=== PATIENT | male | born 1970 | race Caucasian/White ===

== ENCOUNTER 2018-04-02 12:34 | Outpatient (CLI) | payer BC ==
--- NOTE | 2018-04-02 13:45 | ULT ---
ULTRASOUND WITH DOPPLER DUPLEX VENOUS LOWER EXTREMITY LEFT: HISTORY: A 47-year-old male with M79.605, acute pain of left lower extremity. TECHNIQUE: Color flow Doppler, spectral waveform analysis of pulsed Doppler, and alfaro-scale imaging with taylor ceferino and augmentation were used to evaluate the left common femoral, femoral, popliteal, posterior ti bial, and superficial femoral veins, and the proximal portions of the profunda femoral and greater sa phenous veins. FINDINGS: There is normal compressibility, demonstration of blood flow by color Doppler and pulsed Doppler, and response to augmentation, in all interrogated veins. IMPRESSION: Negative. No deep vein thrombosis in the left lower extremity. jn[] POS: DAVID
== END 2018-04-02 12:35 | disposition home or self-care (01) ==
LOC: ULT 12:34
PROVIDERS: ATTEND Family Medicine
DX: M79.605 Pain in left leg (principal)

== ENCOUNTER 2018-05-02 14:43 | Outpatient (CLI) | payer BC ==
[~2018-05-02 14:43] MED LIST: Gadobenate Dimeglumine 529 MG/1 ML (20ML VIAL) ONE
--- NOTE | 2018-05-02 17:32 | RAD ---
TWO VIEWS OF THE LEFT FOOT: DATE: 05/02/2018. COMPARISON: None. HISTORY: Swelling and tenderness, edema and pain. FINDINGS: Mild degenerative change noted at the 1st metatarsal phalangeal joint. There is mild enthesophyte fo rmation at the insertion of the Achilles tendon. No displaced fracture or dislocation. IMPRESSION: No acute osseous abnormality. POS: C
--- NOTE | 2018-05-02 17:36 | RAD ---
LEFT FORELEG RADIOGRAPHS 2 VIEWS: DATE: 05/02/2018. PROVIDED CLINICAL HISTORY: Left leg pain. FINDINGS: No evidence for a fracture or other acute osseous abnormality. If there is persistent clinical penny rn, conservative management and followup imaging are advised. IMPRESSION: As above. POS: ZAYDA
--- NOTE | 2018-05-03 08:48 | MRI ---
MRI LEFT FORELEG: DATE: 05/02/2018. PROVIDED CLINICAL HISTORY: Left leg pain and swelling without injury. FINDINGS: Evaluation is limited by poor signal to noise ratio. There is diffuse noncircumscribed fluid signal intensity within the subcutaneous adipose layer circumferentially about the foreleg, primarily distal ly. There is a fascial-based fluid collection superficial to the medial head of the gastrocnemius mu scle which appears likely confluent with a Osei's cyst. There is also some signal alteration presen t within the gastrocnemius muscle and it is possible that this reflects sequelae of medial head gastr ocnemius injury with associated fascial hematoma. Regional marrow signal appears grossly normal. Th e courses of the regional major neurovascular structures appear grossly normal. IMPRESSION: 1. Limited study. 2. Diffuse noncircumscribed fluid signal intensity within the subcutaneous adipose layer about the f oreleg primarily distally. Lymphedema and cellulitis are possible. 3. Small fascial fluid collection superficial to the medial head of the gastrocnemius muscle. This may reflect changes related to ruptured Osei's cyst. This could also reflect fluid collection relat ed to prior myofascial tear of the medial head of the gastrocnemius muscle. POS: TPC
--- NOTE | 2018-05-03 08:55 | MRI ---
MRI LEFT KNEE WITH AND WITHOUT IV CONTRAST: Date: 05/02/18 PROVIDED CLINICAL HISTORY: Posterior left knee pain. FINDINGS: Evaluation for internal derangement is limited due to the protocol selected. The anterior cruciate li gament, posterior cruciate ligament, medial collateral ligament, and lateral collateral ligamentous c omplex appears intact, as does the extensor mechanism. Evaluation of the menisci, in particular, is limited. No evidence for displaced meniscal tear. There is articular cartilage loss that involves the full thickness of the articular cartilage involving the central weightbearing portions of the medial femoral condyle. There is a moderate to large knee joint effusion with Osei's cyst formation, which appears confluent with fluid signal intensity superficial to the medial head of the gastrocnemius mu scle that may indicate rupture. The postcontrast images demonstrate a somewhat thickened and enhancin g appearance to the synovium of the knee joint suggesting synovitis. Regional marrow and muscular sig nal appear normal. IMPRESSION: 1. Conspicuous degenerative chondrosis involving the central weightbearing portions of the medial fe moral condyle with full thickness articular cartilage loss. 2. Moderate to large knee joint effusion with findings suggesting synovitis and probable ruptured Ba ker's cyst. POS: TPC
== END 2018-05-02 14:44 | disposition home or self-care (01) ==
LOC: BICMRI 14:43
PROVIDERS: ATTEND Family Medicine
DX: M25.562 Pain in left knee (principal); M79.605 Pain in left leg; R60.0 Localized edema; I87.2 Venous insufficiency (chronic) (peripheral); M79.662 Pain in left lower leg; M25.462 Effusion, left knee; T14.8XXA Other injury of unspecified body region, initial encounter; M24.10 Other articular cartilage disorders, unspecified site
CPT/HCPCS: A9579

== ENCOUNTER 2018-10-29 12:53 | Outpatient (CLI) | payer BC ==
--- NOTE | 2018-10-29 13:11 | RAD ---
FExam: Chest 2 view HISTORY:Dyspnea Comparison: 04/04/2018 FINDINGS: Lungs: No masses or consolidation. Cardiac silhouette: Normal size Pulmonary vessels: Normal Pleural Spaces: Clear Pneumothorax: None Osseous abnormalities: Osseous degenerative changes IMPRESSION: No acute cardiopulmonary process.
== END 2018-10-29 12:54 | disposition home or self-care (01) ==
LOC: RAD 12:53
PROVIDERS: ATTEND Internal Medicine Critical Care Medicine
DX: R06.00 Dyspnea, unspecified (principal)
CPT/HCPCS: 71046

== ENCOUNTER 2019-12-17 14:59 | Inpatient (IN) | payer BC ==
[2019-12-17] MEDS ORDERED: Senokot S 8.6-50 MG TAB PO PRN (15:24)
[2019-12-17] MEDS ORDERED: Morphine 2 MG/ML SYRINGE SLOW IVP PRN (15:30)
[2019-12-17] MEDS: metroNIDAZOLE 500 MG in Premix Bag 1 BAG IVPB SCH (16:01)
[2019-12-17] MEDS: oxyCODONE/Acetaminophen 5 mg/325 mg Tablet PO PRN (16:01)
--- NOTE | 2019-12-17 16:13 | HP ---
CHIEF COMPLAINT: Throat pain. HISTORY OF PRESENT ILLNESS: A 49-year-old male with recent history of pneumonia , had swelling on his lower lips and also he has ongoing two weeks of nosebleed intermittently. He is recently recovering from pneumonia. He lives alone. He is a divorcee. He had a right hip replacement in the fall 2018. Since then, his functional status is declining, he states. He did not have any fever, night sweats, or chills. No sick exposure. He is using Afrin for his epistaxis. Currently, it is better. He is transferred from [facility]. His angioedema is improved. He is on lisinopril for some time and he stopped taking since last night. He quit smoking a couple of years ago. At a previous facility, Dr. Rodriguez, ENT has been notified. They had CT scan done, it showed phlegmon in the pharynx. He is transferred here for IV antibiotics and further ENT evaluation. REVIEW OF SYSTEMS: A 13-point review of systems reviewed. The pertinents addressed in the history of present illness, the rest are negative. Including no recent fever, night sweats, or chills. However, he is recently recovering from pneumonia. He has no currently productive cough. No chest pain, orthopnea, PND, or lower extremity edema. No nausea, vomiting, abdominal pain, constipation, hematuria, or dysuria. Denies any headache, tingling, or numbness in his extremities. PAST MEDICAL HISTORY: Hypertension. MEDICATIONS: Lisinopril. PAST SURGICAL HISTORY: Right hip replacement in the fall 2018. SOCIAL HISTORY: Quit smoking two years ago. He uses alcohol daily. FAMILY HISTORY: Noncontributory. PHYSICAL EXAMINATION: VITAL SIGNS: He is afebrile, normotensive. He looks nontoxic. HEENT: I did not examine him closely for his throat at this point as he is COVID rule out pending. CARDIOVASCULAR: Regular rate and rhythm without murmurs, rubs, or gallops. LUNGS: Clear to auscultation bilaterally. ABDOMEN: Soft, nontender, and nondistended. Good bowel sounds. EXTREMITIES: Without any pitting edema. NEUROLOGIC: No focal deficits. LABORATORY DATA: Labs done at [facility] did not show any elevated white count. CT scan showed some phlegmon in the retropharyngeal area. IMPRESSION AND PLAN: 1. A 49-year-old male with a history of hypertension on lisinopril, presented with angioedema in his lower lips as well as retropharyngeal abscess. 2. The patient received ceftriaxone, Flagyl, as well as vancomycin at the previous facility. I will start him here on Unasyn as well as Flagyl. I have consulted the ENT specialist, Dr. Rodriguez for further recommendations. They want to wait until COVID is ruled out. 3. Hypokalemia. His potassium is being replaced. 4. We will get stat labs for now as he is transferred from an outside facility. We will follow the clinical course. 5. He is hemodynamically stable. We will watch him closely. No significant swelling in his neck or the lips noted with the brief examination. 6. Full code. Job ID: [id number] MTDD
[2019-12-17] MEDS: Ampicillin/Sulbactam 1.5 GM in Sodium Chloride 0.9% 100 ML IVPB SCH ×2 (17:45→21:28)
[2019-12-17] MEDS: Sodium Chloride 0.9% 1,000 ML IV SCH (17:46)
[2019-12-18] MEDS: oxyCODONE/Acetaminophen 5 mg/325 mg Tablet PO PRN ×4 (00:03→23:04)
[2019-12-18] MEDS: metroNIDAZOLE 500 MG in Premix Bag 1 BAG IVPB SCH ×4 (00:03→23:03)
[2019-12-18] MEDS: Ampicillin/Sulbactam 1.5 GM in Sodium Chloride 0.9% 100 ML IVPB SCH ×4 (04:35→21:32)
[2019-12-18 05:05] LABS: #Basophils 0.1 thou/uL (0.0-0.2); #Lymphocytes 0.8 thou/uL (1.20-3.40); #Monocytes 0.8 thou/uL (0.11-0.59); #Neutrophils 5.4 thou/uL (1.40-6.50); %Eosinophils 0.1 % (0.0-10.0); %Lymphocytes 11.4 % (21.0-51.0); %Monocytes 11.4 % (0.0-10.0); %Neutrophils 76.2 % (42.0-75.0); Anion Gap 13 mmol/L (10-20); BUN (Urea Nitrogen) 13 mg/dL (8.9-20.6); Calc. Creatinine Clearance 218 mL/min (70-130); Calcium 8.1 mg/dL (7.8-10.44); Carbon Dioxide 24 mmol/L (22-29); Chloride 103 mmol/L (98-107); Estimated GFR-MDRD Greater than 90; Glucose 101 mg/dL (70-105); Hemoglobin 12.3 g/dL (14.0-18.0); Mean Corpuscular Hemoglobin 29.6 pg (27.0-31.0); Mean Corpuscular Volume 92.6 fL (78.0-98.0); Mean Platelet Volume 9.5 fL (7.4-10.4); Platelet Count 117 thou/uL (130-400); Platelet Morphology Comment Appears Decreased; RBC Distribution Width 14.5 % (11.5-14.5); Red Blood Cell (RBC) Count 4.17 mill/uL (4.70-6.10); Sodium 136 mmol/L (136-145)
[2019-12-18] MEDS ORDERED: Aluminum & Magnesium Hydroxide 60 ML, Lidocaine 2% Viscous Solution 30 ML, diphenhydrAM... SSW PRN (05:19)
[2019-12-18] MEDS: Aluminum & Magnesium Hydroxide 60 ML, Lidocaine 2% Viscous Solution 30 ML, diphenhydrAM... SSW PRN ×3 (06:09→23:03)
[2019-12-18 11:59] VITALS: BMI 42.9
--- NOTE | 2019-12-18 12:47 | PDOC.HOSPP ---
- Subjective Encounter Date: 12/18/19 Encounter Time: 09:40 Subjective: pt ambulkeyonna gin his room, able to eat and not much discomfort when swallows. explained ENT doc will see him after coivd r/o. facility where it was tested was contacted by nursing this am, and it appears they will call us w. the result, when they get it. - Objective Vital Signs & Weight: Vital Signs (12 hours) Temp Pulse Resp BP BP Pulse Ox 12/18/19 12:05 98.0 F 86 20 147/69 H 94 L 12/18/19 09:15 97.7 F 73 16 138/69 96 12/18/19 04:35 98.2 F 75 18 144/76 H 96 Weight Admit Weight 311 lb 8 oz Weight 316 lb 9.6 oz I&O: 12/17/19 12/18/19 12/19/19 06:59 06:59 06:59 Intake Total 1359 Balance 1359 Result Diagrams: 12/18/19 04:38 12/18/19 04:38 Hospitalist ROS - Medication Medications: Active Medications Generic Name Dose Route Start Last Admin Trade Name Freq PRN Reason Stop Dose Admin Al Hydroxide/Mg Hydroxide 60 0 ml 12/18/19 05:30 12/18/19 06:09 ml/ Lidocaine HCl 30 ml/ SSW 10 ml Diphenhydramine HCl 75 mg TID PRN Administration THROAT PAIN Ampicillin Sodium/Sulbactam 100 mls @ 200 mls/hr 12/17/19 16:00 12/18/19 10: 21 Sodium 1.5 gm/ Sodium Chloride IVPB 100 mls 0400,1000,1600,2200 LAKISHA Administration Metronidazole 500 mg/ Device 100 mls @ 100 mls/hr 12/17/19 16:00 12/18/19 09: 05 IVPB 100 mls 0800,1600,2359 LAKISHA Administration Sodium Chloride 1,000 mls @ 30 mls/hr 12/17/19 17:45 12/17/19 17:46 Normal Saline 0.9% IV 1,000 mls .Q24H LAKISHA Administration Vancomycin HCl 2 gm/ Sodium 500 mls @ 250 mls/hr 12/18/19 11:00 12/18/19 12: 00 Chloride IVPB 500 mls Q8H LAKISHA Administration Oxycodone/Acetaminophen 1 tab 12/17/19 15:29 12/18/19 04:59 Percocet 5/325 PO 1 tab Q4H PRN Administration Pain - Exam General Appearance: NAD, awake alert Eye: PERRL Neck: supple Heart: RRR Respiratory: CTAB, normal chest expansion Gastrointestinal: soft, normal bowel sounds Neurological: no focal deficits Psychiatric: normal behavior, A&O x 3 Hosp A/P - Plan angioedema --d/t ACEI - improved Retropharyngeal absecss --cw unasyn, flagyl and vanc -- explained ENT doc will see him after coivd r/o. facility where it was tested was contacted by nursing this am, and it appears they will call us w. the result, when they get it. --pending ENT evaluation.
[2019-12-18] MEDS: Sodium Chloride 0.9% 1,000 ML IV SCH (17:07)
[2019-12-18] MEDS ORDERED: Vancomycin 1 GM in Premix Bag 1 BAG IVPB SCH (21:00)
[2019-12-19 02:25] LABS: #Eosinphils 0.1 thou/uL (0.0-0.7); #Monocytes 0.5 thou/uL (0.11-0.59); #Neutrophils 4.5 thou/uL (1.40-6.50); %Basophils 0.6 % (0.0-1.0); %Eosinophils 0.8 % (0.0-10.0); %Lymphocytes 15.8 % (21.0-51.0); %Monocytes 8.8 % (0.0-10.0); Hemoglobin 12.8 g/dL (14.0-18.0); Mean Corpuscular HGB CONC 31.2 g/dL (32.0-36.0); Mean Corpuscular Hemoglobin 29.4 pg (27.0-31.0); Mean Corpuscular Volume 94.3 fL (78.0-98.0); Mean Platelet Volume 9.9 fL (7.4-10.4); Platelet Count 104 thou/uL (130-400); RBC Distribution Width 14.6 % (11.5-14.5); Red Blood Cell (RBC) Count 4.33 mill/uL (4.70-6.10); White Blood Cell (WBC) Count 6.1 thou/uL (4.8-10.8)
[2019-12-19 02:38] LABS: Vancomycin, Trough 17.2 ug/mL
[2019-12-19] MEDS: Ampicillin/Sulbactam 1.5 GM in Sodium Chloride 0.9% 100 ML IVPB SCH ×4 (04:45→21:57)
[2019-12-19] MEDS: metroNIDAZOLE 500 MG in Premix Bag 1 BAG IVPB SCH ×3 (07:42→23:23)
[2019-12-19] MEDS ORDERED: Iopamidol-370 76% 500 ML 1 ML ONE (09:58)
[2019-12-19] MEDS: Acetaminophen 325 MG TAB PO PRN ×2 (10:39→19:11)
[2019-12-19] MEDS: Aluminum & Magnesium Hydroxide 60 ML, Lidocaine 2% Viscous Solution 30 ML, diphenhydrAM... SSW PRN (10:39)
--- NOTE | 2019-12-19 12:30 | PDOC.HOSPP ---
- Subjective Encounter Date: 12/19/19 Encounter Time: 09:30 Subjective: pt feels quite nauseated. states that he has headache. able to have a good po intake. it appears no staffs noticed his emesis episodes. informed the pt to let the nursing know and d/w RN as well. pending covid test result. if negative , plan is to send him to ENT clinic here. If positive, then keep him as inpt and continue the medical mangaement for his retropharygeal abscess. [ie cont abx x7 days and if getting worse, we can involve Dr. Herr]. - Objective Vital Signs & Weight: Vital Signs (12 hours) Temp Pulse Resp BP Pulse Ox 12/19/19 11:00 98.4 F 84 16 176/76 H 95 12/19/19 07:45 98.5 F 85 16 153/68 H 93 L 12/19/19 05:05 98.3 F 88 18 167/82 H 93 L Weight Admit Weight 311 lb 8 oz Weight 316 lb 9.6 oz I&O: 12/18/19 12/19/19 12/20/19 06:59 06:59 06:59 Intake Total 1359 3600 Balance 1359 3600 Result Diagrams: 12/19/19 02:13 12/18/19 04:38 Hospitalist ROS - Medication Medications: Active Medications Generic Name Dose Route Start Last Admin Trade Name Freq PRN Reason Stop Dose Admin Acetaminophen 650 mg 12/17/19 15:24 12/19/19 10:39 Tylenol PO 650 mg Q4H PRN Administration Headache/Fever/Mild Pain (1-3) Al Hydroxide/Mg Hydroxide 60 0 ml 12/18/19 05:30 12/19/19 10:39 ml/ Lidocaine HCl 30 ml/ SSW 60 ml Diphenhydramine HCl 75 mg TID PRN Administration THROAT PAIN Ampicillin Sodium/Sulbactam 100 mls @ 200 mls/hr 12/17/19 16:00 12/19/19 09: 42 Sodium 1.5 gm/ Sodium Chloride IVPB 100 mls 0400,1000,1600,2200 LAKISHA Administration Metronidazole 500 mg/ Device 100 mls @ 100 mls/hr 12/17/19 16:00 12/19/19 07: 42 IVPB 100 mls 0800,1600,2359 LAKISHA Administration Sodium Chloride 1,000 mls @ 30 mls/hr 12/17/19 17:45 12/18/19 17:07 Normal Saline 0.9% IV 1,000 mls .Q24H LAKISHA Administration Vancomycin HCl 2 gm/ Sodium 500 mls @ 250 mls/hr 12/19/19 11:00 12/19/19 10: 38 Chloride IVPB 500 mls 0300,1100,1900 LAKISHA Administration Oxycodone/Acetaminophen 1 tab 12/17/19 15:29 12/18/19 23:04 Percocet 5/325 PO 1 tab Q4H PRN Administration Pain Sodium Chloride 10 ml 12/18/19 21:00 12/19/19 07:43 Flush - Normal Saline IVF 10 ml Q12HR LAKISHA Administration - Exam General Appearance: NAD, awake alert ENT: normocephalic atraumatic Neck: supple Heart: RRR Respiratory: CTAB, normal chest expansion Gastrointestinal: soft, normal bowel sounds Hosp A/P - Plan angioedema --d/t ACEI - improved Retropharyngeal absecss --cw unasyn, flagyl and vanc -- explained ENT doc will see him after coivd r/o. facility where it was tested was contacted by nursing this am, and it appears they will call us w. the result, when they get it. --pending ENT evaluation. pending covid test result. if negative, plan is to send him to ENT clinic here, per Dr. Rodriguez. If positive, then keep him as inpt and continue the medical mangaement for his retropharygeal abscess. [ie cont abx x7 days and if getting worse, we can involve Dr. Herr]. In my opinion, he may not need ID consult at this time, he is stable, no fever or high wbcs, and having good PO intake and no c/o dysphagia however, this am, he states that his pain is spreading to his ears-- he is on unasyn. H.e. since he is having nausea and headache, i am getting CT-head and CT - sinuses to make sure,w hat appears to be phlegmon is not spreading to [facility]. Dr. Rodriguez looked at the CT done at [facility] and felt that not overt abscess. pl follow up on HCT and sinuses and clinical course
[2019-12-19] MEDS: Sodium Chloride 0.9% 1,000 ML IV SCH (16:30)
--- NOTE | 2019-12-19 18:03 | CT ---
CT OF THE BRAIN WITHOUT CONTRAST: 12/19/19 COMPARISON: 04/04/18 HISTORY: Headache with nausea. TECHNIQUE: Multiple contiguous axial images were obtained in a CT of the brain without contrast. FINDINGS: The brain is normal in morphology and attenuation without focal lesions or o confluent areas of infar ction. There is no evidence of hydrocephalus, intracranial hemorrhage, or extra-axial fluid collectio n. The calvarium and overlying soft tissues are unremarkable. The visualized paranasal sinuses and masto id air cells are well aerated. IMPRESSION: No evidence of acute intracranial abnormality. POS: EAA
--- NOTE | 2019-12-19 18:32 | CT ---
CT SINUSES WITH CONTRAST: 12/19/19 COMPARISON: None. HISTORY: Headache. History of nose bleeds that take a long time of stop. Possible nasopharyngeal abscess. Eval uate for COVID-19. TECHNIQUE: Multiple contiguous axial images were obtained in a CT of the sinuses with contrast. Sagittal and cor onal reformats were performed. FINDINGS: No mucosal abnormality is seen in the nasopharynx or oropharynx. No focal fluid collection is seen. The paranasal sinuses are well aerated without mucosal thickening or opacification. The mastoid air c ells are well aerated. No facial fractures are identified. The globes and retrobulbar soft tissues are unremarkable. IMPRESSION: No significant abnormality. POS: EAA
[2019-12-19] MEDS: oxyCODONE/Acetaminophen 5 mg/325 mg Tablet PO PRN (21:57)
[2019-12-20] MEDS: Ampicillin/Sulbactam 1.5 GM in Sodium Chloride 0.9% 100 ML IVPB SCH ×5 (04:26→22:00)
[2019-12-20 05:51] LABS: #Eosinphils 0.2 thou/uL (0.0-0.7); #Lymphocytes 0.8 thou/uL (1.20-3.40); #Monocytes 0.5 thou/uL (0.11-0.59); #Neutrophils 3.5 thou/uL (1.40-6.50); %Basophils 0.2 % (0.0-1.0); %Eosinophils 3.3 % (0.0-10.0); %Monocytes 9.2 % (0.0-10.0); %Neutrophils 70.3 % (42.0-75.0); Hemoglobin 12.2 g/dL (14.0-18.0); Mean Corpuscular HGB CONC 31.3 g/dL (32.0-36.0); Mean Corpuscular Hemoglobin 29.3 pg (27.0-31.0); Mean Corpuscular Volume 93.6 fL (78.0-98.0); Mean Platelet Volume 9.7 fL (7.4-10.4); Platelet Count 107 thou/uL (130-400); RBC Distribution Width 14.8 % (11.5-14.5); Red Blood Cell (RBC) Count 4.17 mill/uL (4.70-6.10); White Blood Cell (WBC) Count 4.9 thou/uL (4.8-10.8)
[2019-12-20] MEDS: metroNIDAZOLE 500 MG in Premix Bag 1 BAG IVPB SCH ×2 (07:41→17:49)
[2019-12-20 10:52] LABS: Vancomycin, Trough 14.6 ug/mL
[2019-12-20] MEDS: oxyCODONE/Acetaminophen 5 mg/325 mg Tablet PO PRN ×2 (13:15→22:51)
--- NOTE | 2019-12-20 13:34 | PDOC.HOSPP ---
- Subjective Encounter Date: 12/20/19 Encounter Time: 13:33 Subjective: Mr. Schwartz was seen today in follow-up of epistaxis, Angioedema, and retropharyngeal abscess. He says he feels fine. He noted just a small amount of bleeding from his nose earlier. He denies trouble speaking or swallowing or breathing. - Objective Vital Signs & Weight: Vital Signs (12 hours) Temp Pulse Resp BP BP Pulse Ox 12/20/19 11:20 97.7 F 78 18 168/80 H 93 L 12/20/19 07:30 98.3 F 77 20 148/70 H 95 12/20/19 04:40 98.3 F 73 20 157/80 H 94 L Weight Admit Weight 311 lb 8 oz Weight 316 lb 9.6 oz I&O: 12/19/19 12/20/19 12/21/19 06:59 06:59 06:59 Intake Total 3600 3875 Balance 3600 3875 Result Diagrams: 12/20/19 04:35 12/18/19 04:38 Hospitalist ROS - Medication Medications: Active Medications Generic Name Dose Route Start Last Admin Trade Name Freq PRN Reason Stop Dose Admin Acetaminophen 650 mg 12/17/19 15:24 12/19/19 19:11 Tylenol PO 650 mg Q4H PRN Administration Headache/Fever/Mild Pain (1-3) Al Hydroxide/Mg Hydroxide 60 0 ml 12/18/19 05:30 12/19/19 10:39 ml/ Lidocaine HCl 30 ml/ SSW 60 ml Diphenhydramine HCl 75 mg TID PRN Administration THROAT PAIN Ampicillin Sodium/Sulbactam 100 mls @ 200 mls/hr 12/17/19 16:00 12/20/19 11: 15 Sodium 1.5 gm/ Sodium Chloride IVPB 100 mls 0400,1000,1600,2200 LAKISHA Administration Metronidazole 500 mg/ Device 100 mls @ 100 mls/hr 12/17/19 16:00 12/20/19 07: 41 IVPB 100 mls 0800,1600,2359 LAKISHA Administration Sodium Chloride 1,000 mls @ 30 mls/hr 12/17/19 17:45 12/19/19 16:30 Normal Saline 0.9% IV 1,000 mls .Q24H LAKISHA Administration Vancomycin HCl 2 gm/ Sodium 500 mls @ 250 mls/hr 12/19/19 11:00 12/20/19 13: 15 Chloride IVPB 500 mls 0300,1100,1900 LAKISHA Administration Oxycodone/Acetaminophen 1 tab 12/17/19 15:29 12/20/19 13:15 Percocet 5/325 PO 1 tab Q4H PRN Administration Pain Sodium Chloride 10 ml 12/18/19 21:00 12/20/19 07:42 Flush - Normal Saline IVF 10 ml Q12HR LAKISHA Administration - Exam Eye: PERRL, anicteric sclera Neck - other findings: No stridor Heart: RRR, no murmur, no gallops, no rubs Respiratory: CTAB, no wheezes, no rales, no ronchi, normal chest expansion, no tachypnea Gastrointestinal: soft, non-tender, non-distended, normal bowel sounds, no palpable masses, no hepatomegaly Extremities: no cyanosis, no clubbing, no edema Hosp A/P (1) Retropharyngeal abscess Code(s): J39.0 - RETROPHARYNGEAL AND PARAPHARYNGEAL ABSCESS Status: Acute (2) Epistaxis Code(s): R04.0 - EPISTAXIS Status: Acute (3) Angioedema Code(s): T78.3XXA - ANGIONEUROTIC EDEMA, INITIAL ENCOUNTER Status: Acute (4) Hypertension Code(s): I10 - ESSENTIAL (PRIMARY) HYPERTENSION Status: Acute - Plan * Retropharyngeal abscess- continue Unasyn, and Vancomycin * Can discontinue Flagyl * Epistaxis- resolving * Angioedema- will continue off Lisinopril * HTN- change blood pressure medication to Amlodipine
[2019-12-20] MEDS ORDERED: Amlodipine 5 MG TAB PO SCH (14:00)
[2019-12-20] MEDS: Sodium Chloride 0.9% 1,000 ML IV SCH (16:00)
[2019-12-20] MEDS ORDERED: Labetalol HCl 100 MG/20 ML VIAL SLOW IVP PRN (17:55)
[2019-12-20] MEDS ORDERED: hydrALAZINE 20 MG/ML VIAL SLOW IVP PRN (17:55)
[2019-12-20 19:55] LABS: SARS-CoV-2 MS2 Positive; SARS-CoV-2 N Gene Negative; SARS-CoV-2 S Gene Negative; SARS-CoV-2 orf1ab Negative
[2019-12-20] MEDS: cloNIDine 0.1 MG TAB PO PRN (21:30)
[2019-12-20] MEDS: Acetaminophen 325 MG TAB PO PRN (21:30)
[2019-12-21] MEDS: cloNIDine 0.1 MG TAB PO PRN (00:04)
[2019-12-21] MEDS: Ampicillin/Sulbactam 1.5 GM in Sodium Chloride 0.9% 100 ML IVPB SCH ×4 (00:40→22:56)
[2019-12-21 04:07] LABS: #Eosinphils 0.2 thou/uL (0.0-0.7); #Lymphocytes 1.1 thou/uL (1.20-3.40); #Monocytes 0.6 thou/uL (0.11-0.59); #Neutrophils 4.6 thou/uL (1.40-6.50); %Basophils 0.7 % (0.0-1.0); %Eosinophils 3.8 % (0.0-10.0); %Monocytes 9.2 % (0.0-10.0); %Neutrophils 70.3 % (42.0-75.0); Hemoglobin 12.4 g/dL (14.0-18.0); Mean Corpuscular HGB CONC 31.5 g/dL (32.0-36.0); Mean Corpuscular Hemoglobin 29.5 pg (27.0-31.0); Mean Corpuscular Volume 93.9 fL (78.0-98.0); Mean Platelet Volume 9.2 fL (7.4-10.4); Platelet Count 114 thou/uL (130-400); RBC Distribution Width 15.3 % (11.5-14.5); Red Blood Cell (RBC) Count 4.19 mill/uL (4.70-6.10); White Blood Cell (WBC) Count 6.6 thou/uL (4.8-10.8)
[2019-12-21] MEDS: Amlodipine 5 MG TAB PO SCH (08:17)
[2019-12-21] MEDS: oxyCODONE/Acetaminophen 5 mg/325 mg Tablet PO PRN ×2 (08:17→20:04)
--- NOTE | 2019-12-21 15:06 | PDOC.HOSPP ---
- Subjective Encounter Date: 12/21/19 Encounter Time: 15:04 Subjective: Ms. Schwartz was seen today in follow-up of Angioedema, and retropharyngeal abscess. He notes some pain in the back of his throat off and on , especially when he talks. He also notes a headache off and on. - Objective Vital Signs & Weight: Vital Signs (12 hours) Temp Pulse Resp BP BP Pulse Ox 12/21/19 11:01 86 18 179/85 H 93 L 12/21/19 08:12 98.7 F 81 20 184/89 H 94 L 12/21/19 08:11 94 L Weight Admit Weight 311 lb 8 oz Weight 316 lb 9.6 oz I&O: 12/20/19 12/21/19 12/22/19 06:59 06:59 06:59 Intake Total 3875 840 Output Total 800 700 Balance 3875 40 -700 Result Diagrams: 12/21/19 03:31 12/18/19 04:38 Hospitalist ROS - Medication Medications: Active Medications Generic Name Dose Route Start Last Admin Trade Name Freq PRN Reason Stop Dose Admin Acetaminophen 650 mg 12/17/19 15:24 12/20/19 21:30 Tylenol PO 650 mg Q4H PRN Administration Headache/Fever/Mild Pain (1-3) Amlodipine Besylate 5 mg 12/21/19 09:00 12/21/19 08:17 Norvasc PO 5 mg DAILY LAKISHA Administration Clonidine 0.1 mg 12/20/19 17:55 12/21/19 00:04 Catapres PO 0.1 mg Q4H PRN Administration SBP Greater Than 170 Al Hydroxide/Mg Hydroxide 60 0 ml 12/18/19 05:30 12/19/19 10:39 ml/ Lidocaine HCl 30 ml/ SSW 60 ml Diphenhydramine HCl 75 mg TID PRN Administration THROAT PAIN Hydralazine HCl 10 mg 12/20/19 17:55 12/21/19 03:54 Apresoline SLOW IVP 10 mg Q4H PRN Administration SBP > 180 and HR < 70 Sodium Chloride 1,000 mls @ 30 mls/hr 12/17/19 17:45 12/20/19 16:00 Normal Saline 0.9% IV 1,000 mls .Q24H LAKISHA Administration Vancomycin HCl 2 gm/ Sodium 500 mls @ 250 mls/hr 12/19/19 11:00 12/21/19 10: 54 Chloride IVPB 500 mls 0300,1100,1900 LAKISHA Administration Ampicillin Sodium/Sulbactam 100 mls @ 200 mls/hr 12/20/19 23:59 12/21/19 14: 32 Sodium 1.5 gm/ Sodium Chloride IVPB 100 mls Q6HR LAKISHA Administration Oxycodone/Acetaminophen 1 tab 12/17/19 15:29 12/21/19 08:17 Percocet 5/325 PO 1 tab Q4H PRN Administration Pain Sodium Chloride 10 ml 12/18/19 21:00 12/21/19 08:19 Flush - Normal Saline IVF Not Given Q12HR LAKISHA - Exam Eye: PERRL, anicteric sclera Neck - other findings: no stridor Heart: RRR, no murmur, no gallops, no rubs, normal peripheral pulses Respiratory: CTAB, no wheezes, no rales, no ronchi, normal chest expansion, no tachypnea, normal percussion Gastrointestinal: soft, non-tender, non-distended, normal bowel sounds, no palpable masses, no hepatomegaly Extremities: no cyanosis, no edema Hosp A/P (1) Retropharyngeal abscess Code(s): J39.0 - RETROPHARYNGEAL AND PARAPHARYNGEAL ABSCESS Status: Acute (2) Epistaxis Code(s): R04.0 - EPISTAXIS Status: Acute (3) Angioedema Code(s): T78.3XXA - ANGIONEUROTIC EDEMA, INITIAL ENCOUNTER Status: Acute (4) Hypertension Code(s): I10 - ESSENTIAL (PRIMARY) HYPERTENSION Status: Acute - Plan * Retropharyngeal abscess- continue Unasyn, and Vancomycin * Await ENT evaluation * Epistaxis- resolved * Angioedema- will continue off Lisinopril * HTN- Amlodipine was just started today- his blood pressure is a bit elevated - will continue Amlodipine and monitor the trend.
[2019-12-21] MEDS: Acetaminophen 325 MG TAB PO PRN (17:15)
[2019-12-22] MEDS: Ampicillin/Sulbactam 1.5 GM in Sodium Chloride 0.9% 100 ML IVPB SCH ×3 (02:10→15:50)
[2019-12-22] MEDS: Sodium Chloride 0.9% 1,000 ML IV SCH (07:28)
[2019-12-22] MEDS: Amlodipine 5 MG TAB PO SCH (08:18)
[2019-12-22] MEDS: oxyCODONE/Acetaminophen 5 mg/325 mg Tablet PO PRN ×2 (11:50→16:00)
--- NOTE | 2019-12-22 15:18 | PDOC.HOSPP ---
- Subjective Encounter Date: 12/22/19 Encounter Time: 15:16 Subjective: Mr. Schwartz was seen today in follow-up of retropharyngeal abscess and angioedema. He does not have any new complaints. - Objective Vital Signs & Weight: Vital Signs (12 hours) Temp Pulse Resp BP BP Pulse Ox 12/22/19 11:40 98.4 F 90 18 162/79 H 95 12/22/19 08:03 98.8 F 94 22 H 175/83 H 95 12/22/19 04:00 98.3 F 87 18 175/82 H 95 Weight Admit Weight 311 lb 8 oz Weight 309 lb 15.519 oz I&O: 12/21/19 12/22/19 12/23/19 06:59 06:59 06:59 Intake Total 840 3240 Output Total 800 700 Balance 40 2540 Result Diagrams: 12/21/19 03:31 12/18/19 04:38 Hospitalist ROS - Medication Medications: Active Medications Generic Name Dose Route Start Last Admin Trade Name Freq PRN Reason Stop Dose Admin Acetaminophen 650 mg 12/17/19 15:24 12/21/19 17:15 Tylenol PO 650 mg Q4H PRN Administration Headache/Fever/Mild Pain (1-3) Amlodipine Besylate 5 mg 12/21/19 09:00 12/22/19 08:18 Norvasc PO 5 mg DAILY LAKISHA Administration Clonidine 0.1 mg 12/20/19 17:55 12/21/19 00:04 Catapres PO 0.1 mg Q4H PRN Administration SBP Greater Than 170 Al Hydroxide/Mg Hydroxide 60 0 ml 12/18/19 05:30 12/19/19 10:39 ml/ Lidocaine HCl 30 ml/ SSW 60 ml Diphenhydramine HCl 75 mg TID PRN Administration THROAT PAIN Hydralazine HCl 10 mg 12/20/19 17:55 12/21/19 03:54 Apresoline SLOW IVP 10 mg Q4H PRN Administration SBP > 180 and HR < 70 Sodium Chloride 1,000 mls @ 30 mls/hr 12/17/19 17:45 12/22/19 07:28 Normal Saline 0.9% IV 1,000 mls .Q24H LAKISHA Administration Vancomycin HCl 2 gm/ Sodium 500 mls @ 250 mls/hr 12/19/19 11:00 12/22/19 11: 51 Chloride IVPB 500 mls 0300,1100,1900 LAKISHA Administration Ampicillin Sodium/Sulbactam 100 mls @ 200 mls/hr 12/21/19 20:30 12/22/19 08: 17 Sodium 1.5 gm/ Sodium Chloride IVPB 100 mls Q6H LAKISHA Administration Oxycodone/Acetaminophen 1 tab 12/17/19 15:29 12/22/19 11:50 Percocet 5/325 PO 1 tab Q4H PRN Administration Pain Sodium Chloride 10 ml 12/18/19 21:00 12/22/19 08:18 Flush - Normal Saline IVF 10 ml Q12HR LAKISHA Administration - Exam Eye: PERRL, anicteric sclera ENT: no oropharyngeal lesions, moist mucosa Neck - other findings: no stridor Heart: RRR, no murmur, no gallops, no rubs, normal peripheral pulses Respiratory: CTAB, no wheezes, no rales, no ronchi, normal chest expansion Gastrointestinal: soft, non-tender, non-distended, normal bowel sounds Extremities: no cyanosis, no edema Hosp A/P (1) Retropharyngeal abscess Code(s): J39.0 - RETROPHARYNGEAL AND PARAPHARYNGEAL ABSCESS Status: Acute (2) Epistaxis Code(s): R04.0 - EPISTAXIS Status: Acute (3) Angioedema Code(s): T78.3XXA - ANGIONEUROTIC EDEMA, INITIAL ENCOUNTER Status: Acute (4) Hypertension Code(s): I10 - ESSENTIAL (PRIMARY) HYPERTENSION Status: Acute - Plan * Retropharyngeal abscess- he is clinically improving * ENT was called. Since he is clinically stable he can be seen as an outpatient * Epistaxis- resolved * Angioedema- will continue off Lisinopril * HTN- Amlodipine was just started today- his blood pressure is a bit elevated - will continue Amlodipine and monitor the trend. * Stable for discharge home with close outpatient follow-up.
[2019-12-22 15:56] VITALS: BP 175/88; TEMP 98.8
[2019-12-22] MEDS: cloNIDine 0.1 MG TAB PO PRN (15:57)
--- NOTE | 2019-12-22 16:45 | DIS ---
DATE OF ADMISSION: 12/17/2019 DATE OF DISCHARGE: 12/22/2019 PRIMARY CARE PHYSICIAN: Sabas Carver MD DISCHARGE DIAGNOSES: 1. Retropharyngeal abscess. 2. Angioedema, likely secondary to lisinopril. 3. Hypertension, poorly controlled. 4. Morbid obesity with a BMI of 42. He is 6 feet tall, 309 pounds. 5. Epistaxis, resolved. DISCHARGE MEDICATIONS: 1. Augmentin 875 mg one p.o. twice daily for 7 days, multivitamin once daily. 2. Amlodipine 5 mg p.o. daily. 3. Florastor 250 mg p.o. daily. IMAGING STUDIES: Done during his hospital stay, the patient had a CT scan of the brain, which was negative for any acute intracranial abnormalities. The patient had a CT scan of the sinuses, which was negative. CODE STATUS: Full code. ALLERGIES: TO LISINOPRIL, WHICH IS A NEW ALLERGY DURING THIS HOSPITAL STAY. HOSPITAL COURSE: Mr. Schwartz is a pleasant 49-year-old gentleman, who was sent to our facility from the [facility] Emergency Room after he had presented there with lip and tongue swelling after suffering an episode of epistaxis and he was also noting some soreness in his throat. He had been on lisinopril for several years and being that this was the only likely culprit for the angioedema after doing a historical questioning, this was discontinued. He was transferred to our facility due to concerns for a possible retropharyngeal abscess. ENT was consulted and Dr. Rodriguez recommended that he be placed on IV antibiotics and monitored in the hospital for a few days. The patient never had any stridor or any findings of his airway compromise. Over the course of the next several days, he continued to improve. After removal of the lisinopril, the angioedema resolved completely. He was changed from lisinopril to amlodipine for blood pressure management. At the time of discharge, his blood pressure which had been as high as 180 and 190 systolic was down to 162 systolic and we expect continued blood pressure lowering with this dose of medication over the course of the next several days. This was explained to the patient and also that he would need close outpatient followup with Dr. Carver, who could continue to adjust and titrate his blood pressure medication. With regard to the retropharyngeal abscess, again there was no evidence of any airway compromise and therefore, the ENT evaluation will be deferred as an outpatient given that this was a holiday weekend and there was no emergent need for evaluation. Job ID: [id number]
== END 2019-12-22 17:30 | disposition home or self-care (01) | DRG 153 ==
LOC: 2SW 14:59 → 2NO 12-20 23:34
PROVIDERS: ADMIT Internal Medicine; ATTEND Internal Medicine
DX: J39.0 Retropharyngeal and parapharyngeal abscess (principal); Z68.41 Body mass index [BMI] 40.0-44.9, adult; E87.6 Hypokalemia; Z96.641 Presence of right artificial hip joint; W19.XXXA Unspecified fall, initial encounter; T78.3XXA Angioneurotic edema, initial encounter; I10 Essential (primary) hypertension; R04.0 Epistaxis; E66.01 Morbid (severe) obesity due to excess calories; T46.4X5A Adverse effect of angiotensin-converting-enzyme inhibitors, initial encounter; Z87.01 Personal history of pneumonia (recurrent); Z87.891 Personal history of nicotine dependence
CPT/HCPCS: 36415; 70450; 80048; 80202; 85025; 87635; J0295; J0360; J3370; J3490; J7030; Q0163; Q9967; U0003

== ENCOUNTER 2020-11-16 03:49 | Inpatient (IN) | payer BC ==
[2020-11-16 05:01] LABS: #Basophils 0.2 thou/uL (0.0-0.2); #Eosinphils 0.2 thou/uL (0.0-0.7); #Lymphocytes 3.2 thou/uL (1.20-3.40); #Monocytes 1.4 thou/uL (0.11-0.59); #Neutrophils 5.2 thou/uL (1.40-6.50); %Basophils 1.5 % (0.0-1.0); %Eosinophils 2.4 % (0.0-10.0); %Lymphocytes 30.9 % (21.0-51.0); %Monocytes 13.8 % (0.0-10.0); %Neutrophils 51.3 % (42.0-75.0); Mean Corpuscular HGB CONC 30.9 g/dL (32.0-36.0); Mean Corpuscular Volume 90.7 fL (78.0-98.0); Mean Platelet Volume 10.2 fL (7.4-10.4); Platelet Count 144 thou/uL (130-400); RBC Distribution Width 19.6 % (11.5-14.5); Red Blood Cell (RBC) Count 3.19 mill/uL (4.70-6.10); White Blood Cell (WBC) Count 10.2 thou/uL (4.8-10.8)
[2020-11-16 05:24] LABS: ALT (SGPT) 29 U/L (8-55); AST (SGOT) 109 U/L (5-34); Albumin 3.2 g/dL (3.5-5.0); Alkaline Phosphatase 160 U/L (40-110); Anion Gap 14 mmol/L (10-20); BUN (Urea Nitrogen) 9 mg/dL (8.9-20.6); Calc. Creatinine Clearance 0 mL/min (70-130); Calcium 9.5 mg/dL (7.8-10.44); Carbon Dioxide 27 mmol/L (22-29); Chloride 104 mmol/L (98-107); Globulin 4.2 g/dL (2.4-3.5); Glucose 100 mg/dL (70-105); Potassium 3.5 mmol/L (3.5-5.1); Protein, Total 7.4 g/dL (6.0-8.3); Sodium 141 mmol/L (136-145)
[2020-11-16] MEDS ORDERED: Furosemide 40 MG/4 ML VIAL ONE ×2 (05:42→13:16)
[2020-11-16 07:39] LABS: Troponin I 0.028 ng/mL (< 0.028)
[2020-11-16 10:38] LABS: Troponin I 0.025 ng/mL (< 0.028)
[2020-11-16] MEDS ORDERED: Magnesium 2 GM/50 ML 2 GM in Premix Bag 1 BAG IVPB SCH (11:15)
[2020-11-16] MEDS ORDERED: Magnesium 2 GM/50 ML BAG (IN WATER) ONE (13:17)
[2020-11-16] MEDS ORDERED: methylPREDNISolone Sod Succ 40 MG VIAL ONE (13:17)
[2020-11-16] MEDS: methylPREDNISolone Sod Succ 40 MG VIAL IVP SCH ×2 (13:35→21:55)
[2020-11-16] MEDS: Furosemide 40 MG/4 ML VIAL SLOW IVP SCH (13:35)
[2020-11-16] MEDS ORDERED: Acetaminophen 325 MG TAB ONE ×2 (14:35)
[2020-11-16] MEDS: Acetaminophen 325 MG TAB PO PRN ×2 (14:40→19:23)
[2020-11-16 16:30] LABS: Amphetamine Not Detected (NotDetected); Barbiturates Screen Not Detected (NotDetected); Benzodiazepine Screen Not Detected (NotDetected); Cocaine Metabolite Screen Not Detected (NotDetected); Medtox Control Line Valid? VALID (VALID); Medtox Reader # READER 4; Methadone Not Detected (NotDetected); Methamphetamine Not Detected (NotDetected); Opiate Screen Not Detected (NotDetected); Oxycodone Screen Not Detected (NotDetected); Phencyclidine (PCP) Not Detected (NotDetected); THC/Cannabinoid Screen Not Detected (NotDetected); Tricyclic Screen Not Detected (NotDetected)
[2020-11-16] MEDS ORDERED: Ondansetron PF 4 MG/2 ML Vial IVP PRN (18:45)
[2020-11-16] MEDS ORDERED: Ondansetron ODT 4 MG TAB PO PRN (18:45)
[2020-11-16] MEDS ORDERED: Labetalol HCl 100 MG/20 ML VIAL SLOW IVP PRN (18:46)
[2020-11-16 19:14] LABS: Hemoglobin 9.1 g/dL (14.0-18.0)
[2020-11-16] MEDS: hydrALAZINE 20 MG/ML VIAL SLOW IVP PRN (19:24)
[2020-11-16] MEDS: Metoprolol Tartrate 50 MG TAB PO SCH (21:54)
[2020-11-16] MEDS: Pantoprazole 40 MG VIAL IVP SCH (21:56)
[2020-11-17 00:01] LABS: Hemoglobin 9.3 g/dL (14.0-18.0)
[2020-11-17] MEDS: Acetaminophen 325 MG TAB PO PRN (00:40)
[2020-11-17] MEDS: Furosemide 40 MG/4 ML VIAL SLOW IVP SCH ×2 (05:31→16:30)
[2020-11-17] MEDS: methylPREDNISolone Sod Succ 40 MG VIAL IVP SCH (05:31)
[2020-11-17 06:29] LABS: #Basophils 0.1 thou/uL (0.0-0.2); #Lymphocytes 0.9 thou/uL (1.20-3.40); #Monocytes 0.5 thou/uL (0.11-0.59); #Neutrophils 6.4 thou/uL (1.40-6.50); %Basophils 0.7 % (0.0-1.0); %Eosinophils 0.1 % (0.0-10.0); %Lymphocytes 11.9 % (21.0-51.0); %Monocytes 6.4 % (0.0-10.0); %Neutrophils 80.9 % (42.0-75.0); Mean Corpuscular HGB CONC 32.1 g/dL (32.0-36.0); Mean Corpuscular Hemoglobin 28.9 pg (27.0-31.0); Mean Platelet Volume 10.2 fL (7.4-10.4); Platelet Count 123 thou/uL (130-400); RBC Distribution Width 19.6 % (11.5-14.5); Red Blood Cell (RBC) Count 3.44 mill/uL (4.70-6.10); White Blood Cell (WBC) Count 7.9 thou/uL (4.8-10.8)
[2020-11-17 06:37] LABS: SARS-CoV-2 PCR by NAA Not Detected (NotDetected)
[2020-11-17 06:49] LABS: Anion Gap 16 mmol/L (10-20); BUN (Urea Nitrogen) 11 mg/dL (8.9-20.6); Calc. Creatinine Clearance 184 mL/min (70-130); Calcium 9.4 mg/dL (7.8-10.44); Carbon Dioxide 28 mmol/L (22-29); Chloride 97 mmol/L (98-107); Glucose 124 mg/dL (70-105); Iron 125 ug/dL (65-175); Iron Binding Capacity, Total 394 mcg/dL (261-462); Potassium 3.9 mmol/L (3.5-5.1); Sodium 137 mmol/L (136-145)
[2020-11-17 07:08] LABS: Ferritin 95.57 ng/mL (22-322); Thyroid Stimulating Hormone 2.1806 uIU/mL (0.35-4.94)
[2020-11-17] MEDS: hydrALAZINE 20 MG/ML VIAL SLOW IVP PRN (08:36)
[2020-11-17] MEDS: Pantoprazole 40 MG VIAL IVP SCH ×2 (08:43→20:22)
[2020-11-17] MEDS ORDERED: Pantoprazole 40 MG VIAL IVP SCH (09:00)
[2020-11-17] MEDS ORDERED: Non-Formulary Item 1 EACH (Magnesium [Magnesium] 30 MG Tablet) PO SCH (09:00)
[2020-11-17] MEDS ORDERED: Amlodipine 10 MG TAB PO SCH (09:45)
[2020-11-17] MEDS ORDERED: hydrALAZINE 25 MG TAB PO SCH (09:45)
[2020-11-17] MEDS: Fioricet 325/50/40 mg Tablet PO PRN ×2 (10:29→20:24)
[2020-11-17] MEDS: Aspirin Chewable 81 MG TAB PO SCH (11:35)
[2020-11-17] MEDS: Metoprolol Tartrate 50 MG TAB PO SCH ×3 (11:35→20:20)
[2020-11-17] MEDS: Potassium Chloride 10 MEQ TAB PO SCH (11:37)
[2020-11-17] MEDS: Multivit, Therapeutic 1 TAB PO SCH (11:37)
[2020-11-17] MEDS ORDERED: Magnesium 2 GM/50 ML 2 GM in Premix Bag 1 BAG IVPB SCH (12:15)
[2020-11-17 13:34] VITALS: BMI 42.7
[2020-11-17] MEDS: hydrALAZINE 25 MG TAB PO SCH ×2 (16:30→20:19)
[2020-11-17 19:18] LABS: Cardiac Risk 6.8 (Less than 4.5)
[2020-11-17 19:58] LABS: Hemoglobin A1c 4.2 % (4.0-6.0)
[2020-11-18] MEDS: Fioricet 325/50/40 mg Tablet PO PRN (04:16)
[2020-11-18] MEDS: Furosemide 40 MG/4 ML VIAL SLOW IVP SCH ×2 (05:11→14:13)
[2020-11-18 07:46] LABS: #Lymphocytes 1.8 thou/uL (1.20-3.40); #Monocytes 1.3 thou/uL (0.11-0.59); #Neutrophils 6.4 thou/uL (1.40-6.50); %Basophils 0.2 % (0.0-1.0); %Eosinophils 0.5 % (0.0-10.0); %Lymphocytes 18.8 % (21.0-51.0); %Monocytes 13.4 % (0.0-10.0); %Neutrophils 67.1 % (42.0-75.0); Hemoglobin 9.2 g/dL (14.0-18.0); Mean Corpuscular HGB CONC 32.1 g/dL (32.0-36.0); Mean Corpuscular Hemoglobin 28.9 pg (27.0-31.0); Mean Platelet Volume 10.3 fL (7.4-10.4); Platelet Count 132 thou/uL (130-400); RBC Distribution Width 19.3 % (11.5-14.5); White Blood Cell (WBC) Count 9.5 thou/uL (4.8-10.8)
[2020-11-18] MEDS: Aspirin Chewable 81 MG TAB PO SCH (08:06)
[2020-11-18] MEDS: hydrALAZINE 25 MG TAB PO SCH (08:06)
[2020-11-18] MEDS: Potassium Chloride 10 MEQ TAB PO SCH (08:08)
[2020-11-18] MEDS: Metoprolol Tartrate 50 MG TAB PO SCH ×3 (08:08→14:21)
[2020-11-18] MEDS: Multivit, Therapeutic 1 TAB PO SCH (08:08)
[2020-11-18] MEDS: Pantoprazole 40 MG VIAL IVP SCH (08:09)
[2020-11-18 08:10] LABS: Anion Gap 15 mmol/L (10-20); BUN (Urea Nitrogen) 17 mg/dL (8.9-20.6); Calc. Creatinine Clearance 154 mL/min (70-130); Calcium 9.1 mg/dL (7.8-10.44); Carbon Dioxide 30 mmol/L (22-29); Chloride 95 mmol/L (98-107); Glucose 96 mg/dL (70-105); Potassium 3.1 mmol/L (3.5-5.1); Sodium 137 mmol/L (136-145)
[2020-11-18] MEDS ORDERED: Amlodipine 10 MG TAB PO SCH (09:00)
[2020-11-18 12:08] VITALS: BP 110/51; TEMP 98.3
[2020-11-18] MEDS ORDERED: Potassium Chloride 20 MEQ TAB PO SCH (13:15)
== END 2020-11-18 16:17 | disposition home or self-care (01) | DRG 291 ==
LOC: ERS 03:49 → ERHOLD 06:30 → OBSVTOIN 06:30 → 2SW 15:54
PROVIDERS: ADMIT Internal Medicine; ATTEND Internal Medicine
DX: I11.0 Hypertensive heart disease with heart failure (principal); I50.31 Acute diastolic (congestive) heart failure; J39.0 Retropharyngeal and parapharyngeal abscess; Z20.822 Contact with and (suspected) exposure to COVID-19; Z96.641 Presence of right artificial hip joint; D64.9 Anemia, unspecified; Z51.5 Encounter for palliative care; T78.3XXA Angioneurotic edema, initial encounter; R04.0 Epistaxis; E78.00 Pure hypercholesterolemia, unspecified; E66.9 Obesity, unspecified; Z68.41 Body mass index [BMI] 40.0-44.9, adult; Z87.891 Personal history of nicotine dependence; Z88.8 Allergy status to other drugs, medicaments and biological substances; Z79.82 Long term (current) use of aspirin; Z79.899 Other long term (current) drug therapy
CPT/HCPCS: 36415; 36416; 70450; 71045; 80048; 80053; 80061; 80306; 82274; 82728; 83036; 83540; 83550; 83735; 83880; 84443; 84484; 85025; 87635; 93005; 93010; 93306; 93970; 96365; 96374; 96375; 96376; C9113; G0378; J0360; J1940; J2405; J2920; J3475; Q0162; U0003; U0005

== ENCOUNTER 2020-12-12 18:46 | Inpatient (IN) | payer BC ==
[~2020-12-12 18:46] MED LIST changes: -Gadobenate Dimeglumine 529 MG/1 ML (20ML VIAL) ONE; +Iopamidol-370 76% 500 ML 1 ML ONE
[2020-12-12 19:32] LABS: Hemoglobin 9.8 g/dL (14.0-18.0); Mean Corpuscular Hemoglobin 28.8 pg (27.0-31.0); Mean Corpuscular Volume 87.4 fL (78.0-98.0); RBC Distribution Width 17.9 % (11.5-14.5); Red Blood Cell (RBC) Count 3.41 mill/uL (4.70-6.10); White Blood Cell (WBC) Count 6.6 thou/uL (4.8-10.8)
[2020-12-12 19:37] LABS: #Basophils 0.1 thou/uL (0.0-0.2); #Eosinphils 0.1 thou/uL (0.0-0.7); #Lymphocytes 1.8 thou/uL (1.20-3.40); #Monocytes 0.8 thou/uL (0.11-0.59); #Neutrophils 3.8 thou/uL (1.40-6.50); %Basophils 0.8 % (0.0-1.0); %Eosinophils 1.4 % (0.0-10.0); %Lymphocytes 27.6 % (21.0-51.0); %Monocytes 12.2 % (0.0-10.0); Mean Platelet Volume 11.9 fL (7.4-10.4); Platelet Count 71 thou/uL (130-400)
[2020-12-12 19:47] LABS: Anisocytosis SLIGHT = 6-15 cells (100X) (0-5/hpf); Large Platelets SLIGHT; MDiff Complete? YES; Platelet Morphology Comment Appears Decreased; Polychromasia SLIGHT = 2-3 cells (100X) (0-2/hpf)
[2020-12-12 19:48] LABS: ALT (SGPT) 40 U/L (8-55); AST (SGOT) 133 U/L (5-34); Albumin 3.5 g/dL (3.5-5.0); Alkaline Phosphatase 149 U/L (40-110); Anion Gap 16 mmol/L (10-20); BUN (Urea Nitrogen) 7 mg/dL (8.9-20.6); Bilirubin, Total 2.2 mg/dL (0.2-1.2); Calc. Creatinine Clearance 0 mL/min (70-130); Calcium 8.5 mg/dL (7.8-10.44); Carbon Dioxide 26 mmol/L (22-29); Chloride 100 mmol/L (98-107); Globulin 4.3 g/dL (2.4-3.5); Glucose 102 mg/dL (70-105); Potassium 3.6 mmol/L (3.5-5.1); Protein, Total 7.8 g/dL (6.0-8.3); Sodium 138 mmol/L (136-145)
[2020-12-12 20:13] LABS: Acetaminophen Less than 6.0 mcg/mL (10.0-30.0); Alcohol 303 mg/dL (Less than 10); Magnesium 2.1 mg/dL (1.6-2.6); Salicylate Less than 8.0 mg/dL (15.0-30.0)
[2020-12-12 20:23] LABS: Amphetamine Not Detected (NotDetected); Barbiturates Screen Detected (NotDetected); Benzodiazepine Screen Not Detected (NotDetected); Cocaine Metabolite Screen Not Detected (NotDetected); Medtox Control Line Valid? VALID (VALID); Medtox Reader # READER 1; Methadone Not Detected (NotDetected); Methamphetamine Not Detected (NotDetected); Opiate Screen Not Detected (NotDetected); Oxycodone Screen Not Detected (NotDetected); Phencyclidine (PCP) Not Detected (NotDetected); THC/Cannabinoid Screen Not Detected (NotDetected); Tricyclic Screen Not Detected (NotDetected)
[2020-12-12] MEDS ORDERED: Metoclopramide HCl 10 MG/2 ML VIAL ONE (20:24)
[2020-12-12] MEDS ORDERED: Ketorolac Tromethamine 30 MG/ML VIAL ONE (20:25)
[2020-12-12] MEDS ORDERED: diphenhydrAMINE 50 MG/ML VIAL ONE (20:26)
[2020-12-12] MEDS ORDERED: Lorazepam 2 MG/ML VIAL ONE (22:21)
[2020-12-13 01:41] LABS: Troponin I 0.025 ng/mL (< 0.028)
[2020-12-13] MEDS ORDERED: Ondansetron PF 4 MG/2 ML Vial IVP PRN (04:36)
[2020-12-13] MEDS ORDERED: Acetaminophen 325 MG TAB PO PRN (04:36)
[2020-12-13] MEDS ORDERED: Nitroglycerin 0.4 MG TAB (25 Tab Bottle) SL PRN (04:40)
[2020-12-13 06:02] LABS: Anion Gap 14 mmol/L (10-20); BUN (Urea Nitrogen) 7 mg/dL (8.9-20.6); Calc. Creatinine Clearance 172 mL/min (70-130); Calcium 7.9 mg/dL (7.8-10.44); Carbon Dioxide 27 mmol/L (22-29); Chloride 102 mmol/L (98-107); Glucose 83 mg/dL (70-105); Potassium 3.3 mmol/L (3.5-5.1); Sodium 140 mmol/L (136-145)
[2020-12-13 06:08] LABS: Troponin I Less than 0.010 ng/mL (< 0.028)
[2020-12-13 06:12] LABS: #Basophils 0.1 thou/uL (0.0-0.2); #Eosinphils 0.1 thou/uL (0.0-0.7); #Lymphocytes 1.5 thou/uL (1.20-3.40); #Monocytes 0.6 thou/uL (0.11-0.59); #Neutrophils 2.3 thou/uL (1.40-6.50); %Basophils 1.2 % (0.0-1.0); %Eosinophils 1.6 % (0.0-10.0); %Lymphocytes 33.3 % (21.0-51.0); %Monocytes 13.2 % (0.0-10.0); %Neutrophils 50.7 % (42.0-75.0); Hemoglobin 8.9 g/dL (14.0-18.0); Mean Corpuscular HGB CONC 32.2 g/dL (32.0-36.0); Mean Corpuscular Volume 87.2 fL (78.0-98.0); Mean Platelet Volume 6.9 fL (7.4-10.4); Platelet Count 61 thou/uL (130-400); RBC Distribution Width 17.9 % (11.5-14.5); Red Blood Cell (RBC) Count 3.19 mill/uL (4.70-6.10); White Blood Cell (WBC) Count 4.5 thou/uL (4.8-10.8)
[2020-12-13] MEDS ORDERED: Fioricet 325/50/40 mg Tablet PO PRN (06:14)
[2020-12-13] MEDS ORDERED: Potassium Chloride 20 MEQ TAB PO SCH (06:30)
[2020-12-13] MEDS: Carvedilol 6.25 MG TAB PO SCH ×2 (06:46→17:45)
[2020-12-13] MEDS ORDERED: Dextrose 5 %-0.45 % NaCl 1,000 ML IV SCH (07:15)
[2020-12-13] MEDS ORDERED: Amlodipine 10 MG TAB PO SCH (09:00)
[2020-12-13] MEDS: Furosemide 20 MG TAB PO SCH (09:35)
[2020-12-13] MEDS: Folic Acid 1 MG TAB PO SCH (09:35)
[2020-12-13] MEDS: Cyanocobalamin (Vitamin B-12) 1,000 MCG TAB PO SCH (09:35)
[2020-12-13] MEDS: Amlodipine 5 MG TAB PO SCH (09:35)
[2020-12-13 10:00] LABS: Bacteria/HPF None Seen HPF (None Seen); Bilirubin Negative (Negative); Blood, Urine Negative (Negative); Clarity Clear (Clear); Glucose, Urine (Dipstick) Normal (Negative); Ketone, Urine Negative (Negative); Leukocyte Negative Leu/uL (Negative); Nitrite Negative (Negative); Protein, Urine (Dipstick) 10 mg/dL (Neg-Trace); RBC/HPF 0-3 HPF (0-3); Squamous Epithelial None Seen HPF (0-3); WBC/HPF 0-3 HPF (0-3); pH, Urine 6.5 (5.0-9.0)
[2020-12-13 10:04] LABS: Specific Gravity, Urine 1.046 (1.002-1.036); Urine Culture Reflex No No
[2020-12-13] MEDS: Famotidine 20 MG TAB PO SCH ×2 (11:47→20:53)
[2020-12-13 19:03] LABS: SARS-CoV-2 NAA Rapid Test Not Detected (NotDetected)
[2020-12-13 20:54] LABS: Iron 25 ug/dL (65-175); Iron Binding Capacity, Total 393 mcg/dL (261-462)
[2020-12-13 21:13] LABS: Ferritin 37.71 ng/mL (22-322)
[2020-12-13 21:20] LABS: Vitamin B12 633 pg/mL (211-911)
[2020-12-13] MEDS ORDERED: Zolpidem Tartrate 5 MG TAB PO SCH (23:30)
[2020-12-14 02:04] LABS: HBSAg Index 0.21 S/CO (0-0.99); Hep B Surf Ag Non-Reactive S/CO (NonReactive); Hep C IgG Ab Non-Reactive (NonReactive); Hep C Index 0.16 S/CO (0-0.79)
[2020-12-14 02:06] LABS: Hep A IgM AB Non-Reactive (NonReactive)
[2020-12-14 02:07] LABS: Hep A IgM S/CO 0.15 S/CO (0-0.79)
[2020-12-14 02:08] LABS: Hepatitis B Core IgM Abs Non-Reactive (NonReactive)
[2020-12-14 05:53] LABS: Hemoglobin 9.2 g/dL (14.0-18.0); Mean Corpuscular HGB CONC 31.6 g/dL (32.0-36.0); Mean Corpuscular Hemoglobin 27.7 pg (27.0-31.0); Mean Corpuscular Volume 87.6 fL (78.0-98.0); Mean Platelet Volume 8.5 fL (7.4-10.4); Platelet Count 58 thou/uL (130-400); RBC Distribution Width 17.7 % (11.5-14.5); Red Blood Cell (RBC) Count 3.34 mill/uL (4.70-6.10); White Blood Cell (WBC) Count 5.1 thou/uL (4.8-10.8)
[2020-12-14 06:11] LABS: Anion Gap 11 mmol/L (10-20); BUN (Urea Nitrogen) 7 mg/dL (8.9-20.6); Calc. Creatinine Clearance 195 mL/min (70-130); Calcium 8.6 mg/dL (7.8-10.44); Carbon Dioxide 27 mmol/L (22-29); Chloride 102 mmol/L (98-107); Glucose 89 mg/dL (70-105); Magnesium 1.7 mg/dL (1.6-2.6); Potassium 3.3 mmol/L (3.5-5.1); Sodium 137 mmol/L (136-145)
[2020-12-14 06:13] LABS: Band 15 % (5-11); Eosinophils 3 % (0-10); Lymphocytes 24 % (21-51); MDiff Complete? YES; Monocytes 7 % (0-10); Neutrophil 51 % (42-75); Platelet Morphology Comment Appears Decreased
[2020-12-14] MEDS ORDERED: Propranolol 40 MG TAB PO SCH (09:00)
[2020-12-14] MEDS ORDERED: Enoxaparin Sodium 40 MG/0.4 ML SYRINGE SC SCH (09:00)
[2020-12-14] MEDS: Amlodipine 5 MG TAB PO SCH (09:32)
[2020-12-14] MEDS: Cyanocobalamin (Vitamin B-12) 1,000 MCG TAB PO SCH (09:32)
[2020-12-14] MEDS: Folic Acid 1 MG TAB PO SCH (09:34)
[2020-12-14] MEDS: Furosemide 20 MG TAB PO SCH (09:34)
[2020-12-14] MEDS: Famotidine 20 MG TAB PO SCH ×2 (09:45→20:58)
[2020-12-14 13:27] VITALS: BMI 40.6
[2020-12-14] MEDS ORDERED: Carvedilol 6.25 MG TAB PO SCH ×2 (17:15→21:00)
[2020-12-14] MEDS ORDERED: Potassium Chloride 20 MEQ TAB PO SCH (18:00)
[2020-12-14] MEDS: Propranolol 40 MG TAB PO SCH (21:03)
[2020-12-14] MEDS ORDERED: Zolpidem Tartrate 5 MG TAB PO PRN (21:36)
[2020-12-15 05:34] LABS: #Eosinphils 0.2 thou/uL (0.0-0.7); #Lymphocytes 1.4 thou/uL (1.20-3.40); #Monocytes 0.9 thou/uL (0.11-0.59); #Neutrophils 3.8 thou/uL (1.40-6.50); %Basophils 0.8 % (0.0-1.0); %Eosinophils 3.3 % (0.0-10.0); %Lymphocytes 22.2 % (21.0-51.0); %Monocytes 14.5 % (0.0-10.0); %Neutrophils 59.4 % (42.0-75.0); Hemoglobin 10.2 g/dL (14.0-18.0); Mean Corpuscular HGB CONC 31.8 g/dL (32.0-36.0); Mean Corpuscular Hemoglobin 27.9 pg (27.0-31.0); Mean Corpuscular Volume 87.8 fL (78.0-98.0); Mean Platelet Volume 7.7 fL (7.4-10.4); Platelet Count 61 thou/uL (130-400); RBC Distribution Width 17.5 % (11.5-14.5); Red Blood Cell (RBC) Count 3.66 mill/uL (4.70-6.10); White Blood Cell (WBC) Count 6.3 thou/uL (4.8-10.8)
[2020-12-15 06:04] LABS: Anion Gap 13 mmol/L (10-20); BUN (Urea Nitrogen) 7 mg/dL (8.9-20.6); Calc. Creatinine Clearance 196 mL/min (70-130); Calcium 8.7 mg/dL (7.8-10.44); Carbon Dioxide 26 mmol/L (22-29); Chloride 102 mmol/L (98-107); Glucose 86 mg/dL (70-105); Magnesium 1.7 mg/dL (1.6-2.6); Potassium 3.6 mmol/L (3.5-5.1); Sodium 137 mmol/L (136-145)
[2020-12-15] MEDS ORDERED: Spironolactone 25 MG TAB PO SCH (08:00)
[2020-12-15 08:25] VITALS: TEMP 98.1
[2020-12-15] MEDS: Famotidine 20 MG TAB PO SCH (10:00)
[2020-12-15] MEDS: Propranolol 40 MG TAB PO SCH (10:01)
[2020-12-15] MEDS: Furosemide 20 MG TAB PO SCH (10:01)
[2020-12-15] MEDS: Cyanocobalamin (Vitamin B-12) 1,000 MCG TAB PO SCH (10:01)
[2020-12-15] MEDS: Folic Acid 1 MG TAB PO SCH (10:01)
[2020-12-15] MEDS: Amlodipine 5 MG TAB PO SCH (10:01)
[2020-12-15] MEDS ORDERED: Potassium Chloride 20 MEQ TAB PO SCH (10:45)
[2020-12-15 11:41] VITALS: BP 118/58
[2020-12-15 12:12] LABS: ANA Symphony (Qualitative) Negative (Negative); ANA Symphony (Quantitative) 0.4 Ratio (< 0.7 Negative); EliA Vaculitis New Method **** NEW METHOD ****; Mitochondrial Ab 1.6 U/mL (<4 Negative)
[2020-12-16] MEDS ORDERED: Potassium Chloride 20 MEQ TAB PO SCH (08:00)
== END 2020-12-15 16:30 | disposition home or self-care (01) | DRG 896 ==
LOC: ERS 18:46 → 2SW 12-13 00:05 → OBSVTOIN 12-14 15:01
PROVIDERS: ADMIT Internal Medicine; ATTEND Internal Medicine
DX: F10.229 Alcohol dependence with intoxication, unspecified (principal); G92 Toxic encephalopathy; I50.32 Chronic diastolic (congestive) heart failure; Z68.41 Body mass index [BMI] 40.0-44.9, adult; I67.4 Hypertensive encephalopathy; D61.818 Other pancytopenia; K76.6 Portal hypertension; F10.239 Alcohol dependence with withdrawal, unspecified; Z20.822 Contact with and (suspected) exposure to COVID-19; K70.30 Alcoholic cirrhosis of liver without ascites; E66.01 Morbid (severe) obesity due to excess calories; I11.0 Hypertensive heart disease with heart failure; Y90.8 Blood alcohol level of 240 mg/100 ml or more; G25.2 Other specified forms of tremor; K21.9 Gastro-esophageal reflux disease without esophagitis; K70.10 Alcoholic hepatitis without ascites; D64.9 Anemia, unspecified; F41.9 Anxiety disorder, unspecified; R07.89 Other chest pain; E87.6 Hypokalemia; Z87.891 Personal history of nicotine dependence; Z79.899 Other long term (current) drug therapy
CPT/HCPCS: 36415; 70450; 70551; 71045; 71275; 74174; 76705; 80048; 80053; 80074; 80306; 80307; 81001; 82105; 82140; 82607; 82728; 82746; 83516; 83540; 83550; 83690; 83735; 83880; 84484; 85025; 86038; 86225; 93005; 94760; 96365; 96366; 96367; 96375; G0378; J1200; J1885; J2060; J2405; J2765; J3411; Q9967; U0002

== ENCOUNTER 2021-01-17 21:03 | Inpatient (IN) | payer BC ==
[2021-01-17 22:23] LABS: Hemoglobin 8.1 g/dL (14.0-18.0); Mean Corpuscular HGB CONC 33.5 g/dL (32.0-36.0); Mean Corpuscular Hemoglobin 29.6 pg (27.0-31.0); Mean Corpuscular Volume 88.3 fL (78.0-98.0); Mean Platelet Volume 9.8 fL (7.4-10.4); Platelet Count 188 thou/uL (130-400); Red Blood Cell (RBC) Count 2.75 mill/uL (4.70-6.10); White Blood Cell (WBC) Count 13.2 thou/uL (4.8-10.8)
[2021-01-17 22:43] LABS: ALT (SGPT) 38 U/L (8-55); AST (SGOT) 87 U/L (5-34); Albumin 3.6 g/dL (3.5-5.0); Alkaline Phosphatase 143 U/L (40-110); Anion Gap 19 mmol/L (10-20); BUN (Urea Nitrogen) 74 mg/dL (8.9-20.6); Bilirubin, Total 4.5 mg/dL (0.2-1.2); CK (CPK) 158 U/L (30-200); Calc. Creatinine Clearance 0 mL/min (70-130); Carbon Dioxide 19 mmol/L (22-29); Chloride 91 mmol/L (98-107); Globulin 4.2 g/dL (2.4-3.5); Glucose 128 mg/dL (70-105); Lipase 62 U/L (8-78); Protein, Total 7.8 g/dL (6.0-8.3); Sodium 123 mmol/L (136-145)
[2021-01-17 22:48] LABS: Band 6 % (5-11); Lymphocytes 10 % (21-51); MDiff Complete? YES; Monocytes 12 % (0-10); Neutrophil 72 % (42-75)
[2021-01-17] MEDS ORDERED: Furosemide 40 MG/4 ML VIAL SLOW IVP SCH (23:45)
[2021-01-18] MEDS ORDERED: Albuterol Sulfate 1.25 MG/3 ML NEB ONE ×2 (00:32→00:33)
[2021-01-18] MEDS ORDERED: Activated Charcoal/Sorbitol 25 GM/120 ML TUBE ONE (00:34)
[2021-01-18] MEDS ORDERED: Dextrose 50% Abboject 50 ML SYRINGE ONE (00:34)
[2021-01-18] MEDS ORDERED: Calcium Chloride 1 GM/10 ML Abboject SYRINGE ONE (00:35)
[2021-01-18] MEDS ORDERED: Sodium Bicarb 50 MEQ/50 ML Abboject 8.4% SYRINGE ONE (00:36)
[2021-01-18] MEDS ORDERED: Insulin Regular 300 UNITS/3 ML VIAL ONE ×2 (00:36→06:36)
[2021-01-18] MEDS ORDERED: Furosemide 40 MG/4 ML VIAL ONE (00:38)
[2021-01-18] MEDS ORDERED: Albuterol Sulfate 2.5 mg/3 ml Neb ONE (01:20)
[2021-01-18] MEDS ORDERED: Albuterol Sulfate 2.5 mg/0.5 ml Neb ONE ×2 (01:20)
[2021-01-18 02:06] LABS: Troponin I Less than 0.010 ng/mL (< 0.028)
[2021-01-18] MEDS ORDERED: Acetaminophen 325 MG TAB PO PRN ×2 (03:30→10:08)
[2021-01-18] MEDS ORDERED: Ondansetron ODT 4 MG TAB SL PRN (03:30)
[2021-01-18] MEDS ORDERED: Ondansetron PF 4 MG/2 ML Vial IVP PRN ×2 (03:30→10:08)
[2021-01-18 04:03] LABS: Bacteria/HPF 1+ HPF (None Seen); Bilirubin Negative (Negative); Blood, Urine Negative (Negative); Clarity Turbid (Clear); Glucose, Urine (Dipstick) Normal (Negative); Ketone, Urine Negative (Negative); Leukocyte Negative Leu/uL (Negative); Nitrite Negative (Negative); Protein, Urine (Dipstick) 200 mg/dL (Neg-Trace); Specific Gravity, Urine 1.016 (1.002-1.036); Squamous Epithelial 0-3 HPF (0-3); Urobilinogen Normal mg/dL (Less than 2)
[2021-01-18 04:12] VITALS: BMI 44.9
[2021-01-18 04:56] LABS: Albumin 3.4 g/dL (3.5-5.0); Anion Gap 18 mmol/L (10-20); BUN (Urea Nitrogen) 74 mg/dL (8.9-20.6); BUN/Creatinine Ratio 15.58; Calc. Creatinine Clearance 40 mL/min (70-130); Calcium 9.8 mg/dL (7.8-10.44); Carbon Dioxide 21 mmol/L (22-29); Chloride 91 mmol/L (98-107); Glucose 118 mg/dL (70-105); Phosphorus 6.2 mg/dL (2.3-4.7); Sodium 124 mmol/L (136-145)
[2021-01-18 05:05] LABS: Troponin I Less than 0.010 ng/mL (< 0.028)
[2021-01-18] MEDS ORDERED: Calcium Gluc 4.6 MEQ/10 ML (100 MG/ML) SLOW IVP SCH (05:52)
[2021-01-18] MEDS ORDERED: Dextrose 50% Abboject 50 ML SYRINGE SLOW IVP SCH (06:00)
[2021-01-18] MEDS ORDERED: Insulin Regular 300 UNITS/3 ML VIAL IVP SCH (06:00)
[2021-01-18] MEDS ORDERED: Furosemide 40 MG/4 ML VIAL SLOW IVP SCH (09:15)
[2021-01-18] MEDS ORDERED: hydrALAZINE 20 MG/ML VIAL SLOW IVP PRN (10:08)
[2021-01-18] MEDS ORDERED: Ondansetron ODT 4 MG TAB PO PRN (10:08)
[2021-01-18] MEDS ORDERED: cloNIDine 0.1 MG TAB PO PRN (10:08)
[2021-01-18 10:59] LABS: INR-International Normal Ratio 1.3; Prothrombin Time 16.1 sec (12.0-14.7)
[2021-01-18 11:47] LABS: SARS-CoV-2 PCR by NAA Not Detected (NotDetected)
[2021-01-18 13:34] LABS: Anion Gap 17 mmol/L (10-20); BUN (Urea Nitrogen) 74 mg/dL (8.9-20.6); Calc. Creatinine Clearance 42 mL/min (70-130); Calcium 9.8 mg/dL (7.8-10.44); Carbon Dioxide 24 mmol/L (22-29); Chloride 92 mmol/L (98-107); Glucose 111 mg/dL (70-105); Potassium 4.7 mmol/L (3.5-5.1); Sodium 128 mmol/L (136-145)
[2021-01-18] MEDS: Furosemide 40 MG/4 ML VIAL SLOW IVP SCH (14:58)
[2021-01-18] MEDS: HYDROcodone/Acetaminophen 5/325 mg Tablet PO PRN (18:54)
[2021-01-19 05:19] LABS: Hemoglobin 7.4 g/dL (14.0-18.0); Mean Corpuscular HGB CONC 32.3 g/dL (32.0-36.0); Mean Corpuscular Hemoglobin 28.8 pg (27.0-31.0); Mean Corpuscular Volume 89.3 fL (78.0-98.0); Mean Platelet Volume 9.1 fL (7.4-10.4); Platelet Count 164 thou/uL (130-400); RBC Distribution Width 19.1 % (11.5-14.5); Red Blood Cell (RBC) Count 2.56 mill/uL (4.70-6.10); White Blood Cell (WBC) Count 7.7 thou/uL (4.8-10.8)
[2021-01-19 05:24] LABS: INR-International Normal Ratio 1.4; Prothrombin Time 16.8 sec (12.0-14.7)
[2021-01-19 05:31] LABS: Albumin 3.2 g/dL (3.5-5.0); Anion Gap 13 mmol/L (10-20); BUN (Urea Nitrogen) 67 mg/dL (8.9-20.6); BUN/Creatinine Ratio 20.87; Calc. Creatinine Clearance 59 mL/min (70-130); Calcium 9.4 mg/dL (7.8-10.44); Carbon Dioxide 26 mmol/L (22-29); Chloride 93 mmol/L (98-107); Glucose 105 mg/dL (70-105); Phosphorus 5.8 mg/dL (2.3-4.7); Potassium 3.7 mmol/L (3.5-5.1); Sodium 128 mmol/L (136-145)
[2021-01-19] MEDS: Furosemide 40 MG/4 ML VIAL SLOW IVP SCH ×2 (05:33→14:03)
[2021-01-19] MEDS: HYDROcodone/Acetaminophen 5/325 mg Tablet PO PRN ×2 (05:33→22:04)
[2021-01-19 05:57] LABS: Band 10 % (5-11); Eosinophils 3 % (0-10); Lymphocytes 14 % (21-51); MDiff Complete? YES; Monocytes 8 % (0-10); Neutrophil 65 % (42-75)
[2021-01-19 08:53] LABS: Iron 57 ug/dL (65-175); Iron Binding Capacity, Total 381 mcg/dL (261-462)
[2021-01-19] MEDS: Amlodipine 10 MG TAB PO SCH (09:40)
[2021-01-19] MEDS: Phenazopyridine HCl 100 MG TAB PO SCH ×3 (09:40→17:36)
[2021-01-19] MEDS ORDERED: Melatonin 3 MG TAB PO PRN (22:10)
[2021-01-19] MEDS ORDERED: traMADol HCl 50 MG TAB PO PRN (22:10)
[2021-01-20 05:18] LABS: Albumin 3.2 g/dL (3.5-5.0); Anion Gap 15 mmol/L (10-20); BUN (Urea Nitrogen) 39 mg/dL (8.9-20.6); BUN/Creatinine Ratio 22.41; Calc. Creatinine Clearance 106 mL/min (70-130); Calcium 9.2 mg/dL (7.8-10.44); Carbon Dioxide 26 mmol/L (22-29); Chloride 96 mmol/L (98-107); Glucose 105 mg/dL (70-105); Phosphorus 4.4 mg/dL (2.3-4.7); Potassium 3.2 mmol/L (3.5-5.1); Sodium 134 mmol/L (136-145)
[2021-01-20] MEDS ORDERED: Potassium Chloride 20 MEQ TAB PO SCH (06:00)
[2021-01-20] MEDS: Furosemide 40 MG/4 ML VIAL SLOW IVP SCH ×2 (06:25→14:26)
[2021-01-20 08:39] LABS: Hemoglobin 8.3 g/dL (14.0-18.0); Mean Corpuscular HGB CONC 31.8 g/dL (32.0-36.0); Mean Corpuscular Hemoglobin 28.5 pg (27.0-31.0); Mean Corpuscular Volume 89.6 fL (78.0-98.0); Mean Platelet Volume 8.4 fL (7.4-10.4); Platelet Count 165 thou/uL (130-400); White Blood Cell (WBC) Count 6.9 thou/uL (4.8-10.8)
[2021-01-20] MEDS: Phenazopyridine HCl 100 MG TAB PO SCH ×3 (09:04→17:43)
[2021-01-20] MEDS: HYDROcodone/Acetaminophen 5/325 mg Tablet PO PRN (09:04)
[2021-01-20] MEDS: Amlodipine 10 MG TAB PO SCH (09:05)
[2021-01-20] MEDS: Pantoprazole 40 MG VIAL IVP SCH ×2 (09:10→20:28)
[2021-01-20 09:44] LABS: Band 2 % (5-11); Eosinophils 1 % (0-10); Lymphocytes 22 % (21-51); MDiff Complete? YES; Monocytes 11 % (0-10); Myelocyte 1 % (0-0); Neutrophil 61 % (42-75); Platelet Morphology Comment Appears Adequate; Polychromasia SLIGHT = 2-3 cells (100X) (0-2/hpf)
[2021-01-20] MEDS ORDERED: GoLYTELY 4,000 ml Bottle PO SCH (17:00)
[2021-01-21 05:23] LABS: Anion Gap 12 mmol/L (10-20); BUN (Urea Nitrogen) 19 mg/dL (8.9-20.6); Calc. Creatinine Clearance 138 mL/min (70-130); Carbon Dioxide 31 mmol/L (22-29); Chloride 97 mmol/L (98-107); Potassium 3.2 mmol/L (3.5-5.1); Sodium 137 mmol/L (136-145)
[2021-01-21 05:24] LABS: Albumin 3.1 g/dL (3.5-5.0); BUN/Creatinine Ratio 14.84; Calcium 8.9 mg/dL (7.8-10.44); Glucose 100 mg/dL (70-105); Phosphorus 2.1 mg/dL (2.3-4.7)
[2021-01-21] MEDS ORDERED: Potassium Chloride 20 MEQ TAB PO SCH (06:30)
[2021-01-21] MEDS: Furosemide 40 MG/4 ML VIAL SLOW IVP SCH (06:46)
[2021-01-21] MEDS: Amlodipine 10 MG TAB PO SCH (08:45)
[2021-01-21] MEDS: Pantoprazole 40 MG VIAL IVP SCH (08:45)
[2021-01-21] MEDS: Phenazopyridine HCl 100 MG TAB PO SCH ×3 (08:45→15:34)
[2021-01-21] MEDS ORDERED: Furosemide 20 MG TAB PO SCH (09:00)
[2021-01-21] MEDS: Furosemide 40 MG TAB PO SCH ×2 (10:00→15:35)
[2021-01-21] MEDS ORDERED: PROPOFOL 200 MG/20 ML VIAL ONE (13:10)
[2021-01-21] MEDS ORDERED: Lidocaine 1% PF 5 ML VIAL ONE (13:10)
[2021-01-21] MEDS ORDERED: Promethazine HCl 25 MG/ML VIAL IM PRN (14:01)
[2021-01-21] MEDS ORDERED: Promethazine HCl 25 MG/ML VIAL SLOW IVP PRN (14:01)
[2021-01-21] MEDS ORDERED: Ondansetron HCl/PF 4 MG/2 ML Vial IVP PRN (14:01)
[2021-01-21 17:12] VITALS: BP 145/63; TEMP 98.5
== END 2021-01-21 18:55 | disposition home or self-care (01) | DRG 291 ==
LOC: ERS 21:03 → 2NO 01-18 00:36
PROVIDERS: ADMIT Internal Medicine; ATTEND Student in an Organized Health Care Education/Training Program
PROC: 0DJ08ZZ Inspection of Upper Intestinal Tract, Via Natural or Artificial Opening Endoscopic (ICD-10-PCS; principal; 2021-01-21)
PROC: 0DJD8ZZ Inspection of Lower Intestinal Tract, Via Natural or Artificial Opening Endoscopic (ICD-10-PCS; 2021-01-21)
DX: I13.0 Hypertensive heart and chronic kidney disease with heart failure and stage 1 through stage 4 chronic kidney disease, or unspecified chronic kidney disease (principal); I50.33 Acute on chronic diastolic (congestive) heart failure; N17.9 Acute kidney failure, unspecified; Z20.822 Contact with and (suspected) exposure to COVID-19; E87.1 Hypo-osmolality and hyponatremia; E87.2 Acidosis; K92.2 Gastrointestinal hemorrhage, unspecified; I85.00 Esophageal varices without bleeding; E78.5 Hyperlipidemia, unspecified; E78.00 Pure hypercholesterolemia, unspecified; Z96.649 Presence of unspecified artificial hip joint; E87.5 Hyperkalemia; D63.1 Anemia in chronic kidney disease; N18.9 Chronic kidney disease, unspecified; E66.01 Morbid (severe) obesity due to excess calories; K74.60 Unspecified cirrhosis of liver; E83.39 Other disorders of phosphorus metabolism; K72.90 Hepatic failure, unspecified without coma; I25.10 Atherosclerotic heart disease of native coronary artery without angina pectoris; K21.9 Gastro-esophageal reflux disease without esophagitis; F10.10 Alcohol abuse, uncomplicated; R04.0 Epistaxis; Z68.41 Body mass index [BMI] 40.0-44.9, adult; Z87.891 Personal history of nicotine dependence; Z88.8 Allergy status to other drugs, medicaments and biological substances; Z79.899 Other long term (current) drug therapy
CPT/HCPCS: 36415; 36416; 51702; 71045; 76770; 80053; 80069; 80307; 81003; 81015; 82140; 82274; 82550; 82728; 83540; 83550; 83690; 83880; 83935; 84300; 84484; 85025; 85610; 93005; 96374; 96375; C9113; J1815; J1940; J2001; J2704; J7611; U0003; U0005

== ENCOUNTER 2021-04-19 11:16 | Emergency (ER) | payer BC ==
[2021-04-19] MEDS ORDERED: Iopamidol-370 76% 500 ML 1 ML ONE (11:47)
[2021-04-19 12:19] LABS: #Eosinphils 0.2 thou/uL (0.0-0.7); #Lymphocytes 1.5 thou/uL (1.20-3.40); #Neutrophils 4.4 thou/uL (1.40-6.50); %Basophils 0.6 % (0.0-1.0); %Eosinophils 2.9 % (0.0-10.0); %Lymphocytes 21.5 % (21.0-51.0); %Monocytes 13.7 % (0.0-10.0); %Neutrophils 61.4 % (42.0-75.0); Hemoglobin 10.1 g/dL (14.0-18.0); Mean Corpuscular HGB CONC 33.4 g/dL (32.0-36.0); Mean Corpuscular Hemoglobin 30.8 pg (27.0-31.0); Mean Corpuscular Volume 92.3 fL (78.0-98.0); Mean Platelet Volume 8.7 fL (7.4-10.4); Platelet Count 122 thou/uL (130-400); RBC Distribution Width 14.7 % (11.5-14.5); Red Blood Cell (RBC) Count 3.29 mill/uL (4.70-6.10); White Blood Cell (WBC) Count 7.2 thou/uL (4.8-10.8)
[2021-04-19 12:45] LABS: ALT (SGPT) 22 U/L (8-55); AST (SGOT) 54 U/L (5-34); Albumin 3.4 g/dL (3.5-5.0); Alkaline Phosphatase 131 U/L (40-110); Anion Gap 14 mmol/L (10-20); BUN (Urea Nitrogen) 13 mg/dL (8.9-20.6); Bilirubin, Total 4.1 mg/dL (0.2-1.2); Calc. Creatinine Clearance 0 mL/min (70-130); Calcium 8.9 mg/dL (7.8-10.44); Carbon Dioxide 25 mmol/L (22-29); Chloride 99 mmol/L (98-107); Globulin 3.9 g/dL (2.4-3.5); Glucose 96 mg/dL (70-105); Potassium 3.6 mmol/L (3.5-5.1); Protein, Total 7.3 g/dL (6.0-8.3); Sodium 134 mmol/L (136-145)
[2021-04-19] MEDS ORDERED: Magnesium 2 GM/50 ML BAG (IN WATER) ONE (12:51)
[2021-04-19] MEDS ORDERED: Ondansetron PF 4 MG/2 ML Vial ONE (12:51)
[2021-04-19 13:23] LABS: Lipase 49 U/L (8-78)
[2021-04-19 13:23] LABS: INR-International Normal Ratio 1.3; PTT 46.5 sec (22.9-36.1); Prothrombin Time 16.6 sec (12.0-14.7)
[2021-04-19] MEDS ORDERED: Fentanyl 100 MCG/2 ML VIAL ONE (13:49)
[2021-04-19] MEDS ORDERED: cefTRIAXone\\ROCEPHIN 2 GM VIAL ONE (15:54)
[2021-04-19] MEDS ORDERED: Promethazine HCl 25 MG/ML VIAL ONE (15:54)
[2021-04-19] MEDS ORDERED: Furosemide 20 MG/2 ML VIAL ONE (15:54)
== END 2021-04-19 17:26 | disposition home or self-care (01) ==
LOC: ERS 11:16
DX: L03.115 Cellulitis of right lower limb (principal); I11.0 Hypertensive heart disease with heart failure; I50.9 Heart failure, unspecified; Z79.899 Other long term (current) drug therapy; E78.5 Hyperlipidemia, unspecified; E78.00 Pure hypercholesterolemia, unspecified; Z87.891 Personal history of nicotine dependence
CPT/HCPCS: 36415; 71045; 74177; 80053; 83605; 83690; 83735; 83880; 84484; 85025; 85610; 85730; 87040; 93005; 96365; 96367; 96375; J0696; J1940; J2405; J2550; J3010; J3475; Q9967

== ENCOUNTER 2021-04-23 16:32 | Inpatient (IN) | payer BC ==
[2021-04-23] MEDS ORDERED: Cefepime 2 GM VIAL ONE (17:19)
[2021-04-23 17:23] LABS: #Basophils 0.1 thou/uL (0.0-0.2); #Eosinphils 0.3 thou/uL (0.0-0.7); #Lymphocytes 1.6 thou/uL (1.20-3.40); #Monocytes 0.7 thou/uL (0.11-0.59); #Neutrophils 4.4 thou/uL (1.40-6.50); %Basophils 0.8 % (0.0-1.0); %Eosinophils 4.3 % (0.0-10.0); %Lymphocytes 22.7 % (21.0-51.0); %Monocytes 10.4 % (0.0-10.0); %Neutrophils 61.9 % (42.0-75.0); Hemoglobin 10.7 g/dL (14.0-18.0); Mean Corpuscular HGB CONC 31.8 g/dL (32.0-36.0); Mean Corpuscular Hemoglobin 30.1 pg (27.0-31.0); Mean Corpuscular Volume 94.8 fL (78.0-98.0); Platelet Count 139 thou/uL (130-400); RBC Distribution Width 14.8 % (11.5-14.5); Red Blood Cell (RBC) Count 3.55 mill/uL (4.70-6.10); White Blood Cell (WBC) Count 7.2 thou/uL (4.8-10.8)
[2021-04-23 17:44] LABS: ALT (SGPT) 24 U/L (8-55); AST (SGOT) 72 U/L (5-34); Albumin 3.5 g/dL (3.5-5.0); Alkaline Phosphatase 181 U/L (40-110); Anion Gap 11 mmol/L (10-20); BUN (Urea Nitrogen) 12 mg/dL (8.9-20.6); Calc. Creatinine Clearance 0 mL/min (70-130); Calcium 8.9 mg/dL (7.8-10.44); Carbon Dioxide 29 mmol/L (22-29); Chloride 100 mmol/L (98-107); Globulin 4.2 g/dL (2.4-3.5); Glucose 116 mg/dL (70-105); Potassium 3.4 mmol/L (3.5-5.1); Protein, Total 7.7 g/dL (6.0-8.3); Sodium 137 mmol/L (136-145)
[2021-04-23] MEDS ORDERED: Vancomycin 1 GM/200 ML BAG ONE (17:50)
[2021-04-23 17:59] LABS: Bacteria/HPF None Seen HPF (None Seen); Bilirubin Negative (Negative); Blood, Urine Negative (Negative); Clarity Clear (Clear); Glucose, Urine (Dipstick) Normal (Negative); Ketone, Urine Negative (Negative); Leukocyte Negative Leu/uL (Negative); Nitrite Negative (Negative); Protein, Urine (Dipstick) Negative (Neg-Trace); RBC/HPF 0-3 HPF (0-3); Specific Gravity, Urine 1.014 (1.002-1.036); Squamous Epithelial None Seen HPF (0-3); Urobilinogen Normal mg/dL (Less than 2); WBC/HPF 0-3 HPF (0-3)
[2021-04-23] MEDS ORDERED: Ondansetron ODT 4 MG TAB PO PRN (19:50)
[2021-04-23] MEDS ORDERED: Potassium Chloride 20 MEQ TAB PO SCH (20:30)
[2021-04-23] MEDS ORDERED: Propranolol 40 MG TAB PO SCH (21:00)
[2021-04-23] MEDS: ceFAZolin Sodium/D5W 2 GM in Premix Bag 1 BAG IVPB SCH (22:17)
[2021-04-23 22:29] VITALS: BMI 37.2
[2021-04-24] MEDS: ceFAZolin Sodium/D5W 2 GM in Premix Bag 1 BAG IVPB SCH ×3 (04:42→21:19)
[2021-04-24] MEDS ORDERED: Prevnar 13-Val Conj/PF 0.5 ML SYRINGE IM ONE (09:00)
[2021-04-24] MEDS: Spironolactone 25 MG TAB PO SCH (09:37)
[2021-04-24] MEDS: Potassium Chloride 10 MEQ TAB PO SCH (09:38)
[2021-04-24 18:39] LABS: SARS-CoV-2 PCR by NAA Not Detected (NotDetected)
[2021-04-24] MEDS ORDERED: HYDROcodone/Acetaminophen 5/325 mg Tablet PO SCH (19:45)
[2021-04-24] MEDS ORDERED: Ondansetron ODT 4 MG TAB PO PRN (20:32)
[2021-04-25] MEDS: ceFAZolin Sodium/D5W 2 GM in Premix Bag 1 BAG IVPB SCH (05:04)
[2021-04-25 08:16] VITALS: BP 115/65; TEMP 97.9
[2021-04-25] MEDS: Spironolactone 25 MG TAB PO SCH (08:42)
[2021-04-25] MEDS: Potassium Chloride 10 MEQ TAB PO SCH (08:42)
== END 2021-04-25 11:06 | disposition home or self-care (01) | DRG 871 ==
LOC: ERS 16:32 → SJJU 18:29
PROVIDERS: ADMIT Internal Medicine; ATTEND Internal Medicine
DX: A41.1 Sepsis due to other specified staphylococcus (principal); I50.33 Acute on chronic diastolic (congestive) heart failure; N17.9 Acute kidney failure, unspecified; L03.115 Cellulitis of right lower limb; Z20.822 Contact with and (suspected) exposure to COVID-19; K74.60 Unspecified cirrhosis of liver; K21.9 Gastro-esophageal reflux disease without esophagitis; E87.6 Hypokalemia; R73.9 Hyperglycemia, unspecified; R19.5 Other fecal abnormalities; K72.90 Hepatic failure, unspecified without coma; E78.5 Hyperlipidemia, unspecified; E78.00 Pure hypercholesterolemia, unspecified; I11.0 Hypertensive heart disease with heart failure; Z96.649 Presence of unspecified artificial hip joint; F41.9 Anxiety disorder, unspecified; D64.9 Anemia, unspecified; Z79.891 Long term (current) use of opiate analgesic; Z79.899 Other long term (current) drug therapy; Z87.891 Personal history of nicotine dependence; Z88.8 Allergy status to other drugs, medicaments and biological substances
CPT/HCPCS: 71045; 80053; 81001; 83605; 83880; 84484; 85025; 87040; 93005; 93306; 96365; 96366; 96368; J0692; J3370; Q0162; U0003; U0005

== ENCOUNTER 2021-05-03 09:00 | Emergency (ER) | payer BC ==
[2021-05-03] MEDS ORDERED: Ketorolac Tromethamine 30 MG/ML VIAL ONE (09:38)
[2021-05-03] MEDS ORDERED: Ondansetron PF 4 MG/2 ML Vial ONE (09:38)
[2021-05-03 10:14] LABS: #Basophils 0.1 thou/uL (0.0-0.2); #Eosinphils 0.3 thou/uL (0.0-0.7); #Lymphocytes 1.7 thou/uL (1.20-3.40); #Monocytes 0.9 thou/uL (0.11-0.59); #Neutrophils 3.9 thou/uL (1.40-6.50); %Basophils 0.7 % (0.0-1.0); %Eosinophils 3.9 % (0.0-10.0); %Lymphocytes 25.2 % (21.0-51.0); %Monocytes 13.4 % (0.0-10.0); %Neutrophils 56.8 % (42.0-75.0); Hemoglobin 11.7 g/dL (14.0-18.0); Mean Corpuscular HGB CONC 32.1 g/dL (32.0-36.0); Mean Corpuscular Hemoglobin 29.7 pg (27.0-31.0); Mean Corpuscular Volume 92.5 fL (78.0-98.0); Mean Platelet Volume 8.8 fL (7.4-10.4); Platelet Count 151 thou/uL (130-400); Red Blood Cell (RBC) Count 3.94 mill/uL (4.70-6.10); White Blood Cell (WBC) Count 6.9 thou/uL (4.8-10.8)
[2021-05-03 10:39] LABS: ALT (SGPT) 18 U/L (8-55); AST (SGOT) 61 U/L (5-34); Albumin 3.5 g/dL (3.5-5.0); Alkaline Phosphatase 214 U/L (40-110); Anion Gap 13 mmol/L (10-20); BUN (Urea Nitrogen) 14 mg/dL (8.9-20.6); Bilirubin, Total 3.2 mg/dL (0.2-1.2); Calc. Creatinine Clearance 0 mL/min (70-130); Calcium 9.5 mg/dL (7.8-10.44); Carbon Dioxide 27 mmol/L (22-29); Chloride 102 mmol/L (98-107); Globulin 4.5 g/dL (2.4-3.5); Glucose 63 mg/dL (70-105); Sodium 138 mmol/L (136-145)
[2021-05-03 18:30] LABS: SARS-CoV-2 PCR by NAA Not Detected (NotDetected)
== END 2021-05-03 12:08 | disposition home or self-care (01) ==
LOC: ERS 09:00
DX: R53.81 Other malaise (principal); R06.00 Dyspnea, unspecified; Z20.822 Contact with and (suspected) exposure to COVID-19; Z79.899 Other long term (current) drug therapy; I11.0 Hypertensive heart disease with heart failure; I50.9 Heart failure, unspecified; E78.5 Hyperlipidemia, unspecified; E78.00 Pure hypercholesterolemia, unspecified; Z87.891 Personal history of nicotine dependence
CPT/HCPCS: 71045; 80053; 82140; 83880; 84484; 85025; 87040; 93005; 96374; 96375; J1885; J2405; U0003; U0005

== ENCOUNTER 2021-05-05 11:12 | Outpatient (CLI) | payer BC | END 2021-05-05 11:13 | disposition home or self-care (01) | LOC: NM 11:12 | PROVIDERS: ATTEND Family Medicine | DX: T84.51XD Infection and inflammatory reaction due to internal right hip prosthesis, subsequent encounter (principal); R78.81 Bacteremia; M47.814 Spondylosis without myelopathy or radiculopathy, thoracic region; M19.012 Primary osteoarthritis, left shoulder; M19.011 Primary osteoarthritis, right shoulder | CPT/HCPCS: 78315; A9503 ==

== ENCOUNTER 2021-07-19 17:08 | Inpatient (IN) | payer BC ==
[2021-07-19 18:27] LABS: #Basophils 0.1 thou/uL (0.0-0.2); #Eosinphils 0.3 thou/uL (0.0-0.7); #Lymphocytes 2.3 thou/uL (1.20-3.40); #Monocytes 0.8 thou/uL (0.11-0.59); #Neutrophils 4.9 thou/uL (1.40-6.50); %Basophils 0.7 % (0.0-1.0); %Eosinophils 3.6 % (0.0-10.0); %Lymphocytes 27.2 % (21.0-51.0); %Monocytes 9.8 % (0.0-10.0); %Neutrophils 58.7 % (42.0-75.0); Mean Corpuscular HGB CONC 34.6 g/dL (32.0-36.0); Mean Corpuscular Hemoglobin 33.1 pg (27.0-31.0); Mean Corpuscular Volume 95.8 fL (78.0-98.0); Mean Platelet Volume 8.3 fL (7.4-10.4); Platelet Count 129 thou/uL (130-400); RBC Distribution Width 15.9 % (11.5-14.5); Red Blood Cell (RBC) Count 3.33 mill/uL (4.70-6.10); White Blood Cell (WBC) Count 8.3 thou/uL (4.8-10.8)
[2021-07-19 18:44] LABS: ALT (SGPT) 28 U/L (8-55); AST (SGOT) 71 U/L (5-34); Albumin 3.5 g/dL (3.5-5.0); Alkaline Phosphatase 144 U/L (40-110); Anion Gap 15 mmol/L (10-20); BUN (Urea Nitrogen) 27 mg/dL (8.4-25.7); Bilirubin, Total 4.5 mg/dL (0.2-1.2); Calc. Creatinine Clearance 0 mL/min (70-130); Calcium 9.9 mg/dL (7.8-10.44); Carbon Dioxide 24 mmol/L (22-29); Chloride 97 mmol/L (98-107); Globulin 3.8 g/dL (2.4-3.5); Glucose 114 mg/dL (70-105); Protein, Total 7.3 g/dL (6.0-8.3); Sodium 132 mmol/L (136-145)
[2021-07-19 19:59] LABS: INR-International Normal Ratio 1.3; Prothrombin Time 16.5 sec (12.0-14.7)
[2021-07-19] MEDS ORDERED: Sodium Chloride 0.9% 1,000 ML IV SCH (21:00)
[2021-07-19] MEDS ORDERED: Acetaminophen 650 MG Suppository PR PRN (22:26)
[2021-07-19] MEDS ORDERED: Ondansetron PF 4 MG/2 ML Vial IVP PRN (22:26)
[2021-07-19] MEDS ORDERED: Ondansetron ODT 4 MG TAB PO PRN ×2 (22:26→22:55)
[2021-07-19 22:28] VITALS: BMI 36.3
[2021-07-19 22:35] LABS: Bacteria/HPF None Seen HPF (None Seen); Bilirubin Negative (Negative); Blood, Urine Negative (Negative); Clarity Clear (Clear); Glucose, Urine (Dipstick) Normal (Negative); Ketone, Urine Negative (Negative); Leukocyte Negative Leu/uL (Negative); Nitrite Negative (Negative); Protein, Urine (Dipstick) Negative (Neg-Trace); RBC/HPF 0-3 HPF (0-3); Specific Gravity, Urine 1.012 (1.002-1.036); Squamous Epithelial 0-3 HPF (0-3); Urobilinogen Normal mg/dL (Less than 2); WBC/HPF 0-3 HPF (0-3); pH, Urine 5.5 (5.0-9.0)
[2021-07-19 23:02] LABS: Creatinine, Urine 123.73 mg/dL (63-166)
[2021-07-19] MEDS: cefTRIAXone\\ROCEPHIN 1 GM in Sodium Chloride 0.9% 100 ML IVPB SCH (23:31)
[2021-07-19] MEDS: Sodium Chloride 0.9% 1,000 ML IV SCH (23:31)
[2021-07-20 05:22] LABS: #Basophils 0.1 thou/uL (0.0-0.2); #Eosinphils 0.3 thou/uL (0.0-0.7); #Lymphocytes 2.1 thou/uL (1.20-3.40); #Monocytes 0.7 thou/uL (0.11-0.59); %Basophils 0.9 % (0.0-1.0); %Lymphocytes 33.8 % (21.0-51.0); %Monocytes 11.9 % (0.0-10.0); %Neutrophils 48.5 % (42.0-75.0); Hemoglobin 11.1 g/dL (14.0-18.0); Mean Corpuscular HGB CONC 32.8 g/dL (32.0-36.0); Mean Corpuscular Hemoglobin 32.5 pg (27.0-31.0); Mean Corpuscular Volume 99.2 fL (78.0-98.0); Mean Platelet Volume 8.4 fL (7.4-10.4); Platelet Count 116 thou/uL (130-400); RBC Distribution Width 15.9 % (11.5-14.5); Red Blood Cell (RBC) Count 3.41 mill/uL (4.70-6.10); White Blood Cell (WBC) Count 6.1 thou/uL (4.8-10.8)
[2021-07-20 05:24] LABS: Anion Gap 10 mmol/L (10-20); BUN (Urea Nitrogen) 22 mg/dL (8.4-25.7); Calc. Creatinine Clearance 73 mL/min (70-130); Calcium 9.5 mg/dL (7.8-10.44); Carbon Dioxide 26 mmol/L (22-29); Chloride 105 mmol/L (98-107); Glucose 90 mg/dL (70-105); Potassium 4.2 mmol/L (3.5-5.1); Sodium 137 mmol/L (136-145)
[2021-07-20 05:27] LABS: Troponin I Less than 0.010 ng/mL (< 0.028)
[2021-07-20 06:31] LABS: Magnesium 2.1 mg/dL (1.6-2.6)
[2021-07-20] MEDS ORDERED: Enoxaparin Sodium 30 MG/0.3 ML SYRINGE SC SCH (09:00)
[2021-07-20] MEDS ORDERED: FLU VACC QS2021-22(6MOS UP)/PF 60 MCG/0.5 ML SYRINGE IM ONE (09:00)
[2021-07-20] MEDS ORDERED: Prevnar 13-Val Conj/PF 0.5 ML SYRINGE IM ONE (09:00)
[2021-07-20] MEDS ORDERED: Amlodipine 10 MG TAB PO SCH (09:00)
[2021-07-20] MEDS ORDERED: Ondansetron ODT 4 MG TAB PO PRN (10:00)
[2021-07-20 10:49] LABS: SARS-CoV-2 PCR by NAA Not Detected (NotDetected)
[2021-07-20] MEDS: Propranolol 40 MG TAB PO SCH (11:11)
[2021-07-20 12:13] LABS: Creatinine, Urine 77.51 mg/dL (63-166); Protein, Urine Random Quant Less than 10 mg/dL (1-14); Sodium, Urine 101 mmol/L (Not Available); Urea Nitrogen, Random Urine 386 mg/dl
[2021-07-20] MEDS: Sodium Chloride 0.9% 1,000 ML IV SCH (13:09)
[2021-07-20] MEDS: Nitroglycerin 0.4 MG TAB (25 Tab Bottle) SL PRN ×2 (14:11→14:18)
[2021-07-20] MEDS: Acetaminophen 325 MG TAB PO PRN ×2 (14:18→21:22)
[2021-07-20] MEDS ORDERED: Famotidine 20 MG TAB PO SCH (14:45)
[2021-07-20] MEDS: Heparin 5,000 UNITS/ML VIAL SC SCH ×2 (16:08→21:24)
[2021-07-20] MEDS: cefTRIAXone\\ROCEPHIN 1 GM in Sodium Chloride 0.9% 100 ML IVPB SCH (23:28)
[2021-07-21] MEDS ORDERED: traMADol HCl 50 MG TAB PO PRN (00:29)
[2021-07-21] MEDS: Sodium Chloride 0.9% 1,000 ML IV SCH (05:27)
[2021-07-21 05:46] LABS: ALT (SGPT) 22 U/L (8-55); AST (SGOT) 51 U/L (5-34); Albumin 3.1 g/dL (3.5-5.0); Alkaline Phosphatase 114 U/L (40-110); Anion Gap 12 mmol/L (10-20); BUN (Urea Nitrogen) 15 mg/dL (8.4-25.7); Bilirubin, Total 3.5 mg/dL (0.2-1.2); Calc. Creatinine Clearance 98 mL/min (70-130); Calcium 8.9 mg/dL (7.8-10.44); Carbon Dioxide 24 mmol/L (22-29); Chloride 109 mmol/L (98-107); Globulin 3.2 g/dL (2.4-3.5); Glucose 80 mg/dL (70-105); Potassium 4.6 mmol/L (3.5-5.1); Protein, Total 6.3 g/dL (6.0-8.3); Sodium 140 mmol/L (136-145)
[2021-07-21 07:52] VITALS: BP 134/61; TEMP 97.9
[2021-07-21] MEDS: Propranolol 40 MG TAB PO SCH (09:15)
[2021-07-21] MEDS: Heparin 5,000 UNITS/ML VIAL SC SCH (09:15)
[2021-07-21] MEDS ORDERED: Cholestyramine/Aspartame 4 gm Packet PO SCH (10:15)
== END 2021-07-21 11:55 | disposition home or self-care (01) | DRG 683 ==
LOC: ERS 17:08 → ERHOLD 20:26 → 2SW 21:15
PROVIDERS: ADMIT Student in an Organized Health Care Education/Training Program; ATTEND Internal Medicine
DX: N17.9 Acute kidney failure, unspecified (principal); Z20.822 Contact with and (suspected) exposure to COVID-19; L03.115 Cellulitis of right lower limb; I13.0 Hypertensive heart and chronic kidney disease with heart failure and stage 1 through stage 4 chronic kidney disease, or unspecified chronic kidney disease; E87.1 Hypo-osmolality and hyponatremia; T39.395A Adverse effect of other nonsteroidal anti-inflammatory drugs [NSAID], initial encounter; T50.1X5A Adverse effect of loop [high-ceiling] diuretics, initial encounter; K74.60 Unspecified cirrhosis of liver; G89.29 Other chronic pain; I50.9 Heart failure, unspecified; E78.00 Pure hypercholesterolemia, unspecified; E78.5 Hyperlipidemia, unspecified; R00.1 Bradycardia, unspecified; D63.1 Anemia in chronic kidney disease; Z96.641 Presence of right artificial hip joint; E80.6 Other disorders of bilirubin metabolism; E86.9 Volume depletion, unspecified; K21.9 Gastro-esophageal reflux disease without esophagitis; N28.89 Other specified disorders of kidney and ureter; N18.30 Chronic kidney disease, stage 3 unspecified; R21 Rash and other nonspecific skin eruption; Z88.7 Allergy status to serum and vaccine; Z88.8 Allergy status to other drugs, medicaments and biological substances; Z28.21 Immunization not carried out because of patient refusal; Z79.899 Other long term (current) drug therapy; Z87.891 Personal history of nicotine dependence
CPT/HCPCS: 36415; 71045; 80048; 80053; 81001; 82140; 82550; 82570; 83735; 83880; 84156; 84300; 84484; 84540; 85025; 85610; 85730; 93005; 93010; J0696; J1644; J1650; J3490; J7050; Q0162; U0003; U0005

== ENCOUNTER 2021-07-31 13:44 | Emergency (ER) | payer BC ==
[2021-07-31 14:42] LABS: #Eosinphils 0.2 thou/uL (0.0-0.7); #Lymphocytes 1.2 thou/uL (1.20-3.40); #Monocytes 0.7 thou/uL (0.11-0.59); #Neutrophils 2.9 thou/uL (1.40-6.50); %Basophils 0.9 % (0.0-1.0); %Eosinophils 3.5 % (0.0-10.0); %Lymphocytes 23.5 % (21.0-51.0); %Monocytes 13.2 % (0.0-10.0); %Neutrophils 58.9 % (42.0-75.0); Hemoglobin 12.4 g/dL (14.0-18.0); Mean Corpuscular HGB CONC 33.9 g/dL (32.0-36.0); Mean Corpuscular Volume 97.2 fL (78.0-98.0); Mean Platelet Volume 7.8 fL (7.4-10.4); Platelet Count 109 thou/uL (130-400); RBC Distribution Width 15.1 % (11.5-14.5); Red Blood Cell (RBC) Count 3.77 mill/uL (4.70-6.10)
[2021-07-31 15:02] LABS: ALT (SGPT) 29 U/L (8-55); AST (SGOT) 66 U/L (5-34); Albumin 3.7 g/dL (3.5-5.0); Alkaline Phosphatase 134 U/L (40-110); Anion Gap 13 mmol/L (10-20); BUN (Urea Nitrogen) 12 mg/dL (8.4-25.7); Bilirubin, Total 4.5 mg/dL (0.2-1.2); Calc. Creatinine Clearance 0 mL/min (70-130); Calcium 9.5 mg/dL (7.8-10.44); Carbon Dioxide 24 mmol/L (22-29); Chloride 102 mmol/L (98-107); Glucose 133 mg/dL (70-105); Lipase 49 U/L (8-78); Potassium 3.6 mmol/L (3.5-5.1); Protein, Total 7.7 g/dL (6.0-8.3); Sodium 135 mmol/L (136-145)
[2021-07-31] MEDS ORDERED: Furosemide 40 MG/4 ML VIAL ONE (15:52)
[2021-07-31] MEDS ORDERED: Nitroglycerin 2% Ointment 1 INCH/1 GM Packet ONE (15:52)
[2021-07-31 16:41] LABS: Troponin I 0.011 ng/mL (< 0.028)
[2021-07-31 16:51] LABS: Bilirubin Negative (Negative); Blood, Urine Negative (Negative); Clarity Clear (Clear); Glucose, Urine (Dipstick) Normal (Negative); Ketone, Urine Negative (Negative); Leukocyte Negative Leu/uL (Negative); Nitrite Negative (Negative); Protein, Urine (Dipstick) Negative (Neg-Trace); Specific Gravity, Urine 1.016 (1.002-1.036); Urobilinogen Normal mg/dL (Less than 2); pH, Urine 6.5 (5.0-9.0)
== END 2021-07-31 19:18 | disposition home or self-care (01) ==
LOC: ERS 13:44
DX: R06.00 Dyspnea, unspecified (principal); E78.5 Hyperlipidemia, unspecified; E78.00 Pure hypercholesterolemia, unspecified; I13.0 Hypertensive heart and chronic kidney disease with heart failure and stage 1 through stage 4 chronic kidney disease, or unspecified chronic kidney disease; I50.9 Heart failure, unspecified; N18.9 Chronic kidney disease, unspecified; Z87.891 Personal history of nicotine dependence; Z79.899 Other long term (current) drug therapy
CPT/HCPCS: 36415; 71045; 71275; 80053; 81003; 83690; 83880; 84484; 85025; 85379; 93005; 96374; J1940; Q9967

== ENCOUNTER 2021-08-01 04:11 | Emergency (ER) | payer BC ==
[2021-08-01 05:45] LABS: #Basophils 0.1 thou/uL (0.0-0.2); #Eosinphils 0.2 thou/uL (0.0-0.7); #Lymphocytes 1.1 thou/uL (1.20-3.40); #Monocytes 1.1 thou/uL (0.11-0.59); %Basophils 0.7 % (0.0-1.0); %Eosinophils 2.3 % (0.0-10.0); %Lymphocytes 12.9 % (21.0-51.0); %Neutrophils 71.2 % (42.0-75.0); Hemoglobin 12.4 g/dL (14.0-18.0); Mean Corpuscular HGB CONC 34.1 g/dL (32.0-36.0); Mean Corpuscular Hemoglobin 33.6 pg (27.0-31.0); Mean Corpuscular Volume 98.5 fL (78.0-98.0); Mean Platelet Volume 9.1 fL (7.4-10.4); Platelet Count 92 thou/uL (130-400); RBC Distribution Width 15.1 % (11.5-14.5); Red Blood Cell (RBC) Count 3.69 mill/uL (4.70-6.10); White Blood Cell (WBC) Count 8.5 thou/uL (4.8-10.8)
[2021-08-01] MEDS ORDERED: Ondansetron PF 4 MG/2 ML Vial ONE (06:00)
[2021-08-01 06:01] LABS: ALT (SGPT) 27 U/L (8-55); AST (SGOT) 69 U/L (5-34); Albumin 3.6 g/dL (3.5-5.0); Alkaline Phosphatase 114 U/L (40-110); Anion Gap 18 mmol/L (10-20); BUN (Urea Nitrogen) 12 mg/dL (8.4-25.7); Bilirubin, Total 5.3 mg/dL (0.2-1.2); Calc. Creatinine Clearance 0 mL/min (70-130); Calcium 9.1 mg/dL (7.8-10.44); Carbon Dioxide 20 mmol/L (22-29); Chloride 99 mmol/L (98-107); Globulin 3.8 g/dL (2.4-3.5); Glucose 92 mg/dL (70-105); Lipase 40 U/L (8-78); Potassium 3.5 mmol/L (3.5-5.1); Protein, Total 7.4 g/dL (6.0-8.3); Sodium 133 mmol/L (136-145)
== END 2021-08-01 09:09 | disposition home or self-care (01) ==
LOC: ERS 04:11
DX: R07.9 Chest pain, unspecified (principal); I11.0 Hypertensive heart disease with heart failure; I50.9 Heart failure, unspecified; E78.5 Hyperlipidemia, unspecified; E78.00 Pure hypercholesterolemia, unspecified; Z87.891 Personal history of nicotine dependence; Z79.899 Other long term (current) drug therapy
CPT/HCPCS: 36415; 80053; 82140; 83690; 83880; 84484; 85025; 93005; 96374; J2405

== ENCOUNTER 2021-08-22 12:01 | Inpatient (IN) | payer BC ==
[2021-08-22 13:29] LABS: #Eosinphils 0.1 thou/uL (0.0-0.7); #Lymphocytes 1.3 thou/uL (1.20-3.40); #Monocytes 0.5 thou/uL (0.11-0.59); #Neutrophils 3.1 thou/uL (1.40-6.50); %Basophils 0.6 % (0.0-1.0); %Lymphocytes 26.2 % (21.0-51.0); %Monocytes 9.9 % (0.0-10.0); %Neutrophils 62.2 % (42.0-75.0); Hemoglobin 12.2 g/dL (14.0-18.0); Mean Corpuscular HGB CONC 33.9 g/dL (32.0-36.0); Mean Corpuscular Hemoglobin 32.2 pg (27.0-31.0); Mean Corpuscular Volume 94.9 fL (78.0-98.0); Mean Platelet Volume 8.3 fL (7.4-10.4); Platelet Count 111 thou/uL (130-400); RBC Distribution Width 13.4 % (11.5-14.5); Red Blood Cell (RBC) Count 3.79 mill/uL (4.70-6.10)
[2021-08-22 13:37] LABS: INR-International Normal Ratio 1.3; Prothrombin Time 16.7 sec (12.0-14.7)
[2021-08-22 13:38] LABS: PTT 40.5 sec (22.9-36.1)
[2021-08-22] MEDS ORDERED: Ondansetron PF 4 MG/2 ML Vial ONE (13:38)
[2021-08-22] MEDS ORDERED: Morphine 4 MG/ML VIAL ONE (13:38)
[2021-08-22 13:51] LABS: ALT (SGPT) 27 U/L (8-55); AST (SGOT) 77 U/L (5-34); Albumin 3.6 g/dL (3.5-5.0); Alkaline Phosphatase 138 U/L (40-110); Anion Gap 18 mmol/L (10-20); BUN (Urea Nitrogen) 10 mg/dL (8.4-25.7); CK (CPK) 144 U/L (30-200); Calc. Creatinine Clearance 0 mL/min (70-130); Calcium 9.7 mg/dL (7.8-10.44); Carbon Dioxide 22 mmol/L (22-29); Chloride 101 mmol/L (98-107); Globulin 3.6 g/dL (2.4-3.5); Glucose 125 mg/dL (70-105); Lipase 47 U/L (8-78); Potassium 3.5 mmol/L (3.5-5.1); Protein, Total 7.2 g/dL (6.0-8.3); Sodium 137 mmol/L (136-145)
[2021-08-22 14:09] LABS: ALT (SGPT) 27 U/L (8-55); AST (SGOT) 85 U/L (5-34); Albumin 3.6 g/dL (3.5-5.0); Alkaline Phosphatase 130 U/L (40-110); Bilirubin, Direct 1.9 mg/dL (0.1-0.3); Bilirubin, Total 5.8 mg/dL (0.2-1.2); Protein, Total 7.6 g/dL (6.0-8.3)
[2021-08-22] MEDS ORDERED: Ondansetron ODT 4 MG TAB PO PRN (16:22)
[2021-08-22] MEDS ORDERED: Ondansetron PF 4 MG/2 ML Vial IVP PRN (16:22)
[2021-08-22] MEDS ORDERED: cefTRIAXone\\ROCEPHIN 1 GM VIAL ONE (18:20)
[2021-08-22] MEDS: cefTRIAXone\\ROCEPHIN 1 GM in Sodium Chloride 0.9% 100 ML IVPB SCH (18:38)
[2021-08-22 22:34] VITALS: BMI 34.7
[2021-08-23] MEDS: Cholestyramine/Aspartame 4 gm Packet PO SCH ×3 (00:24→21:42)
[2021-08-23 04:51] LABS: #Basophils 0.1 thou/uL (0.0-0.2); #Eosinphils 0.1 thou/uL (0.0-0.7); #Lymphocytes 2.3 thou/uL (1.20-3.40); #Monocytes 0.7 thou/uL (0.11-0.59); #Neutrophils 2.9 thou/uL (1.40-6.50); %Basophils 1.1 % (0.0-1.0); %Eosinophils 2.4 % (0.0-10.0); %Lymphocytes 36.8 % (21.0-51.0); %Monocytes 11.9 % (0.0-10.0); %Neutrophils 47.9 % (42.0-75.0); Hemoglobin 11.8 g/dL (14.0-18.0); Mean Corpuscular HGB CONC 31.8 g/dL (32.0-36.0); Mean Corpuscular Hemoglobin 30.4 pg (27.0-31.0); Mean Corpuscular Volume 95.8 fL (78.0-98.0); Platelet Count 102 thou/uL (130-400); RBC Distribution Width 13.6 % (11.5-14.5); Red Blood Cell (RBC) Count 3.87 mill/uL (4.70-6.10); White Blood Cell (WBC) Count 6.2 thou/uL (4.8-10.8)
[2021-08-23 05:16] LABS: ALT (SGPT) 25 U/L (8-55); AST (SGOT) 71 U/L (5-34); Albumin 3.3 g/dL (3.5-5.0); Alkaline Phosphatase 107 U/L (40-110); Anion Gap 13 mmol/L (10-20); BUN (Urea Nitrogen) 8 mg/dL (8.4-25.7); Bilirubin, Total 5.8 mg/dL (0.2-1.2); Calc. Creatinine Clearance 115 mL/min (70-130); Calcium 9.5 mg/dL (7.8-10.44); Carbon Dioxide 26 mmol/L (22-29); Chloride 102 mmol/L (98-107); Globulin 3.7 g/dL (2.4-3.5); Glucose 88 mg/dL (70-105); Magnesium 1.9 mg/dL (1.6-2.6); Potassium 3.2 mmol/L (3.5-5.1); Sodium 138 mmol/L (136-145)
[2021-08-23] MEDS ORDERED: Potassium Chloride 20 MEQ TAB PO SCH ×2 (08:15→14:00)
[2021-08-23 11:50] LABS: SARS-CoV-2 PCR by NAA Not Detected (NotDetected)
[2021-08-23] MEDS ORDERED: Rifaximin 550 MG TAB PO SCH (14:00)
[2021-08-23] MEDS ORDERED: Enoxaparin Sodium 40 MG/0.4 ML SYRINGE SC SCH (14:00)
[2021-08-23] MEDS: cefTRIAXone\\ROCEPHIN 1 GM in Sodium Chloride 0.9% 100 ML IVPB SCH (18:45)
[2021-08-23] MEDS: Morphine 4 MG/ML VIAL SLOW IVP PRN (20:19)
[2021-08-23] MEDS: Rifaximin 550 MG TAB PO SCH (20:20)
[2021-08-24 05:28] LABS: #Eosinphils 0.2 thou/uL (0.0-0.7); #Monocytes 0.6 thou/uL (0.11-0.59); #Neutrophils 2.3 thou/uL (1.40-6.50); %Basophils 0.4 % (0.0-1.0); %Eosinophils 3.9 % (0.0-10.0); %Lymphocytes 39.8 % (21.0-51.0); %Monocytes 11.4 % (0.0-10.0); %Neutrophils 44.5 % (42.0-75.0); Hemoglobin 11.4 g/dL (14.0-18.0); Mean Corpuscular HGB CONC 32.7 g/dL (32.0-36.0); Mean Corpuscular Hemoglobin 31.6 pg (27.0-31.0); Mean Corpuscular Volume 96.6 fL (78.0-98.0); Mean Platelet Volume 8.2 fL (7.4-10.4); Platelet Count 91 thou/uL (130-400); RBC Distribution Width 13.8 % (11.5-14.5); Red Blood Cell (RBC) Count 3.61 mill/uL (4.70-6.10); White Blood Cell (WBC) Count 5.1 thou/uL (4.8-10.8)
[2021-08-24 05:45] LABS: ALT (SGPT) 24 U/L (8-55); AST (SGOT) 66 U/L (5-34); Albumin 3.2 g/dL (3.5-5.0); Alkaline Phosphatase 101 U/L (40-110); Anion Gap 13 mmol/L (10-20); BUN (Urea Nitrogen) 7 mg/dL (8.4-25.7); Bilirubin, Total 5.2 mg/dL (0.2-1.2); Calc. Creatinine Clearance 113 mL/min (70-130); Calcium 9.2 mg/dL (7.8-10.44); Carbon Dioxide 25 mmol/L (22-29); Chloride 103 mmol/L (98-107); Globulin 3.5 g/dL (2.4-3.5); Glucose 93 mg/dL (70-105); Potassium 3.4 mmol/L (3.5-5.1); Protein, Total 6.7 g/dL (6.0-8.3); Sodium 138 mmol/L (136-145)
[2021-08-24] MEDS ORDERED: Potassium Chloride 20 MEQ TAB PO SCH (08:15)
[2021-08-24] MEDS: Enoxaparin Sodium 40 MG/0.4 ML SYRINGE SC SCH (09:43)
[2021-08-24] MEDS: Rifaximin 550 MG TAB PO SCH ×2 (09:44→20:27)
[2021-08-24] MEDS: Cholestyramine/Aspartame 4 gm Packet PO SCH ×2 (12:11→21:16)
[2021-08-24] MEDS ORDERED: Propranolol 40 MG TAB PO SCH (14:00)
[2021-08-24] MEDS: Morphine 4 MG/ML VIAL SLOW IVP PRN ×2 (14:44→21:16)
[2021-08-24] MEDS: cefTRIAXone\\ROCEPHIN 1 GM in Sodium Chloride 0.9% 100 ML IVPB SCH (18:01)
[2021-08-24] MEDS: Hydrocortisone 1% Cream 30 GM TUBE TOP SCH (20:25)
[2021-08-25] MEDS ORDERED: FLU VACC QS2021-22(6MOS UP)/PF 60 MCG/0.5 ML SYRINGE IM ONE (09:00)
[2021-08-25] MEDS: Enoxaparin Sodium 40 MG/0.4 ML SYRINGE SC SCH (10:02)
[2021-08-25] MEDS: Cholestyramine/Aspartame 4 gm Packet PO SCH ×2 (10:02→21:21)
[2021-08-25] MEDS: Hydrocortisone 1% Cream 30 GM TUBE TOP SCH ×2 (10:02→21:22)
[2021-08-25] MEDS: Rifaximin 550 MG TAB PO SCH ×2 (10:02→21:21)
[2021-08-25] MEDS: Propranolol 40 MG TAB PO SCH (10:03)
[2021-08-25] MEDS: Morphine 4 MG/ML VIAL SLOW IVP PRN ×3 (12:06→23:09)
[2021-08-25] MEDS: cefTRIAXone\\ROCEPHIN 1 GM in Sodium Chloride 0.9% 100 ML IVPB SCH (17:37)
[2021-08-25] MEDS: Calamine/Zinc Oxide 177 ML LOTION TP SCH (21:22)
[2021-08-26] MEDS: Hydrocortisone 1% Cream 30 GM TUBE TOP SCH ×2 (09:23→20:39)
[2021-08-26] MEDS: Calamine/Zinc Oxide 177 ML LOTION TP SCH ×3 (09:23→20:39)
[2021-08-26] MEDS: Cholestyramine/Aspartame 4 gm Packet PO SCH ×2 (09:23→20:40)
[2021-08-26] MEDS: Propranolol 40 MG TAB PO SCH (09:24)
[2021-08-26] MEDS: Rifaximin 550 MG TAB PO SCH ×2 (09:24→20:40)
[2021-08-26] MEDS: Morphine 4 MG/ML VIAL SLOW IVP PRN ×2 (09:24→16:45)
[2021-08-26] MEDS: Enoxaparin Sodium 40 MG/0.4 ML SYRINGE SC SCH (10:51)
[2021-08-26] MEDS: cefTRIAXone\\ROCEPHIN 1 GM in Sodium Chloride 0.9% 100 ML IVPB SCH (16:40)
[2021-08-26] MEDS ORDERED: Furosemide 40 MG TAB PO SCH (21:00)
[2021-08-26 22:49] VITALS: BP 140/64; TEMP 98
[2021-08-27] MEDS ORDERED: Spironolactone 25 MG TAB PO SCH (09:00)
== END 2021-08-26 22:43 | DRG 432 ==
LOC: ERS 12:01 → ERHOLD 15:24 → 2NO 21:55 → OBSVTOIN 08-24 13:47
PROVIDERS: ADMIT Internal Medicine; ATTEND Internal Medicine
DX: K70.40 Alcoholic hepatic failure without coma (principal); I50.33 Acute on chronic diastolic (congestive) heart failure; G92.8 Other toxic encephalopathy; L03.116 Cellulitis of left lower limb; L03.115 Cellulitis of right lower limb; I13.0 Hypertensive heart and chronic kidney disease with heart failure and stage 1 through stage 4 chronic kidney disease, or unspecified chronic kidney disease; Z20.822 Contact with and (suspected) exposure to COVID-19; E88.09 Other disorders of plasma-protein metabolism, not elsewhere classified; E87.6 Hypokalemia; N18.9 Chronic kidney disease, unspecified; E78.5 Hyperlipidemia, unspecified; D64.9 Anemia, unspecified; E78.00 Pure hypercholesterolemia, unspecified; D63.1 Anemia in chronic kidney disease; D69.6 Thrombocytopenia, unspecified; I08.1 Rheumatic disorders of both mitral and tricuspid valves; K70.30 Alcoholic cirrhosis of liver without ascites; Z82.3 Family history of stroke; Z87.891 Personal history of nicotine dependence; Z28.21 Immunization not carried out because of patient refusal; Z88.7 Allergy status to serum and vaccine; Z88.8 Allergy status to other drugs, medicaments and biological substances; Z76.82 Awaiting organ transplant status; Z79.899 Other long term (current) drug therapy; Z82.49 Family history of ischemic heart disease and other diseases of the circulatory system
CPT/HCPCS: 36415; 70450; 71045; 76705; 80053; 82140; 82550; 83605; 83690; 83735; 83880; 84484; 85025; 85610; 85730; 93005; 93306; 96372; 96374; 96375; 96376; G0378; J0696; J1650; J2270; J2405; J3490; U0003; U0005

== ENCOUNTER 2022-06-23 13:41 | Inpatient (IN) | payer BC ==
[2022-06-23 14:38] LABS: #Basophils 0.1 thou/uL (0.0-0.2); #Eosinphils 0.5 thou/uL (0.0-0.7); #Lymphocytes 1.6 thou/uL (1.20-3.40); #Monocytes 0.7 thou/uL (0.11-0.59); #Neutrophils 3.2 thou/uL (1.40-6.50); %Basophils 0.9 % (0.0-1.0); %Eosinophils 8.2 % (0.0-10.0); %Lymphocytes 26.5 % (21.0-51.0); %Monocytes 11.7 % (0.0-10.0); %Neutrophils 52.7 % (42.0-75.0); Hemoglobin 6.9 g/dL (14.0-18.0); Mean Corpuscular HGB CONC 33.1 g/dL (32.0-36.0); Mean Corpuscular Volume 96.6 fl (78.0-98.0); Mean Platelet Volume 8.2 fL (7.4-10.4); Platelet Count 143 10x3/uL (130-400); Red Blood Cell (RBC) Count 2.16 mill/uL (4.70-6.10)
[2022-06-23 14:49] LABS: INR-International Normal Ratio 1.1; Prothrombin Time 14.8 sec (12.0-14.7)
[2022-06-23 14:59] LABS: ALT (SGPT) 23 U/L (8-55); AST (SGOT) 58 U/L (5-34); Albumin 2.8 g/dL (3.5-5.0); Alkaline Phosphatase 105 U/L (40-110); Anion Gap 13 mmol/L (10-20); BUN (Urea Nitrogen) 26 mg/dL (8.4-25.7); Calc. Creatinine Clearance 0 mL/min (70-130); Calcium 8.4 mg/dL (7.8-10.44); Carbon Dioxide 21 mmol/L (22-29); Chloride 107 mmol/L (98-107); Estimated GFR 31; Globulin 2.5 g/dL (2.4-3.5); Glucose 98 mg/dL (70-105); Potassium 4.5 mmol/L (3.5-5.1); Protein, Total 5.3 g/dL (6.0-8.3); Sodium 136 mmol/L (136-145)
[2022-06-23] MEDS ORDERED: Morphine 4 MG/ML VIAL ONE (16:19)
[2022-06-23] MEDS ORDERED: Ondansetron PF 4 MG/2 ML Vial ONE (16:24)
[2022-06-23] MEDS ORDERED: Ondansetron PF 4 MG/2 ML Vial IVP PRN (16:58)
[2022-06-23] MEDS ORDERED: Senokot S 8.6-50 MG TAB PO PRN (16:58)
[2022-06-23] MEDS ORDERED: Ondansetron ODT 4 MG TAB PO PRN (16:58)
[2022-06-23] MEDS ORDERED: Furosemide 40 MG TAB PO SCH (18:30)
[2022-06-23] MEDS: Morphine 4 MG/ML VIAL SLOW IVP PRN (20:24)
[2022-06-23] MEDS: Rifaximin 550 MG TAB PO SCH (20:24)
[2022-06-23 22:47] LABS: Hemoglobin 7.9 g/dL (14.0-18.0)
[2022-06-24] MEDS: Nystatin Cream 15 GM TUBE TOP SCH ×3 (02:00→22:07)
[2022-06-24] MEDS: Morphine 4 MG/ML VIAL SLOW IVP PRN (05:59)
[2022-06-24 06:08] LABS: SARS-CoV-2 NAA Rapid Test Not Detected (NotDetected)
[2022-06-24 07:05] LABS: #Eosinphils 0.3 thou/uL (0.0-0.7); #Lymphocytes 1.7 thou/uL (1.20-3.40); #Monocytes 0.5 thou/uL (0.11-0.59); #Neutrophils 2.4 thou/uL (1.40-6.50); %Eosinophils 6.8 % (0.0-10.0); %Lymphocytes 33.9 % (21.0-51.0); %Monocytes 10.2 % (0.0-10.0); %Neutrophils 48.1 % (42.0-75.0); Hemoglobin 7.1 g/dL (14.0-18.0); Mean Corpuscular HGB CONC 32.2 g/dL (32.0-36.0); Mean Corpuscular Hemoglobin 31.3 pg (27.0-31.0); Mean Corpuscular Volume 97.2 fl (78.0-98.0); Mean Platelet Volume 8.7 fL (7.4-10.4); Platelet Count 125 10x3/uL (130-400); RBC Distribution Width 12.9 % (11.5-14.5); Red Blood Cell (RBC) Count 2.26 mill/uL (4.70-6.10)
[2022-06-24 07:18] LABS: Anion Gap 9 mmol/L (10-20); BUN (Urea Nitrogen) 20 mg/dL (8.4-25.7); Calc. Creatinine Clearance 70 mL/min (70-130); Calcium 8.5 mg/dL (7.8-10.44); Carbon Dioxide 23 mmol/L (22-29); Chloride 108 mmol/L (98-107); Estimated GFR 43; Glucose 82 mg/dL (70-105); Potassium 4.1 mmol/L (3.5-5.1); Sodium 136 mmol/L (136-145)
[2022-06-24] MEDS ORDERED: Furosemide 40 MG TAB PO SCH (09:00)
[2022-06-24] MEDS: Rifaximin 550 MG TAB PO SCH ×2 (09:07→22:07)
[2022-06-24] MEDS: Albumin 25% 25 GM/100 ML BOT IVPB SCH ×3 (11:34→22:06)
[2022-06-24] MEDS ORDERED: Albumin 25% 25 GM/100 ML BOT IVPB SCH (12:00)
[2022-06-24] MEDS: traMADol HCl 50 MG TAB PO PRN (17:15)
[2022-06-25] MEDS: traMADol HCl 50 MG TAB PO PRN ×3 (01:28→17:15)
[2022-06-25] MEDS: Albumin 25% 25 GM/100 ML BOT IVPB SCH (04:02)
[2022-06-25 04:03] VITALS: BMI 32.0
[2022-06-25 07:41] LABS: Anion Gap 12 mmol/L (10-20); BUN (Urea Nitrogen) 13 mg/dL (8.4-25.7); Calc. Creatinine Clearance 85 mL/min (70-130); Calcium 9.1 mg/dL (7.8-10.44); Carbon Dioxide 21 mmol/L (22-29); Chloride 108 mmol/L (98-107); Estimated GFR 54; Glucose 81 mg/dL (70-105); Sodium 137 mmol/L (136-145)
[2022-06-25 07:45] LABS: #Eosinphils 0.3 thou/uL (0.0-0.7); #Lymphocytes 1.4 thou/uL (1.20-3.40); #Monocytes 0.6 thou/uL (0.11-0.59); #Neutrophils 2.4 thou/uL (1.40-6.50); %Basophils 0.5 % (0.0-1.0); %Eosinophils 5.6 % (0.0-10.0); %Lymphocytes 30.2 % (21.0-51.0); %Monocytes 12.8 % (0.0-10.0); %Neutrophils 50.9 % (42.0-75.0); Hemoglobin 7.8 g/dL (14.0-18.0); Mean Corpuscular HGB CONC 32.3 g/dL (32.0-36.0); Mean Corpuscular Hemoglobin 30.8 pg (27.0-31.0); Mean Corpuscular Volume 95.4 fl (78.0-98.0); Mean Platelet Volume 8.9 fL (7.4-10.4); Platelet Count 110 10x3/uL (130-400); RBC Distribution Width 13.5 % (11.5-14.5); Red Blood Cell (RBC) Count 2.53 mill/uL (4.70-6.10); White Blood Cell (WBC) Count 4.7 10x3/uL (4.8-10.8)
[2022-06-25] MEDS: Rifaximin 550 MG TAB PO SCH ×2 (09:43→21:08)
[2022-06-25] MEDS: Nystatin Cream 15 GM TUBE TOP SCH ×2 (09:45→21:08)
[2022-06-25] MEDS ORDERED: Octreotide Acetate 1,250 MCG in Sodium Chloride 0.9% 250 ML 250 ML IVPB SCH (10:45)
[2022-06-25] MEDS: Acetaminophen 325 MG TAB PO PRN (14:23)
[2022-06-26] MEDS: traMADol HCl 50 MG TAB PO PRN ×2 (04:41→13:34)
[2022-06-26] MEDS: Acetaminophen 325 MG TAB PO PRN ×2 (04:41→13:35)
[2022-06-26 07:20] LABS: #Eosinphils 0.3 thou/uL (0.0-0.7); #Lymphocytes 1.3 thou/uL (1.20-3.40); #Monocytes 0.4 thou/uL (0.11-0.59); #Neutrophils 1.7 thou/uL (1.40-6.50); %Basophils 1.1 % (0.0-1.0); %Eosinophils 6.7 % (0.0-10.0); %Lymphocytes 34.5 % (21.0-51.0); %Monocytes 11.6 % (0.0-10.0); %Neutrophils 46.2 % (42.0-75.0); Hemoglobin 8.8 g/dL (14.0-18.0); Mean Corpuscular HGB CONC 32.5 g/dL (32.0-36.0); Mean Corpuscular Hemoglobin 30.6 pg (27.0-31.0); Mean Corpuscular Volume 94.3 fl (78.0-98.0); Mean Platelet Volume 8.6 fL (7.4-10.4); Platelet Count 123 10x3/uL (130-400); RBC Distribution Width 13.5 % (11.5-14.5); Red Blood Cell (RBC) Count 2.86 mill/uL (4.70-6.10); White Blood Cell (WBC) Count 3.7 10x3/uL (4.8-10.8)
[2022-06-26 07:46] VITALS: BP 132/66; TEMP 98.1
[2022-06-26 07:51] LABS: Anion Gap 11 mmol/L (10-20); BUN (Urea Nitrogen) 12 mg/dL (8.4-25.7); Calc. Creatinine Clearance 88 mL/min (70-130); Calcium 9.1 mg/dL (7.8-10.44); Carbon Dioxide 24 mmol/L (22-29); Chloride 105 mmol/L (98-107); Estimated GFR 58; Glucose 103 mg/dL (70-105); Potassium 4.1 mmol/L (3.5-5.1); Sodium 136 mmol/L (136-145)
[2022-06-26] MEDS: Nystatin Cream 15 GM TUBE TOP SCH (10:20)
[2022-06-26] MEDS: Rifaximin 550 MG TAB PO SCH (13:34)
[2022-06-26 13:47] LABS: Iron 32 ug/dL (65-175); Iron Binding Capacity, Total 376 mcg/dL (261-462)
[2022-06-26] MEDS ORDERED: Sucralfate 1 GM/10 ML UDCUP PO SCH (21:00)
== END 2022-06-26 17:35 | disposition home or self-care (01) | DRG 812 ==
LOC: ERS 13:41 → SURG B 16:23
PROVIDERS: ADMIT Internal Medicine; ATTEND Internal Medicine
PROC: 30233N1 Transfusion of Nonautologous Red Blood Cells into Peripheral Vein, Percutaneous Approach (ICD-10-PCS; principal; 2022-06-26)
PROC: 0DB78ZX Excision of Stomach, Pylorus, Via Natural or Artificial Opening Endoscopic, Diagnostic (ICD-10-PCS; 2022-06-26)
DX: D50.9 Iron deficiency anemia, unspecified (principal); N17.9 Acute kidney failure, unspecified; I13.0 Hypertensive heart and chronic kidney disease with heart failure and stage 1 through stage 4 chronic kidney disease, or unspecified chronic kidney disease; I50.32 Chronic diastolic (congestive) heart failure; I85.10 Secondary esophageal varices without bleeding; E78.00 Pure hypercholesterolemia, unspecified; N18.30 Chronic kidney disease, stage 3 unspecified; Z96.641 Presence of right artificial hip joint; K74.60 Unspecified cirrhosis of liver; E88.09 Other disorders of plasma-protein metabolism, not elsewhere classified; K25.9 Gastric ulcer, unspecified as acute or chronic, without hemorrhage or perforation; D63.1 Anemia in chronic kidney disease; Z87.891 Personal history of nicotine dependence; Z88.8 Allergy status to other drugs, medicaments and biological substances; Z79.899 Other long term (current) drug therapy
CPT/HCPCS: 36415; 36430; 76770; 80048; 80053; 82274; 82728; 83540; 83550; 84484; 85025; 85610; 85730; 86850; 86900; 86901; 88305; 88342; 93005; 96374; 96375; J2270; J2354; J2405; J7050; P9016; P9047; Q0162

== ENCOUNTER 2022-07-08 19:59 | Emergency (ER) | payer BC ==
[2022-07-08] MEDS ORDERED: Ondansetron PF 4 MG/2 ML Vial ONE (20:41)
[2022-07-08] MEDS ORDERED: Pantoprazole 40 MG VIAL ONE (20:41)
[2022-07-08 21:01] LABS: #Eosinphils 0.1 thou/uL (0.0-0.7); #Lymphocytes 0.3 thou/uL (1.20-3.40); #Monocytes 0.2 thou/uL (0.11-0.59); #Neutrophils 3.6 thou/uL (1.40-6.50); %Basophils 0.3 % (0.0-1.0); %Eosinophils 1.3 % (0.0-10.0); %Lymphocytes 6.7 % (21.0-51.0); %Monocytes 4.5 % (0.0-10.0); %Neutrophils 87.2 % (42.0-75.0); Hemoglobin 8.7 g/dL (14.0-18.0); Mean Corpuscular Hemoglobin 29.5 pg (27.0-31.0); Mean Corpuscular Volume 94.9 fl (78.0-98.0); Mean Platelet Volume 9.2 fL (7.4-10.4); Platelet Count 113 10x3/uL (130-400); RBC Distribution Width 14.4 % (11.5-14.5); Red Blood Cell (RBC) Count 2.95 mill/uL (4.70-6.10); White Blood Cell (WBC) Count 4.1 10x3/uL (4.8-10.8)
[2022-07-08 21:02] LABS: Bilirubin Negative (Negative); Blood, Urine Negative (Negative); Clarity Clear (Clear); Glucose, Urine (Dipstick) Normal (Negative); Ketone, Urine Negative (Negative); Leukocyte Negative Leu/uL (Negative); Nitrite Negative (Negative); Protein, Urine (Dipstick) Negative (Neg-Trace); Specific Gravity, Urine 1.017 (1.002-1.036); Urobilinogen Normal mg/dL (Less than 2); pH, Urine 5.5 (5.0-9.0)
[2022-07-08 21:21] LABS: ALT (SGPT) 20 U/L (8-55); AST (SGOT) 53 U/L (5-34); Albumin 3.3 g/dL (3.5-5.0); Alkaline Phosphatase 111 U/L (40-110); Anion Gap 13 mmol/L (10-20); BUN (Urea Nitrogen) 27 mg/dL (8.4-25.7); Bilirubin, Total 2.7 mg/dL (0.2-1.2); Calc. Creatinine Clearance 0 mL/min (70-130); Calcium 8.7 mg/dL (7.8-10.44); Carbon Dioxide 20 mmol/L (22-29); Chloride 110 mmol/L (98-107); Estimated GFR 44; Globulin 2.9 g/dL (2.4-3.5); Glucose 101 mg/dL (70-105); Lipase 77 U/L (8-78); Potassium 4.3 mmol/L (3.5-5.1); Protein, Total 6.2 g/dL (6.0-8.3); Sodium 139 mmol/L (136-145)
[2022-07-08 21:25] LABS: INR-International Normal Ratio 1.2; Prothrombin Time 15.7 sec (12.0-14.7)
== END 2022-07-08 23:15 | disposition home or self-care (01) ==
LOC: ERS 19:59
DX: K70.30 Alcoholic cirrhosis of liver without ascites (principal); I11.0 Hypertensive heart disease with heart failure; I50.9 Heart failure, unspecified; E78.00 Pure hypercholesterolemia, unspecified; F17.210 Nicotine dependence, cigarettes, uncomplicated; Z79.899 Other long term (current) drug therapy
CPT/HCPCS: 36415; 71045; 74177; 80053; 81003; 82140; 83690; 83880; 84484; 85025; 85610; 85730; 93005; 96374; 96375; C9113; J2405; Q9967

== ENCOUNTER 2022-08-01 11:10 | Inpatient (IN) | payer BC ==
[2022-08-01 11:47] LABS: #Basophils 0.1 thou/uL (0.0-0.2); #Eosinphils 0.4 thou/uL (0.0-0.7); #Lymphocytes 1.4 thou/uL (1.20-3.40); #Monocytes 0.6 thou/uL (0.11-0.59); #Neutrophils 3.5 thou/uL (1.40-6.50); %Eosinophils 6.5 % (0.0-10.0); %Lymphocytes 23.5 % (21.0-51.0); %Monocytes 9.9 % (0.0-10.0); Hemoglobin 6.9 g/dL (14.0-18.0); Mean Corpuscular HGB CONC 32.5 g/dL (32.0-36.0); Mean Corpuscular Hemoglobin 29.7 pg (27.0-31.0); Mean Corpuscular Volume 91.5 fl (78.0-98.0); Mean Platelet Volume 8.8 fL (7.4-10.4); Platelet Count 158 10x3/uL (130-400); RBC Distribution Width 16.1 % (11.5-14.5); Red Blood Cell (RBC) Count 2.33 mill/uL (4.70-6.10)
[2022-08-01 11:54] LABS: ALT (SGPT) 17 U/L (8-55); AST (SGOT) 52 U/L (5-34); Albumin 2.7 g/dL (3.5-5.0); Alkaline Phosphatase 100 U/L (40-110); Anion Gap 10 mmol/L (10-20); BUN (Urea Nitrogen) 25 mg/dL (8.4-25.7); Bilirubin, Total 1.8 mg/dL (0.2-1.2); Calc. Creatinine Clearance 0 mL/min (70-130); Calcium 8.6 mg/dL (7.8-10.44); Carbon Dioxide 22 mmol/L (22-29); Chloride 106 mmol/L (98-107); Estimated GFR 27; Globulin 3.1 g/dL (2.4-3.5); Glucose 128 mg/dL (70-105); Potassium 4.3 mmol/L (3.5-5.1); Protein, Total 5.8 g/dL (6.0-8.3); Sodium 134 mmol/L (136-145)
[2022-08-01 12:13] LABS: INR-International Normal Ratio 1.2; PTT 34.4 sec (22.9-36.1); Prothrombin Time 15.6 sec (12.0-14.7)
[2022-08-01 14:25] LABS: Bilirubin Negative (Negative); Blood, Urine Negative (Negative); Clarity Clear (Clear); Glucose, Urine (Dipstick) Normal (Negative); Ketone, Urine Negative (Negative); Leukocyte Negative Leu/uL (Negative); Nitrite Negative (Negative); Protein, Urine (Dipstick) Negative (Neg-Trace); Specific Gravity, Urine 1.009 (1.002-1.036); Urobilinogen Normal mg/dL (Less than 2)
[2022-08-01 18:51] LABS: Troponin I Less than 0.010 ng/mL (< 0.028)
[2022-08-01] MEDS ORDERED: ALPRAZolam 1 MG TAB PO PRN (19:35)
[2022-08-01 19:42] LABS: Phosphorus 3.5 mg/dL (2.3-4.7)
[2022-08-01 20:06] LABS: Magnesium 2.1 mg/dL (1.6-2.6)
[2022-08-01 20:47] VITALS: BMI 32.4
[2022-08-01 21:10] LABS: Hemoglobin 7.8 g/dL (14.0-18.0)
[2022-08-01 21:33] LABS: Troponin I Less than 0.010 ng/mL (< 0.028)
[2022-08-01] MEDS: Rifaximin 550 MG TAB PO SCH (21:36)
[2022-08-01] MEDS: Sucralfate 1 GM TAB PO SCH (21:36)
[2022-08-01] MEDS: traMADol HCl 50 MG TAB PO PRN (22:36)
[2022-08-02 05:26] LABS: ALT (SGPT) 17 U/L (8-55); AST (SGOT) 42 U/L (5-34); Albumin 2.4 g/dL (3.5-5.0); Alkaline Phosphatase 80 U/L (40-110); Anion Gap 11 mmol/L (10-20); BUN (Urea Nitrogen) 28 mg/dL (8.4-25.7); Bilirubin, Total 2.2 mg/dL (0.2-1.2); Calc. Creatinine Clearance 47 mL/min (70-130); Calcium 8.3 mg/dL (7.8-10.44); Carbon Dioxide 22 mmol/L (22-29); Chloride 106 mmol/L (98-107); Estimated GFR 26; Globulin 2.8 g/dL (2.4-3.5); Glucose 110 mg/dL (70-105); Potassium 4.1 mmol/L (3.5-5.1); Protein, Total 5.2 g/dL (6.0-8.3); Sodium 135 mmol/L (136-145)
[2022-08-02 05:33] LABS: #Eosinphils 0.2 thou/uL (0.0-0.7); #Lymphocytes 1.8 thou/uL (1.20-3.40); #Monocytes 0.5 thou/uL (0.11-0.59); #Neutrophils 2.7 thou/uL (1.40-6.50); %Basophils 0.7 % (0.0-1.0); %Eosinophils 4.2 % (0.0-10.0); %Lymphocytes 33.7 % (21.0-51.0); %Monocytes 9.5 % (0.0-10.0); %Neutrophils 51.9 % (42.0-75.0); Hemoglobin 6.8 g/dL (14.0-18.0); Mean Corpuscular Hemoglobin 30.2 pg (27.0-31.0); Mean Corpuscular Volume 91.5 fl (78.0-98.0); Mean Platelet Volume 9.3 fL (7.4-10.4); Platelet Count 106 10x3/uL (130-400); Red Blood Cell (RBC) Count 2.26 mill/uL (4.70-6.10); White Blood Cell (WBC) Count 5.3 10x3/uL (4.8-10.8)
[2022-08-02] MEDS: Sucralfate 1 GM TAB PO SCH ×3 (09:11→21:06)
[2022-08-02] MEDS: Rifaximin 550 MG TAB PO SCH ×2 (09:12→21:05)
[2022-08-02] MEDS ORDERED: Octreotide Acetate 1,250 MCG in Sodium Chloride 0.9% 250 ML 250 ML IVPB SCH (09:15)
[2022-08-02 12:30] LABS: Amphetamine Not Detected (NotDetected); Barbiturates Screen Not Detected (NotDetected); Benzodiazepine Screen Detected (NotDetected); Cocaine Metabolite Screen Not Detected (NotDetected); Methadone Not Detected (NotDetected); Methamphetamine Not Detected (NotDetected); Opiate Screen Not Detected (NotDetected); Oxycodone Screen Not Detected (NotDetected); Phencyclidine (PCP) Not Detected (NotDetected); THC/Cannabinoid Screen Detected (NotDetected); Tricyclic Screen Not Detected (NotDetected)
[2022-08-02] MEDS: traMADol HCl 50 MG TAB PO PRN ×2 (13:44→21:11)
[2022-08-02] MEDS: Pantoprazole 80 MG in Sodium Chloride 0.9% 100 ML IVPB SCH (14:26)
[2022-08-03] MEDS: Pantoprazole 80 MG in Sodium Chloride 0.9% 100 ML IVPB SCH ×2 (00:34→10:46)
[2022-08-03 05:27] LABS: #Basophils 0.1 thou/uL (0.0-0.2); #Eosinphils 0.2 thou/uL (0.0-0.7); #Lymphocytes 1.4 thou/uL (1.20-3.40); #Monocytes 0.5 thou/uL (0.11-0.59); #Neutrophils 1.6 thou/uL (1.40-6.50); %Basophils 1.4 % (0.0-1.0); %Eosinophils 5.6 % (0.0-10.0); %Lymphocytes 36.8 % (21.0-51.0); %Monocytes 14.3 % (0.0-10.0); %Neutrophils 41.9 % (42.0-75.0); Hemoglobin 8.5 g/dL (14.0-18.0); Mean Corpuscular HGB CONC 33.9 g/dL (32.0-36.0); Mean Corpuscular Hemoglobin 30.3 pg (27.0-31.0); Mean Corpuscular Volume 89.6 fl (78.0-98.0); Mean Platelet Volume 9.2 fL (7.4-10.4); Platelet Count 112 10x3/uL (130-400); RBC Distribution Width 15.3 % (11.5-14.5); Red Blood Cell (RBC) Count 2.81 mill/uL (4.70-6.10); White Blood Cell (WBC) Count 3.8 10x3/uL (4.8-10.8)
[2022-08-03] MEDS: Rifaximin 550 MG TAB PO SCH ×2 (08:17→21:54)
[2022-08-03] MEDS: Sucralfate 1 GM TAB PO SCH ×3 (08:19→21:55)
[2022-08-03] MEDS ORDERED: Spironolactone 25 MG TAB PO SCH (09:00)
[2022-08-03] MEDS ORDERED: Sodium Bicarbonate 50 MEQ in Sodium Chloride 0.45% 1,000 ML IV SCH (10:00)
[2022-08-03] MEDS: Albumin 25% 25 GM/100 ML BOT IVPB SCH ×3 (10:45→21:56)
[2022-08-03 14:00] LABS: Creatinine, Urine 57.75 mg/dL (63-166)
[2022-08-03] MEDS ORDERED: PROPOFOL 200 MG/20 ML VIAL ONE (14:42)
[2022-08-03] MEDS: traMADol HCl 50 MG TAB PO PRN ×2 (16:03→22:08)
[2022-08-03] MEDS: ALPRAZolam 0.5 MG TAB PO PRN (22:08)
[2022-08-04 06:19] LABS: Hemoglobin 7.7 g/dL (14.0-18.0); Mean Corpuscular HGB CONC 32.9 g/dL (32.0-36.0); Mean Corpuscular Volume 91.1 fl (78.0-98.0); Mean Platelet Volume 9.2 fL (7.4-10.4); Platelet Count 98 10x3/uL (130-400); RBC Distribution Width 15.3 % (11.5-14.5); Red Blood Cell (RBC) Count 2.56 mill/uL (4.70-6.10); White Blood Cell (WBC) Count 2.4 10x3/uL (4.8-10.8)
[2022-08-04 06:35] LABS: Anion Gap 9 mmol/L (10-20); BUN (Urea Nitrogen) 17 mg/dL (8.4-25.7); Calc. Creatinine Clearance 74 mL/min (70-130); Calcium 8.5 mg/dL (7.8-10.44); Carbon Dioxide 25 mmol/L (22-29); Chloride 108 mmol/L (98-107); Estimated GFR 45; Glucose 91 mg/dL (70-105); Potassium 4.3 mmol/L (3.5-5.1); Sodium 138 mmol/L (136-145)
[2022-08-04 06:43] LABS: Band 2 % (5-11); Hypochromia SLIGHT = 6-15 cells (100X) (0-5/hpf); Lymphocytes 50 % (21-51); MDiff Complete? YES; Monocytes 4 % (0-10); Neutrophil 44 % (42-75); Platelet Morphology Comment Appears Adequate
[2022-08-04] MEDS: Rifaximin 550 MG TAB PO SCH ×2 (09:15→20:45)
[2022-08-04] MEDS: Sucralfate 1 GM TAB PO SCH ×3 (09:15→20:45)
[2022-08-04] MEDS: ALPRAZolam 0.5 MG TAB PO PRN ×2 (09:29→20:49)
[2022-08-04] MEDS: traMADol HCl 50 MG TAB PO PRN ×2 (09:29→20:49)
[2022-08-05] MEDS: traMADol HCl 50 MG TAB PO PRN ×3 (04:15→23:03)
[2022-08-05] MEDS: Rifaximin 550 MG TAB PO SCH ×2 (08:30→20:38)
[2022-08-05] MEDS: Sucralfate 1 GM TAB PO SCH ×3 (08:30→20:31)
[2022-08-05 08:36] LABS: Mean Corpuscular HGB CONC 33.3 g/dL (32.0-36.0); Mean Corpuscular Hemoglobin 30.5 pg (27.0-31.0); Mean Corpuscular Volume 91.7 fl (78.0-98.0); Mean Platelet Volume 8.3 fL (7.4-10.4); Platelet Count 113 10x3/uL (130-400); RBC Distribution Width 15.5 % (11.5-14.5); Red Blood Cell (RBC) Count 2.62 mill/uL (4.70-6.10); White Blood Cell (WBC) Count 2.6 10x3/uL (4.8-10.8)
[2022-08-05 08:58] LABS: Band 3 % (5-11); Eosinophils 2 % (0-10); Lymphocytes 40 % (21-51); MDiff Complete? YES; Monocytes 11 % (0-10); Neutrophil 44 % (42-75)
[2022-08-05 09:03] LABS: Albumin 3.1 g/dL (3.5-5.0); Anion Gap 7 mmol/L (10-20); BUN (Urea Nitrogen) 12 mg/dL (8.4-25.7); BUN/Creatinine Ratio 8.22; Calc. Creatinine Clearance 87 mL/min (70-130); Calcium 8.6 mg/dL (7.8-10.44); Carbon Dioxide 27 mmol/L (22-29); Chloride 110 mmol/L (98-107); Estimated GFR 58; Glucose 83 mg/dL (70-105); Potassium 3.9 mmol/L (3.5-5.1); Sodium 140 mmol/L (136-145)
[2022-08-05 09:35] LABS: Reticulocyte Count 2.9 % (0.5-1.5)
[2022-08-05] MEDS ORDERED: Iopamidol-370 76% 500 ML 1 ML ONE (10:46)
[2022-08-05] MEDS ORDERED: Ondansetron PF 4 MG/2 ML Vial IVP PRN (14:15)
[2022-08-05] MEDS ORDERED: Ondansetron ODT 4 MG TAB PO PRN (14:15)
[2022-08-05] MEDS: Sodium Chloride 0.9% 1,000 ML IV SCH (14:26)
[2022-08-05] MEDS: Albumin 25% 25 GM/100 ML BOT IVPB SCH ×2 (14:27→20:31)
[2022-08-06] MEDS: Sodium Chloride 0.9% 1,000 ML IV SCH (03:27)
[2022-08-06 05:34] LABS: #Eosinphils 0.1 thou/uL (0.0-0.7); #Lymphocytes 1.1 thou/uL (1.20-3.40); #Monocytes 0.3 thou/uL (0.11-0.59); #Neutrophils 1.3 thou/uL (1.40-6.50); %Basophils 1.2 % (0.0-1.0); %Eosinophils 3.7 % (0.0-10.0); %Lymphocytes 38.1 % (21.0-51.0); %Monocytes 11.4 % (0.0-10.0); %Neutrophils 45.7 % (42.0-75.0); Mean Corpuscular HGB CONC 33.1 g/dL (32.0-36.0); Mean Corpuscular Hemoglobin 29.9 pg (27.0-31.0); Mean Corpuscular Volume 90.2 fl (78.0-98.0); Mean Platelet Volume 8.7 fL (7.4-10.4); Platelet Count 98 10x3/uL (130-400); RBC Distribution Width 15.3 % (11.5-14.5); Red Blood Cell (RBC) Count 2.67 mill/uL (4.70-6.10); White Blood Cell (WBC) Count 2.8 10x3/uL (4.8-10.8)
[2022-08-06 05:49] LABS: Albumin 3.4 g/dL (3.5-5.0); Anion Gap 10 mmol/L (10-20); BUN (Urea Nitrogen) 10 mg/dL (8.4-25.7); BUN/Creatinine Ratio 7.52; Calc. Creatinine Clearance 96 mL/min (70-130); Calcium 8.6 mg/dL (7.8-10.44); Carbon Dioxide 24 mmol/L (22-29); Chloride 107 mmol/L (98-107); Estimated GFR 64; Glucose 79 mg/dL (70-105); Phosphorus 2.9 mg/dL (2.3-4.7); Potassium 3.7 mmol/L (3.5-5.1); Sodium 137 mmol/L (136-145)
[2022-08-06 08:00] VITALS: BP 125/60; TEMP 98
[2022-08-06] MEDS: Albumin 25% 25 GM/100 ML BOT IVPB SCH (08:20)
[2022-08-06] MEDS: Rifaximin 550 MG TAB PO SCH (08:20)
[2022-08-06] MEDS: Sucralfate 1 GM TAB PO SCH (08:21)
[2022-08-06] MEDS: traMADol HCl 50 MG TAB PO PRN (08:21)
[2022-08-06] MEDS ORDERED: HYDROcodone/Acetaminophen 5/325 mg Tablet PO PRN (09:42)
[2022-08-06] MEDS ORDERED: Gabapentin 100 MG CAP PO SCH ×2 (10:00→21:00)
[2022-08-06] MEDS ORDERED: Gabapentin 300 MG CAP PO SCH (21:00)
[2022-08-06] MEDS ORDERED: Mirtazapine 15 MG TAB PO SCH (21:00)
== END 2022-08-06 14:39 | disposition home or self-care (01) | DRG 811 ==
LOC: ERS 11:10 → ERHOLD 15:48 → 2SW 20:16 → OBSVTOIN 08-02 09:10
PROVIDERS: ADMIT Family Medicine; ATTEND Family Medicine
PROC: 30233N1 Transfusion of Nonautologous Red Blood Cells into Peripheral Vein, Percutaneous Approach (ICD-10-PCS; principal; 2022-08-01)
PROC: 02HV33Z Insertion of Infusion Device into Superior Vena Cava, Percutaneous Approach (ICD-10-PCS; 2022-08-02)
PROC: B548ZZA Ultrasonography of Superior Vena Cava, Guidance (ICD-10-PCS; 2022-08-02)
PROC: 0DJ08ZZ Inspection of Upper Intestinal Tract, Via Natural or Artificial Opening Endoscopic (ICD-10-PCS; 2022-08-03)
DX: D62 Acute posthemorrhagic anemia (principal); K25.4 Chronic or unspecified gastric ulcer with hemorrhage; I13.0 Hypertensive heart and chronic kidney disease with heart failure and stage 1 through stage 4 chronic kidney disease, or unspecified chronic kidney disease; I50.32 Chronic diastolic (congestive) heart failure; N17.9 Acute kidney failure, unspecified; E87.20 Acidosis, unspecified; Z20.822 Contact with and (suspected) exposure to COVID-19; D63.1 Anemia in chronic kidney disease; E78.00 Pure hypercholesterolemia, unspecified; K70.30 Alcoholic cirrhosis of liver without ascites; K31.89 Other diseases of stomach and duodenum; N18.30 Chronic kidney disease, stage 3 unspecified; R63.0 Anorexia; Z68.31 Body mass index [BMI] 31.0-31.9, adult; Z79.899 Other long term (current) drug therapy; Z88.8 Allergy status to other drugs, medicaments and biological substances; Z96.641 Presence of right artificial hip joint; Z87.891 Personal history of nicotine dependence
CPT/HCPCS: 36415; 36430; 70450; 71045; 72125; 74176; 74177; 80048; 80053; 80069; 80306; 80307; 81003; 82140; 82570; 83735; 84100; 84300; 84484; 84540; 85025; 85046; 85610; 85730; 86850; 86900; 86901; 93005; C9113; G0378; J1642; J2354; J2704; J3490; J7050; P9016; P9047; Q9967; U0003; U0005

== ENCOUNTER 2022-09-26 12:32 | Inpatient (IN) | payer BC ==
[2022-09-26 13:15] LABS: #Basophils 0.1 thou/uL (0.0-0.2); #Eosinphils 0.5 thou/uL (0.0-0.7); #Lymphocytes 1.3 thou/uL (1.20-3.40); #Monocytes 0.6 thou/uL (0.11-0.59); #Neutrophils 5.3 thou/uL (1.40-6.50); %Eosinophils 6.1 % (0.0-10.0); %Lymphocytes 17.5 % (21.0-51.0); %Monocytes 7.1 % (0.0-10.0); %Neutrophils 68.3 % (42.0-75.0); Hemoglobin 6.6 g/dL (14.0-18.0); Mean Corpuscular HGB CONC 32.2 g/dL (32.0-36.0); Mean Corpuscular Hemoglobin 27.7 pg (27.0-31.0); Mean Corpuscular Volume 85.9 fl (78.0-98.0); Mean Platelet Volume 8.8 fL (7.4-10.4); Platelet Count 158 10x3/uL (130-400); RBC Distribution Width 14.9 % (11.5-14.5); Red Blood Cell (RBC) Count 2.39 mill/uL (4.70-6.10); White Blood Cell (WBC) Count 7.7 10x3/uL (4.8-10.8)
[2022-09-26 13:33] LABS: ALT (SGPT) 21 U/L (8-55); AST (SGOT) 47 U/L (5-34); Albumin 2.7 g/dL (3.5-5.0); Alkaline Phosphatase 173 U/L (40-110); Anion Gap 13 mmol/L (10-20); BUN (Urea Nitrogen) 35 mg/dL (8.4-25.7); Calc. Creatinine Clearance 0 mL/min (70-130); Calcium 8.7 mg/dL (7.8-10.44); Carbon Dioxide 17 mmol/L (22-29); Chloride 109 mmol/L (98-107); Estimated GFR 25; Globulin 2.6 g/dL (2.4-3.5); Glucose 125 mg/dL (70-105); Protein, Total 5.3 g/dL (6.0-8.3); Sodium 134 mmol/L (136-145)
[2022-09-26] MEDS ORDERED: Metoclopramide HCl 10 MG/2 ML VIAL ONE (17:32)
[2022-09-26 20:40] LABS: Hemoglobin 7.8 g/dL (14.0-18.0); Mean Corpuscular HGB CONC 28.4 g/dL (32.0-36.0); Mean Corpuscular Hemoglobin 25.8 pg (27.0-31.0); Mean Corpuscular Volume 90.8 fl (78.0-98.0); Mean Platelet Volume 8.9 fL (7.4-10.4); Platelet Count 127 10x3/uL (130-400); RBC Distribution Width 15.4 % (11.5-14.5); Red Blood Cell (RBC) Count 3.03 mill/uL (4.70-6.10)
[2022-09-26 21:08] LABS: Anisocytosis SLIGHT = 6-15 cells (100X) (0-5/hpf); Crenated RBC SLIGHT = 1-5 cells (100X) (None Seen); Eosinophils 5 % (0-10); Lymphocytes 17 % (21-51); MDiff Complete? YES; Monocytes 11 % (0-10); Neutrophil 67 % (42-75); Ovalocytes SLIGHT = 2-5 cells (100X) (0-1/hpf); Platelet Morphology Comment Appears Decreased; Polychromasia SLIGHT = 2-3 cells (100X) (0-2/hpf)
[2022-09-26 21:48] LABS: ALT (SGPT) 20 U/L (8-55); AST (SGOT) 47 U/L (5-34); Albumin 2.7 g/dL (3.5-5.0); Alkaline Phosphatase 133 U/L (40-110); Anion Gap 13 mmol/L (10-20); BUN (Urea Nitrogen) 33 mg/dL (8.4-25.7); Bilirubin, Total 2.7 mg/dL (0.2-1.2); Calc. Creatinine Clearance 0 mL/min (70-130); Calcium 8.3 mg/dL (7.8-10.44); Carbon Dioxide 17 mmol/L (22-29); Chloride 109 mmol/L (98-107); Estimated GFR 29; Globulin 2.6 g/dL (2.4-3.5); Glucose 76 mg/dL (70-105); Protein, Total 5.3 g/dL (6.0-8.3); Sodium 133 mmol/L (136-145)
[2022-09-26] MEDS ORDERED: Calcium Chloride 1 GM/10 ML Abboject SYRINGE ONE (22:25)
[2022-09-26 23:31] LABS: ALT (SGPT) 23 U/L (8-55); AST (SGOT) 54 U/L (5-34); Albumin 2.6 g/dL (3.5-5.0); Alkaline Phosphatase 126 U/L (40-110); Anion Gap 13 mmol/L (10-20); BUN (Urea Nitrogen) 34 mg/dL (8.4-25.7); Bilirubin, Total 3.3 mg/dL (0.2-1.2); Calc. Creatinine Clearance 0 mL/min (70-130); Calcium 8.7 mg/dL (7.8-10.44); Carbon Dioxide 17 mmol/L (22-29); Chloride 110 mmol/L (98-107); Estimated GFR 30; Globulin 2.8 g/dL (2.4-3.5); Glucose 74 mg/dL (70-105); Potassium 5.8 mmol/L (3.5-5.1); Protein, Total 5.4 g/dL (6.0-8.3); Sodium 134 mmol/L (136-145)
[2022-09-27] MEDS ORDERED: Sodium Bicarb 50 MEQ/50 ML VIAL ONE (01:42)
[2022-09-27] MEDS ORDERED: Sodium Bicarbonate 150 MEQ in Dextrose 5% in Water 1,000 ML IV SCH (02:45)
[2022-09-27] MEDS ORDERED: Pantoprazole 40 MG VIAL IVP SCH (02:45)
[2022-09-27] MEDS ORDERED: Albumin 25% 25 GM/100 ML BOT IVPB SCH (02:45)
[2022-09-27 02:58] LABS: INR-International Normal Ratio 1.1; PTT 36.9 sec (22.9-36.1); Prothrombin Time 15.1 sec (12.0-14.7)
[2022-09-27 03:11] VITALS: BMI 34.3
[2022-09-27 05:04] LABS: INR-International Normal Ratio 1.2; Prothrombin Time 15.7 sec (12.0-14.7)
[2022-09-27 05:05] LABS: PTT 37.2 sec (22.9-36.1)
[2022-09-27 05:21] LABS: #Eosinphils 0.4 thou/uL (0.0-0.7); #Lymphocytes 1.6 thou/uL (1.20-3.40); #Monocytes 0.7 thou/uL (0.11-0.59); #Neutrophils 3.7 thou/uL (1.40-6.50); %Basophils 0.6 % (0.0-1.0); %Lymphocytes 24.4 % (21.0-51.0); %Monocytes 10.5 % (0.0-10.0); %Neutrophils 58.6 % (42.0-75.0); Hemoglobin 8.1 g/dL (14.0-18.0); Mean Corpuscular HGB CONC 32.6 g/dL (32.0-36.0); Mean Corpuscular Hemoglobin 27.6 pg (27.0-31.0); Mean Corpuscular Volume 84.6 fl (78.0-98.0); Mean Platelet Volume 8.9 fL (7.4-10.4); Platelet Count 128 10x3/uL (130-400); RBC Distribution Width 15.8 % (11.5-14.5); Red Blood Cell (RBC) Count 2.94 mill/uL (4.70-6.10); White Blood Cell (WBC) Count 6.3 10x3/uL (4.8-10.8)
[2022-09-27 05:28] LABS: Anion Gap 12 mmol/L (10-20); BUN (Urea Nitrogen) 32 mg/dL (8.4-25.7); Calc. Creatinine Clearance 61 mL/min (70-130); Carbon Dioxide 19 mmol/L (22-29); Chloride 108 mmol/L (98-107); Estimated GFR 33; Glucose 112 mg/dL (70-105); Potassium 4.3 mmol/L (3.5-5.1); Sodium 135 mmol/L (136-145)
[2022-09-27] MEDS: Pantoprazole 40 MG VIAL IVP SCH ×2 (09:18→21:38)
[2022-09-27] MEDS: Sucralfate 1 GM TAB PO SCH ×3 (09:18→21:40)
[2022-09-27] MEDS: Acetaminophen 325 MG TAB PO PRN (10:11)
[2022-09-27] MEDS: Morphine 2 MG/ML VIAL SLOW IVP PRN ×2 (11:50→21:40)
[2022-09-27] MEDS: Ondansetron PF 4 MG/2 ML Vial IVP PRN (11:54)
[2022-09-27] MEDS: Sodium Bicarbonate Tab 325 MG TAB PO SCH ×2 (13:59→21:38)
[2022-09-27] MEDS: Albumin 25% 25 GM/100 ML BOT IVPB SCH ×3 (14:00→21:36)
[2022-09-27] MEDS: Mirtazapine 15 MG TAB PO SCH (21:39)
[2022-09-28 05:55] LABS: Anion Gap 10 mmol/L (10-20); BUN (Urea Nitrogen) 29 mg/dL (8.4-25.7); Calc. Creatinine Clearance 55 mL/min (70-130); Calcium 8.2 mg/dL (7.8-10.44); Carbon Dioxide 24 mmol/L (22-29); Chloride 104 mmol/L (98-107); Estimated GFR 30; Glucose 93 mg/dL (70-105); Sodium 134 mmol/L (136-145)
[2022-09-28 06:06] LABS: #Eosinphils 0.2 thou/uL (0.0-0.7); #Lymphocytes 1.1 thou/uL (1.20-3.40); #Monocytes 0.5 thou/uL (0.11-0.59); #Neutrophils 2.1 thou/uL (1.40-6.50); %Basophils 0.9 % (0.0-1.0); %Eosinophils 5.6 % (0.0-10.0); %Lymphocytes 26.9 % (21.0-51.0); %Monocytes 13.5 % (0.0-10.0); %Neutrophils 53.1 % (42.0-75.0); Hemoglobin 6.9 g/dL (14.0-18.0); Mean Corpuscular HGB CONC 32.5 g/dL (32.0-36.0); Mean Corpuscular Hemoglobin 27.7 pg (27.0-31.0); Mean Corpuscular Volume 85.2 fl (78.0-98.0); Platelet Count 90 10x3/uL (130-400); Platelet Morphology Comment Appears Decreased; RBC Distribution Width 15.6 % (11.5-14.5); Red Blood Cell (RBC) Count 2.47 mill/uL (4.70-6.10); White Blood Cell (WBC) Count 3.9 10x3/uL (4.8-10.8)
[2022-09-28] MEDS: Albumin 25% 25 GM/100 ML BOT IVPB SCH ×4 (09:24→23:11)
[2022-09-28] MEDS: Sodium Bicarbonate Tab 325 MG TAB PO SCH ×3 (09:25→20:57)
[2022-09-28] MEDS: Sucralfate 1 GM TAB PO SCH ×3 (09:25→20:55)
[2022-09-28] MEDS: Pantoprazole 40 MG VIAL IVP SCH ×2 (09:33→20:56)
[2022-09-28 12:22] LABS: Bacteria/HPF None Seen HPF (None Seen); Bilirubin Negative (Negative); Blood, Urine Negative (Negative); Clarity Clear (Clear); Glucose, Urine (Dipstick) Normal (Negative); Ketone, Urine Negative (Negative); Leukocyte Negative Leu/uL (Negative); Nitrite Negative (Negative); Protein, Urine (Dipstick) Negative (Neg-Trace); RBC/HPF None Seen HPF (0-3); Specific Gravity, Urine 1.011 (1.002-1.036); Squamous Epithelial None Seen HPF (0-3); Urobilinogen Normal mg/dL (Less than 2); WBC/HPF 0-3 HPF (0-3); pH, Urine 5.5 (5.0-9.0)
[2022-09-28] MEDS ORDERED: ALPRAZolam 0.5 MG TAB PO PRN (12:57)
[2022-09-28 13:03] LABS: Protein, Urine Random Quant Less than 10 mg/dL (1-14); Sodium, Urine 34 mmol/L (Not Available); Urea Nitrogen, Random Urine 383 mg/dl
[2022-09-28] MEDS: Morphine 2 MG/ML VIAL SLOW IVP PRN (15:20)
[2022-09-28] MEDS: Ondansetron PF 4 MG/2 ML Vial IVP PRN (15:20)
[2022-09-28] MEDS: Gabapentin 100 MG CAP PO SCH (20:55)
[2022-09-28] MEDS: Mirtazapine 15 MG TAB PO SCH (20:56)
[2022-09-28] MEDS: Nystatin Cream 15 GM TUBE TOP SCH (20:56)
[2022-09-29 04:42] LABS: #Eosinphils 0.2 thou/uL (0.0-0.7); #Monocytes 0.4 thou/uL (0.11-0.59); #Neutrophils 2.2 thou/uL (1.40-6.50); %Basophils 0.7 % (0.0-1.0); %Eosinophils 5.1 % (0.0-10.0); %Lymphocytes 25.9 % (21.0-51.0); %Monocytes 10.4 % (0.0-10.0); Hemoglobin 7.9 g/dL (14.0-18.0); Mean Corpuscular HGB CONC 32.3 g/dL (32.0-36.0); Mean Corpuscular Hemoglobin 28.2 pg (27.0-31.0); Mean Corpuscular Volume 87.2 fl (78.0-98.0); Mean Platelet Volume 9.2 fL (7.4-10.4); Platelet Count 107 10x3/uL (130-400); RBC Distribution Width 15.8 % (11.5-14.5); White Blood Cell (WBC) Count 3.8 10x3/uL (4.8-10.8)
[2022-09-29 05:10] LABS: ALT (SGPT) 15 U/L (8-55); AST (SGOT) 43 U/L (5-34); Albumin 4.1 g/dL (3.5-5.0); Alkaline Phosphatase 85 U/L (40-110); Anion Gap 13 mmol/L (10-20); BUN (Urea Nitrogen) 27 mg/dL (8.4-25.7); Bilirubin, Total 1.6 mg/dL (0.2-1.2); Calc. Creatinine Clearance 59 mL/min (70-130); Calcium 8.9 mg/dL (7.8-10.44); Carbon Dioxide 22 mmol/L (22-29); Chloride 106 mmol/L (98-107); Estimated GFR 32; Globulin 2.1 g/dL (2.4-3.5); Glucose 101 mg/dL (70-105); Magnesium 2.1 mg/dL (1.6-2.6); Potassium 4.2 mmol/L (3.5-5.1); Protein, Total 6.2 g/dL (6.0-8.3); Sodium 137 mmol/L (136-145)
[2022-09-29] MEDS: Gabapentin 100 MG CAP PO SCH ×2 (10:37→21:47)
[2022-09-29] MEDS: Sucralfate 1 GM TAB PO SCH ×3 (10:37→21:41)
[2022-09-29] MEDS: Pantoprazole 40 MG VIAL IVP SCH ×2 (10:38→21:41)
[2022-09-29] MEDS: Nystatin Cream 15 GM TUBE TOP SCH (10:38)
[2022-09-29] MEDS: Sodium Bicarbonate Tab 325 MG TAB PO SCH ×3 (10:38→21:40)
[2022-09-29] MEDS: Rifaximin 550 MG TAB PO SCH ×2 (10:38→21:40)
[2022-09-29] MEDS: Albumin 25% 25 GM/100 ML BOT IVPB SCH ×2 (16:30→21:53)
[2022-09-29] MEDS: Morphine 2 MG/ML VIAL SLOW IVP PRN (16:37)
[2022-09-29] MEDS: Ondansetron PF 4 MG/2 ML Vial IVP PRN (16:38)
[2022-09-29] MEDS ORDERED: Iron, Sodium Ferric Gluconate 250 MG in Sodium Chloride 0.9% 250 ML 250 ML IVPB SCH (17:00)
[2022-09-29] MEDS ORDERED: EPOETIN ALFA-EPBX (ESRD) 10,000 UNIT/ML VIAL SC SCH (17:15)
[2022-09-29] MEDS: Mirtazapine 15 MG TAB PO SCH (21:41)
[2022-09-30] MEDS: Nystatin Cream 15 GM TUBE TOP SCH ×3 (01:25→20:30)
[2022-09-30] MEDS: Morphine 2 MG/ML VIAL SLOW IVP PRN ×2 (02:18→16:25)
[2022-09-30] MEDS: Albumin 25% 25 GM/100 ML BOT IVPB SCH ×5 (04:36→23:20)
[2022-09-30 05:22] LABS: #Eosinphils 0.2 thou/uL (0.0-0.7); #Lymphocytes 0.9 thou/uL (1.20-3.40); #Monocytes 0.5 thou/uL (0.11-0.59); #Neutrophils 1.9 thou/uL (1.40-6.50); %Basophils 0.9 % (0.0-1.0); %Eosinophils 5.3 % (0.0-10.0); %Lymphocytes 26.3 % (21.0-51.0); %Monocytes 13.2 % (0.0-10.0); %Neutrophils 54.3 % (42.0-75.0); Hemoglobin 6.8 g/dL (14.0-18.0); Mean Corpuscular HGB CONC 32.4 g/dL (32.0-36.0); Mean Corpuscular Hemoglobin 28.5 pg (27.0-31.0); Mean Corpuscular Volume 87.8 fl (78.0-98.0); Mean Platelet Volume 9.2 fL (7.4-10.4); Platelet Count 86 10x3/uL (130-400); RBC Distribution Width 16.5 % (11.5-14.5); Red Blood Cell (RBC) Count 2.38 mill/uL (4.70-6.10); White Blood Cell (WBC) Count 3.5 10x3/uL (4.8-10.8)
[2022-09-30 05:33] LABS: ALT (SGPT) 13 U/L (8-55); AST (SGOT) 38 U/L (5-34); Albumin 3.4 g/dL (3.5-5.0); Alkaline Phosphatase 114 U/L (40-110); Anion Gap 12 mmol/L (10-20); BUN (Urea Nitrogen) 19 mg/dL (8.4-25.7); Bilirubin, Total 1.3 mg/dL (0.2-1.2); Calc. Creatinine Clearance 74 mL/min (70-130); Calcium 8.6 mg/dL (7.8-10.44); Carbon Dioxide 22 mmol/L (22-29); Chloride 111 mmol/L (98-107); Estimated GFR 42; Glucose 124 mg/dL (70-105); Magnesium 2.1 mg/dL (1.6-2.6); Protein, Total 5.4 g/dL (6.0-8.3); Sodium 141 mmol/L (136-145)
[2022-09-30] MEDS: Sucralfate 1 GM TAB PO SCH ×3 (08:41→20:25)
[2022-09-30] MEDS: Gabapentin 100 MG CAP PO SCH ×2 (08:41→20:39)
[2022-09-30] MEDS: Pantoprazole 40 MG VIAL IVP SCH ×2 (08:42→20:25)
[2022-09-30] MEDS: Rifaximin 550 MG TAB PO SCH ×2 (08:43→20:25)
[2022-09-30] MEDS: Sodium Bicarbonate Tab 325 MG TAB PO SCH ×3 (08:50→20:24)
[2022-09-30] MEDS: traMADol HCl 50 MG TAB PO PRN (12:40)
[2022-09-30] MEDS: Acetaminophen 325 MG TAB PO PRN (12:40)
[2022-09-30] MEDS: Mirtazapine 15 MG TAB PO SCH (20:26)
[2022-10-01 05:05] LABS: #Eosinphils 0.2 thou/uL (0.0-0.7); #Lymphocytes 0.7 thou/uL (1.20-3.40); #Monocytes 0.4 thou/uL (0.11-0.59); %Basophils 0.7 % (0.0-1.0); %Eosinophils 5.9 % (0.0-10.0); %Lymphocytes 21.8 % (21.0-51.0); %Monocytes 12.4 % (0.0-10.0); %Neutrophils 59.2 % (42.0-75.0); Hemoglobin 7.1 g/dL (14.0-18.0); Mean Corpuscular Hemoglobin 29.2 pg (27.0-31.0); Mean Corpuscular Volume 88.5 fl (78.0-98.0); Mean Platelet Volume 9.3 fL (7.4-10.4); Platelet Count 88 10x3/uL (130-400); Red Blood Cell (RBC) Count 2.43 mill/uL (4.70-6.10); White Blood Cell (WBC) Count 3.4 10x3/uL (4.8-10.8)
[2022-10-01 05:25] LABS: ALT (SGPT) 13 U/L (8-55); AST (SGOT) 35 U/L (5-34); Albumin 3.9 g/dL (3.5-5.0); Alkaline Phosphatase 97 U/L (40-110); Anion Gap 12 mmol/L (10-20); BUN (Urea Nitrogen) 13 mg/dL (8.4-25.7); Bilirubin, Total 1.7 mg/dL (0.2-1.2); Calc. Creatinine Clearance 89 mL/min (70-130); Carbon Dioxide 23 mmol/L (22-29); Chloride 111 mmol/L (98-107); Estimated GFR 53; Globulin 1.7 g/dL (2.4-3.5); Glucose 99 mg/dL (70-105); Potassium 4.1 mmol/L (3.5-5.1); Protein, Total 5.6 g/dL (6.0-8.3); Sodium 142 mmol/L (136-145)
[2022-10-01] MEDS: Albumin 25% 25 GM/100 ML BOT IVPB SCH ×2 (05:57→16:53)
[2022-10-01] MEDS: Sucralfate 1 GM TAB PO SCH ×3 (09:30→22:20)
[2022-10-01] MEDS: Sodium Bicarbonate Tab 325 MG TAB PO SCH ×3 (09:30→22:32)
[2022-10-01] MEDS: Rifaximin 550 MG TAB PO SCH ×2 (09:30→22:02)
[2022-10-01] MEDS: Gabapentin 100 MG CAP PO SCH ×2 (09:30→22:01)
[2022-10-01] MEDS: Nystatin Cream 15 GM TUBE TOP SCH ×2 (09:30→22:03)
[2022-10-01] MEDS: Pantoprazole 40 MG VIAL IVP SCH ×2 (11:03→22:26)
[2022-10-01] MEDS ORDERED: Furosemide 40 MG TAB PO SCH (11:15)
[2022-10-01] MEDS ORDERED: Ketamine 50 MG/ML (10ML VIAL) ONE (13:46)
[2022-10-01] MEDS ORDERED: Ondansetron HCl/PF 4 MG/2 ML Vial IVP PRN (14:04)
[2022-10-01] MEDS ORDERED: Promethazine HCl 25 MG/ML VIAL IM PRN (14:04)
[2022-10-01] MEDS ORDERED: Acetaminophen 500 MG TAB ONE (14:31)
[2022-10-01] MEDS: Acetaminophen 325 MG TAB PO PRN (14:32)
[2022-10-01] MEDS ORDERED: traMADol HCl 50 MG TAB ONE (14:44)
[2022-10-01] MEDS: traMADol HCl 50 MG TAB PO PRN (14:45)
[2022-10-01] MEDS: Morphine 2 MG/ML VIAL SLOW IVP PRN (16:52)
[2022-10-01] MEDS: Ondansetron PF 4 MG/2 ML Vial IVP PRN (16:52)
[2022-10-01] MEDS ORDERED: Furosemide 20 MG/2 ML VIAL SLOW IVP SCH (20:30)
[2022-10-01] MEDS: Mirtazapine 15 MG TAB PO SCH (22:03)
[2022-10-02] MEDS: Albumin 25% 25 GM/100 ML BOT IVPB SCH ×4 (00:21→11:50)
[2022-10-02] MEDS: Morphine 2 MG/ML VIAL SLOW IVP PRN ×4 (00:39→22:26)
[2022-10-02 04:48] LABS: #Eosinphils 0.3 thou/uL (0.0-0.7); #Lymphocytes 0.9 thou/uL (1.20-3.40); #Monocytes 0.5 thou/uL (0.11-0.59); #Neutrophils 2.5 thou/uL (1.40-6.50); %Basophils 0.8 % (0.0-1.0); %Monocytes 12.3 % (0.0-10.0); %Neutrophils 59.9 % (42.0-75.0); Hemoglobin 7.3 g/dL (14.0-18.0); Mean Corpuscular HGB CONC 32.7 g/dL (32.0-36.0); Mean Corpuscular Volume 88.8 fl (78.0-98.0); Platelet Count 96 10x3/uL (130-400); RBC Distribution Width 17.5 % (11.5-14.5); Red Blood Cell (RBC) Count 2.52 mill/uL (4.70-6.10); White Blood Cell (WBC) Count 4.2 10x3/uL (4.8-10.8)
[2022-10-02 05:16] LABS: ALT (SGPT) 12 U/L (8-55); AST (SGOT) 35 U/L (5-34); Albumin 4.2 g/dL (3.5-5.0); Alkaline Phosphatase 71 U/L (40-110); Anion Gap 14 mmol/L (10-20); BUN (Urea Nitrogen) 13 mg/dL (8.4-25.7); Bilirubin, Total 2.2 mg/dL (0.2-1.2); Calc. Creatinine Clearance 88 mL/min (70-130); Calcium 9.4 mg/dL (7.8-10.44); Carbon Dioxide 24 mmol/L (22-29); Chloride 109 mmol/L (98-107); Estimated GFR 52; Globulin 1.7 g/dL (2.4-3.5); Glucose 89 mg/dL (70-105); Magnesium 1.7 mg/dL (1.6-2.6); Potassium 3.8 mmol/L (3.5-5.1); Protein, Total 5.9 g/dL (6.0-8.3); Sodium 143 mmol/L (136-145)
[2022-10-02] MEDS ORDERED: Furosemide 40 MG TAB PO SCH (07:30)
[2022-10-02] MEDS: Nystatin Cream 15 GM TUBE TOP SCH ×2 (09:00→21:01)
[2022-10-02] MEDS: Sucralfate 1 GM TAB PO SCH ×3 (09:19→20:56)
[2022-10-02] MEDS: Sodium Bicarbonate Tab 325 MG TAB PO SCH ×3 (09:19→20:56)
[2022-10-02] MEDS: Rifaximin 550 MG TAB PO SCH ×2 (09:20→20:56)
[2022-10-02] MEDS: Gabapentin 100 MG CAP PO SCH ×2 (09:20→20:56)
[2022-10-02] MEDS: Pantoprazole 40 MG VIAL IVP SCH ×2 (09:21→20:56)
[2022-10-02] MEDS ORDERED: Spironolactone 25 MG TAB PO SCH (10:00)
[2022-10-02] MEDS ORDERED: Benzocaine (Dental) 7 GM TUBE TOP PRN (12:20)
[2022-10-02] MEDS: traMADol HCl 50 MG TAB PO PRN (16:40)
[2022-10-02] MEDS: Acetaminophen 325 MG TAB PO PRN ×2 (16:40→21:11)
[2022-10-03 05:15] LABS: #Eosinphils 0.2 thou/uL (0.0-0.7); #Monocytes 0.4 thou/uL (0.11-0.59); #Neutrophils 2.3 thou/uL (1.40-6.50); %Basophils 0.9 % (0.0-1.0); %Eosinophils 5.6 % (0.0-10.0); %Lymphocytes 24.4 % (21.0-51.0); %Monocytes 11.3 % (0.0-10.0); %Neutrophils 57.8 % (42.0-75.0); Hemoglobin 7.7 g/dL (14.0-18.0); Mean Corpuscular HGB CONC 32.2 g/dL (32.0-36.0); Mean Corpuscular Volume 89.9 fl (78.0-98.0); Mean Platelet Volume 8.8 fL (7.4-10.4); Platelet Count 101 10x3/uL (130-400); RBC Distribution Width 17.9 % (11.5-14.5); Red Blood Cell (RBC) Count 2.65 mill/uL (4.70-6.10); White Blood Cell (WBC) Count 3.9 10x3/uL (4.8-10.8)
[2022-10-03 05:39] LABS: ALT (SGPT) 12 U/L (8-55); AST (SGOT) 35 U/L (5-34); Albumin 4.3 g/dL (3.5-5.0); Alkaline Phosphatase 61 U/L (40-110); Anion Gap 16 mmol/L (10-20); BUN (Urea Nitrogen) 13 mg/dL (8.4-25.7); Bilirubin, Total 2.7 mg/dL (0.2-1.2); Calc. Creatinine Clearance 80 mL/min (70-130); Calcium 9.7 mg/dL (7.8-10.44); Carbon Dioxide 21 mmol/L (22-29); Chloride 107 mmol/L (98-107); Estimated GFR 46; Globulin 1.8 g/dL (2.4-3.5); Glucose 84 mg/dL (70-105); Magnesium 1.7 mg/dL (1.6-2.6); Potassium 3.9 mmol/L (3.5-5.1); Protein, Total 6.1 g/dL (6.0-8.3); Sodium 140 mmol/L (136-145)
[2022-10-03] MEDS ORDERED: Spironolactone 25 MG TAB PO SCH (08:00)
[2022-10-03 08:19] VITALS: BP 117/57; TEMP 97.5
[2022-10-03] MEDS: Morphine 2 MG/ML VIAL SLOW IVP PRN (10:13)
[2022-10-03] MEDS: Pantoprazole 40 MG VIAL IVP SCH (10:14)
[2022-10-03] MEDS: Sodium Bicarbonate Tab 325 MG TAB PO SCH (10:15)
[2022-10-03] MEDS: Gabapentin 100 MG CAP PO SCH (10:16)
[2022-10-03] MEDS: Sucralfate 1 GM TAB PO SCH (10:16)
[2022-10-03] MEDS: Rifaximin 550 MG TAB PO SCH (10:16)
[2022-10-03] MEDS: Nystatin Cream 15 GM TUBE TOP SCH (11:33)
== END 2022-10-03 14:00 | disposition home or self-care (01) | DRG 441 ==
LOC: ERS 12:32 → 2NO 09-27 01:01
PROVIDERS: ADMIT Internal Medicine; ATTEND Family Medicine
PROC: 30233N1 Transfusion of Nonautologous Red Blood Cells into Peripheral Vein, Percutaneous Approach (ICD-10-PCS; principal; 2022-09-27)
PROC: 0DJ08ZZ Inspection of Upper Intestinal Tract, Via Natural or Artificial Opening Endoscopic (ICD-10-PCS; 2022-10-01)
DX: K76.82 Hepatic encephalopathy (principal); K72.00 Acute and subacute hepatic failure without coma; K76.7 Hepatorenal syndrome; K92.2 Gastrointestinal hemorrhage, unspecified; N17.9 Acute kidney failure, unspecified; E87.20 Acidosis, unspecified; I13.0 Hypertensive heart and chronic kidney disease with heart failure and stage 1 through stage 4 chronic kidney disease, or unspecified chronic kidney disease; I50.32 Chronic diastolic (congestive) heart failure; D62 Acute posthemorrhagic anemia; K70.30 Alcoholic cirrhosis of liver without ascites; E87.5 Hyperkalemia; N18.30 Chronic kidney disease, stage 3 unspecified; Z96.641 Presence of right artificial hip joint; D63.1 Anemia in chronic kidney disease; E78.00 Pure hypercholesterolemia, unspecified; F41.9 Anxiety disorder, unspecified; F32.A Depression, unspecified; D75.838 Other thrombocytosis; K29.00 Acute gastritis without bleeding; Z88.8 Allergy status to other drugs, medicaments and biological substances; Z79.899 Other long term (current) drug therapy; Z79.01 Long term (current) use of anticoagulants; Z87.891 Personal history of nicotine dependence
CPT/HCPCS: 36415; 36430; 71045; 80048; 80053; 81001; 82570; 83735; 84156; 84300; 84540; 85025; 85610; 85730; 86850; 86900; 86901; 93005; 93010; 96361; 96365; 96375; C9113; J1940; J2272; J2405; J2765; J2916; J7050; J7070; P9016; P9047; Q5105; U0003; U0005

== ENCOUNTER 2023-03-10 04:15 | Inpatient (IN) | payer BC ==
[2023-03-10 05:03] LABS: #Basophils 0.1 thou/uL (0.0-0.2); #Eosinphils 0.1 thou/uL (0.0-0.7); #Monocytes 1.1 thou/uL (0.11-0.59); #Neutrophils 6.6 thou/uL (1.40-6.50); %Basophils 0.7 % (0.0-1.0); %Eosinophils 1.3 % (0.0-10.0); %Lymphocytes 17.4 % (21.0-51.0); %Monocytes 11.6 % (0.0-10.0); %Neutrophils 68.8 % (42.0-75.0); Hematocrit 27.1 % (42.0-52.0); Hemoglobin 8.9 g/dL (14.0-18.0); Mean Corpuscular HGB CONC 32.8 g/dL (32.0-36.0); Mean Corpuscular Volume 97.5 fl (78.0-98.0); Mean Platelet Volume 10.9 fL (7.4-10.4); Platelet Count 129 10x3/uL (130-400); RBC Distribution Width 16.4 % (11.5-14.5); Red Blood Cell (RBC) Count 2.78 mill/uL (4.70-6.10); White Blood Cell (WBC) Count 9.6 10x3/uL (4.8-10.8)
[2023-03-10 05:41] LABS: ALT (SGPT) 25 U/L (8-55); AST (SGOT) 53 U/L (5-34); Albumin 2.9 g/dL (3.5-5.0); Alkaline Phosphatase 96 U/L (40-110); Anion Gap 13 mmol/L (10-20); BUN (Urea Nitrogen) 45 mg/dL (8.4-25.7); Bilirubin, Total 1.4 mg/dL (0.2-1.2); Calc. Creatinine Clearance 0 mL/min (70-130); Calcium 9.3 mg/dL (7.8-10.44); Carbon Dioxide 22 mmol/L (22-29); Chloride 108 mmol/L (98-107); Estimated GFR 48; Globulin 2.9 g/dL (2.4-3.5); Glucose 102 mg/dL (70-105); Protein, Total 5.8 g/dL (6.0-8.3); Sodium 139 mmol/L (136-145)
[2023-03-10 05:44] LABS: Troponin I 0.535 ng/mL (< 0.028)
[2023-03-10 08:06] LABS: Hemoglobin 8.4 g/dL (14.0-18.0)
[2023-03-10] MEDS ORDERED: Pantoprazole 80 MG in Sodium Chloride 0.9% 100 ML IVPB SCH (08:15)
[2023-03-10] MEDS ORDERED: Pantoprazole 40 MG VIAL IVP SCH (08:30)
[2023-03-10 08:35] LABS: Troponin I 0.411 ng/mL (< 0.028)
[2023-03-10] MEDS ORDERED: Ondansetron PF 4 MG/2 ML Vial IVP PRN (08:45)
[2023-03-10] MEDS: Sodium Chloride 0.9% 1,000 ML IV SCH ×2 (10:26→21:36)
[2023-03-10 11:06] VITALS: BMI 33.3
[2023-03-10 11:52] LABS: Hematocrit 24.4 % (42.0-52.0)
[2023-03-10 12:07] LABS: Critical Call Chem Troponin I DECREASE; Troponin I 0.284 ng/mL (< 0.028)
[2023-03-10 15:39] LABS: Hematocrit 25.8 % (42.0-52.0); Hemoglobin 8.2 g/dL (14.0-18.0)
[2023-03-10] MEDS: traMADol HCl 50 MG TAB PO PRN (16:03)
[2023-03-10] MEDS: Acetaminophen 325 MG TAB PO PRN (16:03)
[2023-03-10] MEDS ORDERED: Fentanyl 100 MCG/2 ML VIAL SLOW IVP PRN (16:38)
[2023-03-10 20:00] LABS: Hematocrit 23.6 % (42.0-52.0); Hemoglobin 7.8 g/dL (14.0-18.0)
[2023-03-10] MEDS ORDERED: Rifaximin 550 MG TAB PO SCH (21:00)
[2023-03-10] MEDS ORDERED: Morphine 4 MG/ML VIAL SLOW IVP SCH (21:15)
[2023-03-10] MEDS: Rifaximin 200 MG TAB PO SCH (21:34)
[2023-03-10] MEDS: Pantoprazole 80 MG, Admixture Fee 1 EACH in Sodium Chloride 0.9% 100 ML IVPB SCH (21:36)
[2023-03-10] MEDS ORDERED: Melatonin 3 MG TAB PO PRN (23:42)
[2023-03-10 23:58] LABS: Hematocrit 23.8 % (42.0-52.0); Hemoglobin 7.7 g/dL (14.0-18.0)
[2023-03-11] MEDS: traMADol HCl 50 MG TAB PO PRN (00:09)
[2023-03-11 04:43] LABS: #Eosinphils 0.2 thou/uL (0.0-0.7); #Monocytes 0.7 thou/uL (0.11-0.59); #Neutrophils 3.1 thou/uL (1.40-6.50); %Basophils 0.7 % (0.0-1.0); %Eosinophils 4.2 % (0.0-10.0); %Lymphocytes 28.3 % (21.0-51.0); %Monocytes 12.3 % (0.0-10.0); %Neutrophils 54.1 % (42.0-75.0); Hematocrit 19.4 % (42.0-52.0); Hemoglobin 6.3 g/dL (14.0-18.0); Mean Corpuscular HGB CONC 32.5 g/dL (32.0-36.0); Mean Corpuscular Hemoglobin 32.3 pg (27.0-31.0); Mean Corpuscular Volume 99.5 fl (78.0-98.0); Mean Platelet Volume 11.2 fL (7.4-10.4); RBC Distribution Width 16.2 % (11.5-14.5); Red Blood Cell (RBC) Count 1.95 mill/uL (4.70-6.10); White Blood Cell (WBC) Count 5.7 10x3/uL (4.8-10.8)
[2023-03-11 04:49] LABS: Platelet Count 83 10x3/uL (130-400)
[2023-03-11 05:01] LABS: INR-International Normal Ratio 1.3; Prothrombin Time 17.2 sec (12.0-14.7)
[2023-03-11 05:19] LABS: Anion Gap 10 mmol/L (10-20); BUN (Urea Nitrogen) 36 mg/dL (8.4-25.7); Calc. Creatinine Clearance 81 mL/min (70-130); Calcium 7.8 mg/dL (7.8-10.44); Carbon Dioxide 18 mmol/L (22-29); Chloride 110 mmol/L (98-107); Estimated GFR 48; Glucose 95 mg/dL (70-105); Potassium 3.8 mmol/L (3.5-5.1); Sodium 134 mmol/L (136-145)
[2023-03-11] MEDS: Pantoprazole 80 MG, Admixture Fee 1 EACH in Sodium Chloride 0.9% 100 ML IVPB SCH ×2 (09:24→20:21)
[2023-03-11] MEDS: fentaNYL 50 mcg/mL 1 mL Vial SLOW IVP PRN ×4 (09:25→22:19)
[2023-03-11] MEDS: Rifaximin 200 MG TAB PO SCH ×2 (09:25→20:20)
[2023-03-11 17:13] LABS: Hematocrit 23.4 % (42.0-52.0); Hemoglobin 7.7 g/dL (14.0-18.0)
[2023-03-11] MEDS: Sodium Chloride 0.9% 1,000 ML IV SCH (17:22)
[2023-03-12] MEDS: traMADol HCl 50 MG TAB PO PRN ×2 (00:15→19:40)
[2023-03-12] MEDS: ALPRAZolam 0.5 MG TAB PO PRN ×2 (00:15→20:56)
[2023-03-12] MEDS: Sodium Chloride 0.9% 1,000 ML IV SCH ×2 (00:15→17:08)
[2023-03-12] MEDS: fentaNYL 50 mcg/mL 1 mL Vial SLOW IVP PRN ×5 (01:37→20:57)
[2023-03-12 04:24] LABS: #Eosinphils 0.2 thou/uL (0.0-0.7); #Monocytes 0.4 thou/uL (0.11-0.59); #Neutrophils 1.9 thou/uL (1.40-6.50); %Basophils 0.8 % (0.0-1.0); %Eosinophils 4.8 % (0.0-10.0); %Lymphocytes 28.2 % (21.0-51.0); %Monocytes 11.6 % (0.0-10.0); %Neutrophils 54.6 % (42.0-75.0); Hematocrit 20.7 % (42.0-52.0); Hemoglobin 6.8 g/dL (14.0-18.0); Mean Corpuscular HGB CONC 32.9 g/dL (32.0-36.0); Mean Corpuscular Hemoglobin 31.9 pg (27.0-31.0); Mean Corpuscular Volume 97.2 fl (78.0-98.0); Mean Platelet Volume 10.2 fL (7.4-10.4); RBC Distribution Width 17.7 % (11.5-14.5); Red Blood Cell (RBC) Count 2.13 mill/uL (4.70-6.10); White Blood Cell (WBC) Count 3.5 10x3/uL (4.8-10.8)
[2023-03-12 04:33] LABS: Platelet Count 80 10x3/uL (130-400)
[2023-03-12 04:45] LABS: ALT (SGPT) 20 U/L (8-55); AST (SGOT) 46 U/L (5-34); Albumin 2.4 g/dL (3.5-5.0); Alkaline Phosphatase 60 U/L (40-110); Anion Gap 9 mmol/L (10-20); BUN (Urea Nitrogen) 19 mg/dL (8.4-25.7); Bilirubin, Total 2.3 mg/dL (0.2-1.2); Calc. Creatinine Clearance 95 mL/min (70-130); Calcium 7.9 mg/dL (7.8-10.44); Carbon Dioxide 20 mmol/L (22-29); Chloride 112 mmol/L (98-107); Estimated GFR 59; Globulin 2.1 g/dL (2.4-3.5); Glucose 90 mg/dL (70-105); Potassium 3.3 mmol/L (3.5-5.1); Protein, Total 4.5 g/dL (6.0-8.3); Sodium 138 mmol/L (136-145)
[2023-03-12] MEDS: Pantoprazole 80 MG, Admixture Fee 1 EACH in Sodium Chloride 0.9% 100 ML IVPB SCH ×2 (06:07→17:28)
[2023-03-12] MEDS: Rifaximin 200 MG TAB PO SCH ×2 (09:50→20:56)
[2023-03-12 20:07] LABS: Hematocrit 24.4 % (42.0-52.0); Hemoglobin 8.1 g/dL (14.0-18.0)
[2023-03-13] MEDS: Morphine 4 MG/ML VIAL SLOW IVP PRN ×4 (01:07→17:19)
[2023-03-13] MEDS: Pantoprazole 80 MG, Admixture Fee 1 EACH in Sodium Chloride 0.9% 100 ML IVPB SCH ×2 (02:40→17:20)
[2023-03-13] MEDS: Sodium Chloride 0.9% 1,000 ML IV SCH ×2 (02:40→17:19)
[2023-03-13] MEDS: traMADol HCl 50 MG TAB PO PRN ×3 (05:05→20:56)
[2023-03-13 08:00] LABS: #Eosinphils 0.1 thou/uL (0.0-0.7); #Monocytes 0.4 thou/uL (0.11-0.59); #Neutrophils 1.2 thou/uL (1.40-6.50); %Basophils 0.8 % (0.0-1.0); %Eosinophils 5.3 % (0.0-10.0); %Lymphocytes 33.7 % (21.0-51.0); %Monocytes 15.2 % (0.0-10.0); Hematocrit 21.4 % (42.0-52.0); Hemoglobin 7.1 g/dL (14.0-18.0); Mean Corpuscular HGB CONC 33.2 g/dL (32.0-36.0); Mean Corpuscular Hemoglobin 32.6 pg (27.0-31.0); Mean Corpuscular Volume 98.2 fl (78.0-98.0); Mean Platelet Volume 10.7 fL (7.4-10.4); RBC Distribution Width 17.2 % (11.5-14.5); Red Blood Cell (RBC) Count 2.18 mill/uL (4.70-6.10); White Blood Cell (WBC) Count 2.6 10x3/uL (4.8-10.8)
[2023-03-13 08:02] LABS: Platelet Count 75 10x3/uL (130-400)
[2023-03-13] MEDS: Rifaximin 200 MG TAB PO SCH ×2 (08:53→20:56)
[2023-03-13] MEDS ORDERED: GoLYTELY 4,000 ml Bottle PO SCH (18:00)
[2023-03-13] MEDS: ALPRAZolam 0.5 MG TAB PO PRN (18:24)
[2023-03-14] MEDS: Morphine 4 MG/ML VIAL SLOW IVP PRN ×4 (00:19→20:19)
[2023-03-14] MEDS: Pantoprazole 80 MG, Admixture Fee 1 EACH in Sodium Chloride 0.9% 100 ML IVPB SCH ×2 (03:36→18:12)
[2023-03-14] MEDS: traMADol HCl 50 MG TAB PO PRN ×3 (03:36→18:14)
[2023-03-14 04:50] LABS: #Eosinphils 0.1 thou/uL (0.0-0.7); #Monocytes 0.3 thou/uL (0.11-0.59); #Neutrophils 1.3 thou/uL (1.40-6.50); %Basophils 0.8 % (0.0-1.0); %Eosinophils 5.3 % (0.0-10.0); %Lymphocytes 33.8 % (21.0-51.0); %Monocytes 12.2 % (0.0-10.0); %Neutrophils 47.9 % (42.0-75.0); Hematocrit 21.7 % (42.0-52.0); Hemoglobin 7.3 g/dL (14.0-18.0); Mean Corpuscular HGB CONC 33.6 g/dL (32.0-36.0); Mean Corpuscular Hemoglobin 32.2 pg (27.0-31.0); Mean Corpuscular Volume 95.6 fl (78.0-98.0); Mean Platelet Volume 11.1 fL (7.4-10.4); RBC Distribution Width 16.7 % (11.5-14.5); Red Blood Cell (RBC) Count 2.27 mill/uL (4.70-6.10); White Blood Cell (WBC) Count 2.6 10x3/uL (4.8-10.8)
[2023-03-14 05:43] LABS: Platelet Count 88 10x3/uL (130-400)
[2023-03-14] MEDS: ALPRAZolam 0.5 MG TAB PO PRN (07:57)
[2023-03-14] MEDS ORDERED: fentaNYL 50 mcg/mL 1 mL Vial ONE (10:16)
[2023-03-14] MEDS ORDERED: Ondansetron HCl/PF 4 MG/2 ML Vial IVP PRN (10:39)
[2023-03-14] MEDS ORDERED: Promethazine HCl 25 MG/ML VIAL IM PRN (10:39)
[2023-03-14] MEDS ORDERED: PROPOFOL 200 MG/20 ML VIAL ONE (10:47)
[2023-03-14] MEDS: Rifaximin 200 MG TAB PO SCH ×2 (11:22→20:18)
[2023-03-14] MEDS: Sodium Chloride 0.9% 1,000 ML IV SCH (12:57)
[2023-03-14] MEDS: Acetaminophen 325 MG TAB PO PRN (18:15)
[2023-03-15] MEDS: Morphine 4 MG/ML VIAL SLOW IVP PRN ×2 (00:46→06:03)
[2023-03-15] MEDS: ALPRAZolam 0.5 MG TAB PO PRN ×2 (00:52→11:43)
[2023-03-15] MEDS: Sodium Chloride 0.9% 1,000 ML IV SCH (03:51)
[2023-03-15] MEDS: Pantoprazole 80 MG, Admixture Fee 1 EACH in Sodium Chloride 0.9% 100 ML IVPB SCH (03:52)
[2023-03-15 06:42] LABS: #Eosinphils 0.2 thou/uL (0.0-0.7); #Monocytes 0.4 thou/uL (0.11-0.59); #Neutrophils 1.1 thou/uL (1.40-6.50); %Basophils 0.8 % (0.0-1.0); %Eosinophils 6.3 % (0.0-10.0); %Lymphocytes 32.1 % (21.0-51.0); %Monocytes 15.2 % (0.0-10.0); %Neutrophils 45.6 % (42.0-75.0); Hematocrit 21.8 % (42.0-52.0); Hemoglobin 7.2 g/dL (14.0-18.0); Mean Corpuscular Hemoglobin 31.9 pg (27.0-31.0); Mean Corpuscular Volume 96.5 fl (78.0-98.0); Mean Platelet Volume 10.5 fL (7.4-10.4); RBC Distribution Width 16.2 % (11.5-14.5); Red Blood Cell (RBC) Count 2.26 mill/uL (4.70-6.10); White Blood Cell (WBC) Count 2.4 10x3/uL (4.8-10.8)
[2023-03-15 06:43] LABS: Platelet Count 86 10x3/uL (130-400)
[2023-03-15 07:02] LABS: Anion Gap 8 mmol/L (10-20); BUN (Urea Nitrogen) 8 mg/dL (8.4-25.7); Calc. Creatinine Clearance 109 mL/min (70-130); Calcium 7.8 mg/dL (7.8-10.44); Carbon Dioxide 22 mmol/L (22-29); Chloride 110 mmol/L (98-107); Estimated GFR 69; Glucose 79 mg/dL (70-105); Potassium 3.2 mmol/L (3.5-5.1); Sodium 137 mmol/L (136-145)
[2023-03-15] MEDS ORDERED: Potassium Chloride 20 MEQ TAB PO SCH (07:45)
[2023-03-15] MEDS: Rifaximin 200 MG TAB PO SCH (08:57)
[2023-03-15] MEDS: traMADol HCl 50 MG TAB PO PRN (09:00)
[2023-03-15 11:37] VITALS: BP 139/66; TEMP 97.6
[2023-03-15] MEDS: Acetaminophen 325 MG TAB PO PRN (11:42)
== END 2023-03-15 14:01 | disposition home or self-care (01) | DRG 811 ==
LOC: ERS 04:15 → SUATTDRO 04:15 → 2NO 06:10
PROVIDERS: ADMIT Family Medicine; ATTEND Internal Medicine
PROC: 30233N1 Transfusion of Nonautologous Red Blood Cells into Peripheral Vein, Percutaneous Approach (ICD-10-PCS; 2023-03-11)
PROC: 0DJ08ZZ Inspection of Upper Intestinal Tract, Via Natural or Artificial Opening Endoscopic (ICD-10-PCS; principal; 2023-03-14)
PROC: 0DJD8ZZ Inspection of Lower Intestinal Tract, Via Natural or Artificial Opening Endoscopic (ICD-10-PCS; 2023-03-14)
DX: D62 Acute posthemorrhagic anemia (principal); I21.4 Non-ST elevation (NSTEMI) myocardial infarction; J96.90 Respiratory failure, unspecified, unspecified whether with hypoxia or hypercapnia; I13.0 Hypertensive heart and chronic kidney disease with heart failure and stage 1 through stage 4 chronic kidney disease, or unspecified chronic kidney disease; K25.9 Gastric ulcer, unspecified as acute or chronic, without hemorrhage or perforation; K57.30 Diverticulosis of large intestine without perforation or abscess without bleeding; D63.1 Anemia in chronic kidney disease; I50.9 Heart failure, unspecified; E78.00 Pure hypercholesterolemia, unspecified; Z87.891 Personal history of nicotine dependence; N18.30 Chronic kidney disease, stage 3 unspecified; F41.9 Anxiety disorder, unspecified; Z82.49 Family history of ischemic heart disease and other diseases of the circulatory system; K70.30 Alcoholic cirrhosis of liver without ascites; K76.82 Hepatic encephalopathy; K64.8 Other hemorrhoids; Z96.649 Presence of unspecified artificial hip joint; Z88.8 Allergy status to other drugs, medicaments and biological substances; Z79.899 Other long term (current) drug therapy
CPT/HCPCS: 36415; 36430; 71045; 78278; 78451; 80048; 80053; 82140; 82274; 83880; 84443; 84484; 85025; 85379; 85610; 86850; 86900; 86901; 93005; 93306; A9540; A9560; C9113; J1650; J2270; J2405; J2704; J3010; J3490; J7050; P9016

== ENCOUNTER 2023-07-19 22:49 | Inpatient (IN) | payer BC ==
[2023-07-19] MEDS ORDERED: Atropine Sulfate 1 mg/10 ml Syringe ONE ×2 (22:50→23:19)
[2023-07-19] MEDS ORDERED: EPINEPHrine 1 MG/10 ML Abboject SYRINGE ONE (22:50)
[2023-07-19] MEDS ORDERED: Sodium Bicarb 50 MEQ/50 ML Abboject 8.4% SYRINGE ONE (22:50)
[2023-07-19] MEDS ORDERED: Calcium Chloride 1 GM/10 ML Abboject SYRINGE ONE (22:50)
[2023-07-19] MEDS ORDERED: Amiodarone 150 MG/3 ML VIAL ONE (22:50)
[2023-07-19] MEDS ORDERED: Naloxone HCl 2 mg/2 ml Syringe ONE (23:09)
[2023-07-19] MEDS ORDERED: Nitroglycerin 50 MG/250 ML BOT 0 ML ONE (23:09)
[2023-07-19 23:11] LABS: #Basophils 0.1 thou/uL (0.0-0.2); #Eosinphils 0.4 thou/uL (0.0-0.7); #Monocytes 1.4 thou/uL (0.11-0.59); #Neutrophils 4.3 thou/uL (1.40-6.50); %Basophils 0.4 % (0.0-1.0); %Eosinophils 2.6 % (0.0-10.0); %Lymphocytes 52.5 % (21.0-51.0); %Monocytes 9.7 % (0.0-10.0); %Neutrophils 30.6 % (42.0-75.0); Hematocrit 34.7 % (42.0-52.0); Hemoglobin 10.5 g/dL (14.0-18.0); Mean Corpuscular HGB CONC 30.3 g/dL (32.0-36.0); Mean Corpuscular Hemoglobin 31.1 pg (27.0-31.0); Mean Corpuscular Volume 102.7 fl (78.0-98.0); Mean Platelet Volume 11.5 fL (7.4-10.4); Platelet Count 134 10x3/uL (130-400); RBC Distribution Width 13.9 % (11.5-14.5); Red Blood Cell (RBC) Count 3.38 mill/uL (4.70-6.10)
[2023-07-19 23:14] LABS: Base Excess (BEa) -21.4 mEq/L (-2.0 to +3.0); Calcium, Ionized (arterial) 1.41 mmol/L (1.12-1.30); Carboxyhemoglobin (COHb) 0.2 gm% (0.0-3.0); Hematocrit-ABG 31 % (42.0-52.0); Hemoglobin (Hb) 10.5 g/dL (14.0-18.0); Potassium - ABG Lab 4.99 mmol/L (3.70-5.30)
[2023-07-19 23:17] LABS: CO2 Tension 86.4 mmHg (35.0-45.0); O2 Tension (PaO2), arterial 58.7 mmHg (80.0-100.0); pH, Arterial 6.803 (7.35-7.45)
[2023-07-19] MEDS ORDERED: NOREPINEPHRINE 8 MG/250 ML-D5W 250 ML ONE (23:17)
[2023-07-19 23:18] LABS: Actual Bicarbonate (HCO3a) 13.2 mEq/L (22-28); Puncture Site LBA
[2023-07-19] MEDS ORDERED: Verapamil 5 MG/2 ML VIAL ONE (23:19)
[2023-07-19] MEDS ORDERED: Heparin 10,000 UNITS/ 10 ML VIAL ONE (23:19)
[2023-07-19] MEDS ORDERED: Nitroglycerin 50 MG/250 ML BOT 250 ML ONE (23:19)
[2023-07-19 23:25] LABS: INR-International Normal Ratio 1.5; Prothrombin Time 18.4 sec (12.0-14.7)
[2023-07-19 23:26] LABS: PTT 50.7 sec (22.9-36.1)
[2023-07-19 23:33] LABS: D-Dimer Test 10.62 *mcg/mL (0.27-0.43)
[2023-07-19 23:37] LABS: Troponin I Less than 0.010 ng/mL (< 0.028)
[2023-07-20 00:05] LABS: Actual Bicarbonate (HCO3a) 21.3 mEq/L (22-28); Base Excess (BEa) -8.3 mEq/L (-2.0 to +3.0); Calcium, Ionized (arterial) 1.36 mmol/L (1.12-1.30); Carboxyhemoglobin (COHb) 0.5 gm% (0.0-3.0); Hematocrit-ABG 31 % (42.0-52.0); Hemoglobin (Hb) 10.6 g/dL (14.0-18.0); O2 Tension (PaO2), arterial 73.2 mmHg (80.0-100.0); Potassium - ABG Lab 5.77 mmol/L (3.70-5.30)
[2023-07-20 00:10] LABS: CO2 Tension 66.2 mmHg (35.0-45.0); Puncture Site RRA; pH, Arterial 7.126 (7.35-7.45)
[2023-07-20 00:28] LABS: Albumin 2.8 g/dL (3.5-5.0)
[2023-07-20 00:29] LABS: Chloride 103 mmol/L (98-107); Sodium 139 mmol/L (136-145)
[2023-07-20 00:30] LABS: Calcium 10.5 mg/dL (7.8-10.44)
[2023-07-20 00:31] LABS: Globulin 2.9 g/dL (2.4-3.5); Glucose 128 mg/dL (70-105); Potassium 6.1 mmol/L (3.5-5.1); Protein, Total 5.7 g/dL (6.0-8.3)
[2023-07-20 00:32] LABS: Anion Gap 22 mmol/L (10-20); Bilirubin, Total 1.5 mg/dL (0.2-1.2); Carbon Dioxide 20 mmol/L (22-29)
[2023-07-20 00:33] LABS: Alkaline Phosphatase 151 U/L (40-110)
[2023-07-20 00:34] LABS: Calc. Creatinine Clearance 0 mL/min (70-130); Estimated GFR 19
[2023-07-20 00:35] LABS: BUN (Urea Nitrogen) 47 mg/dL (8.4-25.7)
[2023-07-20 00:36] LABS: AST (SGOT) 144 U/L (5-34)
[2023-07-20 00:37] LABS: ALT (SGPT) 48 U/L (8-55); Lipase 193 U/L (8-78)
[2023-07-20] MEDS ORDERED: Ventilator Sedation Protocol 1 EACH FS SCH (00:57)
[2023-07-20] MEDS ORDERED: Propofol BOLUS 1,000 MG/100 ML VIAL IV PRN (01:00)
[2023-07-20] MEDS ORDERED: Fentanyl CADD 100 ML IV SCH (01:00)
[2023-07-20] MEDS ORDERED: DISCONTINUE PREVIOUS NARCOTIC PAIN MEDICATIONS AND BENZODIAZEPINES FS SCH (01:00)
[2023-07-20] MEDS ORDERED: Morphine 2 MG/ML VIAL SLOW IVP PRN (01:00)
[2023-07-20] MEDS ORDERED: Fentanyl BOLUS 250 ML IVPB PRN (01:00)
[2023-07-20] MEDS ORDERED: Lorazepam 2 MG/ML VIAL SLOW IVP PRN (01:00)
[2023-07-20] MEDS ORDERED: Propofol 1,000 MG/100 ML VIAL IV PRN (01:00)
[2023-07-20] MEDS ORDERED: Insulin Regular 300 UNITS/3 ML VIAL IVP SCH (01:15)
[2023-07-20] MEDS ORDERED: Dextrose 50% Abboject 50 ML SYRINGE SLOW IVP SCH ×2 (01:15→03:45)
[2023-07-20] MEDS ORDERED: NOREPINEPHRINE 8 MG/250 ML-D5W 250 ML IVPB PRN (02:02)
[2023-07-20] MEDS ORDERED: Ipratropium/Albuterol 3 ML NEB NEB PRN (02:02)
[2023-07-20] MEDS ORDERED: Vasopressin 20 UNITS/ML VIAL ONE ×2 (02:03→02:05)
[2023-07-20 02:16] LABS: Anion Gap 19 mmol/L (10-20); BUN (Urea Nitrogen) 48 mg/dL (8.4-25.7); Calc. Creatinine Clearance 0 mL/min (70-130); Calcium 9.9 mg/dL (7.8-10.44); Carbon Dioxide 25 mmol/L (22-29); Chloride 103 mmol/L (98-107); Estimated GFR 18; Glucose 95 mg/dL (70-105); Sodium 139 mmol/L (136-145)
[2023-07-20 02:19] LABS: Potassium 7.7 mmol/L (3.5-5.1)
[2023-07-20] MEDS ORDERED: Insulin Regular 300 UNITS/3 ML VIAL ONE (02:57)
[2023-07-20] MEDS ORDERED: Dextrose 50% Abboject 50 ML SYRINGE ONE (02:58)
[2023-07-20] MEDS ORDERED: Calcium Chloride 1 GM/10 ML Abboject SYRINGE ONE (02:59)
[2023-07-20] MEDS ORDERED: Furosemide 100 MG/10 ML VIAL SLOW IVP SCH (03:00)
[2023-07-20] MEDS ORDERED: EPINEPHrine 1 MG/ML VIAL ONE (03:09)
[2023-07-20 03:11] LABS: Lactic Acid 6.8 mmol/L (0.5-2.2)
[2023-07-20 03:32] LABS: Actual Bicarbonate (HCO3a) 22.9 mEq/L (22-28); Base Excess (BEa) -4.2 mEq/L (-2.0 to +3.0); CO2 Tension 52.6 mmHg (35.0-45.0); Calcium, Ionized (arterial) 1.26 mmol/L (1.12-1.30); Carboxyhemoglobin (COHb) 0.3 gm% (0.0-3.0); Hematocrit-ABG 27 % (42.0-52.0); Hemoglobin (Hb) 9.1 g/dL (14.0-18.0); pH, Arterial 7.257 (7.35-7.45)
[2023-07-20 03:34] LABS: O2 Tension (PaO2), arterial 56.8 mmHg (80.0-100.0)
[2023-07-20 03:35] LABS: Potassium - ABG Lab 8.03 mmol/L (3.70-5.30)
[2023-07-20 03:36] LABS: Puncture Site Arterial Line
[2023-07-20] MEDS ORDERED: Calcium Chloride 1 GM/10 ML Abboject SYRINGE IVP SCH (03:45)
[2023-07-20] MEDS ORDERED: EPINEPHrine 4 MG in Dextrose 5% in Water 250 ML IVP SCH (03:45)
[2023-07-20] MEDS ORDERED: Sodium Chloride 0.9% 500 ML IV SCH (03:45)
[2023-07-20] MEDS ORDERED: Albumin 25% 25 GM/100 ML BOT IVPB SCH (03:45)
[2023-07-20] MEDS ORDERED: Insulin Regular 300 UNITS/3 ML VIAL SC SCH (03:45)
[2023-07-20] MEDS ORDERED: Albumin 25% 100 ML ONE (03:46)
[2023-07-20] MEDS ORDERED: Vasopressin 20 UNITS in Sodium Chloride 0.9% 50 ML IV SCH (04:00)
[2023-07-20] MEDS ORDERED: EPINEPHrine 4 MG in Dextrose 5% in Water 250 ML IV SCH (04:00)
[2023-07-20] MEDS ORDERED: DOBUTamine 500 mg/250 ml 250 ML ONE (04:25)
[2023-07-20] MEDS ORDERED: DOBUTamine 500 mg/250 ml 250 ML IVPB SCH (04:30)
[2023-07-20 05:01] LABS: ALT (SGPT) 67 U/L (8-55); AST (SGOT) 193 U/L (5-34); Albumin 2.3 g/dL (3.5-5.0); Alkaline Phosphatase 132 U/L (40-110); Anion Gap 19 mmol/L (10-20); BUN (Urea Nitrogen) 49 mg/dL (8.4-25.7); Bilirubin, Total 1.7 mg/dL (0.2-1.2); Calc. Creatinine Clearance 38 mL/min (70-130); Calcium 9.7 mg/dL (7.8-10.44); Carbon Dioxide 23 mmol/L (22-29); Chloride 105 mmol/L (98-107); Estimated GFR 17; Globulin 2.5 g/dL (2.4-3.5); Glucose 116 mg/dL (70-105); Protein, Total 4.8 g/dL (6.0-8.3); Sodium 139 mmol/L (136-145)
[2023-07-20 05:05] LABS: Potassium 8.1 mmol/L (3.5-5.1)
[2023-07-20 05:59] VITALS: BMI 37.8
[2023-07-20] MEDS ORDERED: Sodium Chloride 0.9% 1,000 ML IV SCH (08:00)
[2023-07-20] MEDS ORDERED: Sodium Bicarb 50 MEQ/50 ML Abboject 8.4% SYRINGE IVP SCH (08:00)
[2023-07-20] MEDS ORDERED: LOKELMA 10 GM PACKET PO SCH (09:00)
[2023-07-20] MEDS ORDERED: Pantoprazole 40 MG VIAL IVP SCH (09:00)
[2023-07-20] MEDS ORDERED: Famotidine/PF 20 mg/2ml Vial SLOW IVP SCH (09:00)
[2023-07-23] MEDS ORDERED: FLU VACC QS2023-24(6MOS UP)/PF 60 MCG/0.5 ML SYRINGE IM ONE (09:00)
== END 2023-07-20 10:30 | disposition expired | DRG 208 ==
LOC: ERS 22:49 → CCU 07-20 01:09
PROVIDERS: ADMIT Internal Medicine; ATTEND Internal Medicine
PROC: 4A133R1 Monitoring of Arterial Saturation, Peripheral, Percutaneous Approach (ICD-10-PCS; 2023-07-19)
PROC: 30233J1 Transfusion of Nonautologous Serum Albumin into Peripheral Vein, Percutaneous Approach (ICD-10-PCS; 2023-07-19)
PROC: 3E033XZ Introduction of Vasopressor into Peripheral Vein, Percutaneous Approach (ICD-10-PCS; 2023-07-19)
PROC: 5A12012 Performance of Cardiac Output, Single, Manual (ICD-10-PCS; principal; 2023-07-20)
PROC: 5A1935Z Respiratory Ventilation, Less than 24 Consecutive Hours (ICD-10-PCS; 2023-07-20)
PROC: 03HY32Z Insertion of Monitoring Device into Upper Artery, Percutaneous Approach (ICD-10-PCS; 2023-07-20)
PROC: 4A133B1 Monitoring of Arterial Pressure, Peripheral, Percutaneous Approach (ICD-10-PCS; 2023-07-20)
PROC: 4A133J1 Monitoring of Arterial Pulse, Peripheral, Percutaneous Approach (ICD-10-PCS; 2023-07-20)
PROC: 0BH17EZ Insertion of Endotracheal Airway into Trachea, Via Natural or Artificial Opening (ICD-10-PCS; 2023-07-20)
PROC: 0DH67UZ Insertion of Feeding Device into Stomach, Via Natural or Artificial Opening (ICD-10-PCS; 2023-07-20)
DX: J96.01 Acute respiratory failure with hypoxia (principal); I50.33 Acute on chronic diastolic (congestive) heart failure; I13.0 Hypertensive heart and chronic kidney disease with heart failure and stage 1 through stage 4 chronic kidney disease, or unspecified chronic kidney disease; N17.9 Acute kidney failure, unspecified; R57.9 Shock, unspecified; E87.20 Acidosis, unspecified; G93.1 Anoxic brain damage, not elsewhere classified; I46.9 Cardiac arrest, cause unspecified; Z66 Do not resuscitate; J96.02 Acute respiratory failure with hypercapnia; D63.1 Anemia in chronic kidney disease; N18.30 Chronic kidney disease, stage 3 unspecified; E87.5 Hyperkalemia; F41.9 Anxiety disorder, unspecified; F32.A Depression, unspecified; D72.829 Elevated white blood cell count, unspecified; I49.01 Ventricular fibrillation; Z96.641 Presence of right artificial hip joint; E78.5 Hyperlipidemia, unspecified; K70.30 Alcoholic cirrhosis of liver without ascites; T17.920A Food in respiratory tract, part unspecified causing asphyxiation, initial encounter; Z98.890 Other specified postprocedural states; Z87.891 Personal history of nicotine dependence; Z79.899 Other long term (current) drug therapy; Z88.8 Allergy status to other drugs, medicaments and biological substances; Z79.890 Hormone replacement therapy
CPT/HCPCS: 36415; 36416; 36600; 71045; 80053; 82805; 83605; 83690; 83880; 84484; 85025; 85379; 85610; 85730; 93005; 94002; 94003; 94640; 94760; J0171; J0282; J0283; J0461; J1250; J1644; J1815; J2310; J3010; J7050; J7070; J7611; J7999; P9047